=== PATIENT | female | born 1955 | race Caucasian/White ===

== ENCOUNTER → 2016-10-03 | Outpatient (CLI) | payer OTHER ==
[2016-10-03 12:36] LABS: CH 29.1; CHCM 30.5; HCT 28.1 % (34.0-46.0); HDW 3.07; HGB 8.8 gm/dL (11.4-16.0); Hypochromasia Marked; MCHC 31.3 g/dL (31.0-37.0); MCV 95.8 fL (80.0-100.0); Mean Platelet Volume 8.4; RBC 2.94 m/uL (3.80-5.40); RDW 14.3 % (11.5-15.5); WBC 7.9 k/uL (3.8-10.6)
[2016-10-03 12:57] LABS: Appearance,Urine Clear (Clear); Bilirubin,Urine Negative (Negative); Glucose,Urine (UA) Negative (Negative); Ketones,Urine Negative (Negative); Leukocyte Esterase,Urine Moderate (Negative); Nitrite,Urine Negative (Negative); PH, Urine 6.5 (5.0-8.0); Particle Count 1605; Protein,Urine Trace (Negative); Specific Gravity,Urine 1.005 (1.001-1.035); Squamous Epithelial Cell,Urine 1 /hpf (0-4); UA Billing (MACRO vs. MICRO) MICRO; Urobilinogen,Urine <2.0 mg/dL (<2.0); WBC,Urine 8 /hpf (0-5)
[2016-10-03 13:08] LABS: Calcium 9.1 mg/dL (8.4-10.2); Magnesium 1.9 mg/dL (1.6-2.3); Phosphorous 4.3 mg/dL (2.5-4.5); Potassium 4.4 mmol/L (3.5-5.1); Uric Acid 5.7 mg/dL (3.7-7.4)
[2016-10-03 13:19] LABS: % Iron Saturation 15.4 % (20-50)
== END | disposition home or self-care (01) ==
LOC: LABWHC1 12:00
PROVIDERS: ATTEND Nurse Practitioner Family
DX: N17.9 Acute kidney failure, unspecified (principal); D64.9 Anemia, unspecified; E83.42 Hypomagnesemia; N39.0 Urinary tract infection, site not specified; E21.3 Hyperparathyroidism, unspecified; M10.9 Gout, unspecified
CPT/HCPCS: 36415; 80048; 81001; 82306; 82728; 83540; 83550; 83735; 83970; 84100; 84550; 85027

== ENCOUNTER → 2016-11-08 | Outpatient (CLI) | payer OTHER ==
[2016-11-08 11:18] LABS: Appearance,Urine Cloudy (Clear); Bilirubin,Urine Negative (Negative); Glucose,Urine (UA) Negative (Negative); Ketones,Urine Negative (Negative); Leukocyte Esterase,Urine Large (Negative); Mucus,Urine Rare /hpf; Nitrite,Urine Negative (Negative); Particle Count 2970; Protein,Urine Trace (Negative); RBC,Urine 5 /hpf (0-5); Specific Gravity,Urine 1.009 (1.001-1.035); Squamous Epithelial Cell,Urine 1 /hpf (0-4); UA Billing (MACRO vs. MICRO) MICRO; Urobilinogen,Urine <2.0 mg/dL (<2.0); WBC,Urine 60 /hpf (0-5)
[2016-11-08 11:21] LABS: CH 29.8; CHCM 30.9; HCT 28.1 % (34.0-46.0); HDW 2.81; HGB 8.8 gm/dL (11.4-16.0); Hypochromasia Moderate; MCH 30.3 pg (25.0-35.0); MCHC 31.3 g/dL (31.0-37.0); MCV 96.7 fL (80.0-100.0); RBC 2.91 m/uL (3.80-5.40); RDW 15.6 % (11.5-15.5); WBC 7.6 k/uL (3.8-10.6)
[2016-11-08 12:46] LABS: Calcium 9.2 mg/dL (8.4-10.2); Phosphorous 5.7 mg/dL (2.5-4.5); Potassium 5.5 mmol/L (3.5-5.1); Uric Acid 6.8 mg/dL (3.7-7.4)
[2016-11-08 12:55] LABS: % Iron Saturation 18.2 % (20-50)
== END | disposition home or self-care (01) ==
LOC: LABWHC1 10:25
PROVIDERS: ATTEND Nurse Practitioner Family
DX: N17.9 Acute kidney failure, unspecified (principal); D50.9 Iron deficiency anemia, unspecified; N39.0 Urinary tract infection, site not specified; E21.3 Hyperparathyroidism, unspecified; E55.9 Vitamin D deficiency, unspecified; M10.9 Gout, unspecified
CPT/HCPCS: 36415; 80048; 81001; 82306; 82728; 83540; 83550; 83735; 83970; 84100; 84550; 85027

== ENCOUNTER 2016-11-22 07:57 | Day surgery (SDC) | payer OTHER ==
[~2016-11-22 07:57] MED LIST: ALPRAZolam 0.25 MG TAB PO PRN; ASPIRIN 325 MG TAB PO STA; SODIUM CHLORIDE 0.9% 1,000 ML in EMPTY BAG 1 BAG IV ONE
[2016-11-22] MEDS ORDERED: SODIUM CHLORIDE 0.9% 1,000 ML IV ONE (08:15)
[2016-11-22 08:34] VITALS: RESP 16; TEMP 97
[2016-11-22 08:44] LABS: Basophils % (A) 1 %; CH 30.7; Eosinophils # (A) 0.2 k/uL (0-0.7); Eosinophils % (A) 3 %; HCT 27.6 % (34.0-46.0); HDW 2.85; HGB 8.7 gm/dL (11.4-16.0); Hypochromasia Slight; Luc # (Auto) 0.08; Luc % (Auto) 1; Lymphocytes # (A) 1.3 k/uL (1.0-4.8); Lymphocytes % (A) 21 %; MCH 30.4 pg (25.0-35.0); MCHC 31.6 g/dL (31.0-37.0); MCV 96.1 fL (80.0-100.0); Mean Platelet Volume 9.6; Monocytes # (A) 0.4 k/uL (0-1.0); Monocytes % (A) 7 %; Neutrophils % (A) 66 %; RBC 2.87 m/uL (3.80-5.40); RDW 15.5 % (11.5-15.5); WBC 6.1 k/uL (3.8-10.6); WBC (Perox) 5.59
[2016-11-22 08:57] LABS: Calcium 8.8 mg/dL (8.4-10.2); Potassium 4.6 mmol/L (3.5-5.1)
[2016-11-22] MEDS ORDERED: CLOPIDOGREL 75 MG TAB ONE (09:09)
[2016-11-22] MEDS ORDERED: CLOPIDOGREL 75 MG TAB PO ONE (09:13)
[2016-11-22] MEDS ORDERED: ASPIRIN 325 MG TAB PO ONE (09:14)
[2016-11-22 09:23] LABS: Glucose,Whole Blood 104 mg/dL (75-99)
[2016-11-22] MEDS ORDERED: MIDAZOLAM 2 MG/2 ML VIAL IV ONE (10:00)
[2016-11-22] MEDS ORDERED: LIDOCAINE 2% INJ 20 MG/ML SQ ONE (10:15)
[2016-11-22] MEDS ORDERED: IODIXANOL 320 MG/ML 100 ML INTRAARTER ONE (10:29)
[2016-11-22] MEDS ORDERED: SODIUM CHLORIDE 0.9% 1,000 ML IV SCH (10:45)
--- NOTE | 2016-11-22 11:26 | PCN ---
DATE OF PROCEDURE: 11/22/2016 PERFORMING PHYSICIAN: Erlin Muñiz MD, soap slabber. PROCEDURE PERFORMED: 1. An aortic arch angiogram. 2. Selective right and left carotid angiogram. 3. Selective right common femoral artery angiogram. INDICATION: This is a pleasant, 61-year-old female patient with a known coronary artery disease and prior coronary artery bypass grafting who underwent a carotid duplex study in our office and that showed severe right internal carotid artery disease. She was brought today to undergo an aortic arch and carotid angiogram. APPROACH: Right common femoral artery. COMPLICATIONS: None. LEVEL OF SEDATION: Moderate with a length of sedation of about a half an hour. PROCEDURE DESCRIPTION: After obtaining an informed consent, the patient was brought to the cardiac landscaping and groundskeeping laborer. The right common femoral artery was cannulated using micropuncture technique. The micropuncture wire passed easily. Then I placed a 5-Brazilian sheath in the right common femoral artery. Subsequently, I did an aortic arch angiogram using 5-Brazilian pigtail catheter and bilateral carotid angiogram using JB2 catheter. The procedure was completed without any complication. SELECTIVE PERIPHERAL ANGIOGRAM: 1. The aortic arch is a bovine arch and seems to be angiographically normal. 2. The right carotid system: The right common carotid artery appeared to have mild disease only by the bifurcation into internal and external carotid. The right external carotid artery appeared to have severe lesion in the range of 80% to 90%. The right internal carotid artery appeared to have a plaque as well in the range of 70%. 3. The left carotid system: The left common carotid artery appeared to be angiographically normal. The left internal carotid artery appeared to have mild disease only. The left external carotid artery appeared to be have mild disease only as well. CONCLUSION: 1. Bovine arch. 2. Severe disease involving the ostial and proximal right internal carotid artery. POSTPROCEDURE MANAGEMENT: 1. Maximize medical treatment. 2. Follow up with the patient.
--- NOTE | 2016-11-22 11:27 | IR ---
EXAMINATION TYPE: IR angio aortic arch DATE OF EXAM: 11/22/2016 11:11 AM COMPARISON: NONE HISTORY: Carotid stenosis Fluoroscopy support supplied to the referring clinician. See dictated report from cardiology, 3 lloyd nay fluoroscopy time, 132 intraoperative C-arm images document the procedure
[2016-11-22 16:21] VITALS: PULSE 54
[2016-11-22 18:26] VITALS: BP 145/72
== END 2016-11-22 17:02 | disposition home or self-care (01) ==
LOC: CATHCVL 07:57
PROVIDERS: ATTEND Internal Medicine Interventional Cardiology
DX: I65.21 Occlusion and stenosis of right carotid artery (principal); I10 Essential (primary) hypertension; E78.5 Hyperlipidemia, unspecified; I25.5 Ischemic cardiomyopathy; I25.10 Atherosclerotic heart disease of native coronary artery without angina pectoris; Z95.1 Presence of aortocoronary bypass graft; Z87.891 Personal history of nicotine dependence; Z82.49 Family history of ischemic heart disease and other diseases of the circulatory system; E11.9 Type 2 diabetes mellitus without complications; Z79.84 Long term (current) use of oral hypoglycemic drugs; Z79.02 Long term (current) use of antithrombotics/antiplatelets; Z79.82 Long term (current) use of aspirin; Z79.899 Other long term (current) drug therapy
CPT/HCPCS: 36222; 80048; 85025; 99152; 99153; C1769 ×3; C1894; J2001; J2250; Q9967

== ENCOUNTER 2017-01-08 23:27 | Inpatient (IN) | payer OTHER ==
--- NOTE | 2017-01-09 00:03 | ED ---
Weakness HPI - General Chief complaint: Weakness Stated complaint: Weakness Time Seen by Provider: 01/08/17 23:30 Source: patient, family, EMS Mode of arrival: EMS Limitations: altered mental status - History of Present Illness Initial comments: This patient is 61-year-old woman brought in by EMS to be evaluated for mental status changes. Most of the history is from the patient's granddaughter, who is at the bedside, and states that the patient has been confused and disoriented. Family members were speaking to her she was unable to understand what they were saying. At one point she appeared to be trying to converse with someone who was not there. The patient is denying complaints but stating that she cannot feel her body. She is not having pain. No dyspnea. She did have a loose bowel movement but they state there was no blood. MD Complaint: generalized weakness, lack of energy -: hour(s) - Related Data Home Medications Medication Instructions Recorded Confirmed Atorvastatin [Lipitor] 40 mg PO HS 08/16/16 01/08/17 Previous Rx's Medication Instructions Recorded Amiodarone [Cordarone] 200 mg PO DAILY #30 tab 07/04/16 Clopidogrel [Plavix] 75 mg PO DAILY #30 tab 07/04/16 Metoprolol Tartrate [Lopressor] 25 mg PO BID #60 tab 07/04/16 Pioglitazone HCl [Actos] 30 mg PO DAILY #60 tab 07/04/16 Aspirin 81 mg PO DAILY #30 chew 08/20/16 Cefuroxime [Ceftin] 250 mg PO BID #6 tablet 08/20/16 Allergies Allergy/AdvReac Type Severity Reaction Status Date / Time No Known Allergies Allergy Verified 01/08/17 23:31 Review of Systems ROS Statement: Those systems with pertinent positive or pertinent negative responses have been documented in the HPI. ROS Other: All systems not noted in ROS Statement are negative. Limitations: ROS unobtainable due to patients medical condition Constitutional: Denies: fever Respiratory: Denies: cough, dyspnea Cardiovascular: Denies: chest pain Gastrointestinal: Reports: diarrhea. Denies: abdominal pain Musculoskeletal: Denies: back pain Neurological: Reports: weakness. Denies: headache Past Medical History Past Medical History: COPD, Diabetes Mellitus, Hypertension, Myocardial Infarction ([place]) Additional Past Medical History / Comment(s): Obesity, coronary artery disease, hypertension, hyperlipidemia, diabetes mellitus, right internal carotid artery disease with less than 70% blockage, poor dental hygiene with multiple decayed teeth both in the upper and lower jaws, COPD with a baseline FEV1 of 62% of predicted, CHF with a preoperative ejection fraction of 35-40%, recently dx w/ rt breast cancer-no tx as of yet.PT HAD A PNE VACCINE NOT SURE OF DATE BUT PER OLD HX PT DUE IN 2017. Last Myocardial Infarction Date:: "I was young" unsure of year| History of Any Multi-Drug Resistant Organisms: None Reported Past Surgical History: Coronary Bypass/CABG, Heart Catheterization, Tubal Ligation Additional Past Surgical History / Comment(s): double cabg 06-28-16 Past Anesthesia/Blood Transfusion Reactions: No Reported Reaction Past Psychological History: No Psychological Hx Reported Smoking Status: Former smoker Past Alcohol Use History: None Reported Additional Past Alcohol Use History / Comment(s): smoked x 40 years, quit jun 20 2016. Past Drug Use History: None Reported - Past Family History Mother History Unknown: Yes Family Medical History: Diabetes Mellitus Additional Family Medical History / Comment(s): complications of DM at 57 Father History Unknown: Yes Family Medical History: Myocardial Infarction ([place]) Additional Family Medical History / Comment(s): passed in 60's alcoholism General Exam Limitations: no limitations General appearance: alert, in no apparent distress Head exam: Present: atraumatic, normocephalic Eye exam: Present: normal appearance. Absent: scleral icterus, conjunctival injection ENT exam: Present: mucous membranes dry Neck exam: Present: normal inspection, full ROM. Absent: meningismus Respiratory exam: Present: normal lung sounds bilaterally. Absent: respiratory distress, wheezes, rales, rhonchi, stridor, accessory muscle use Cardiovascular Exam: Present: regular rate, normal rhythm, normal heart sounds. Absent: systolic murmur, diastolic murmur, rubs, gallop GI/Abdominal exam: Present: soft. Absent: distended, tenderness, guarding, rebound, rigid, mass Extremities exam: Present: normal inspection, normal capillary refill. Absent: pedal edema, calf tenderness Back exam: Present: normal inspection. Absent: CVA tenderness (R), CVA tenderness (L) Neurological exam: Present: alert, CN II-XII intact. Absent: oriented X3 ( Patient is oriented to person and place but not date), motor sensory deficit Skin exam: Present: warm, dry, intact, pallor. Absent: rash Course Vital Signs 01/08/17 01/09/17 01/09/17 23:28 00:31 01:00 Temperature 100.8 F H 99 F Pulse Rate 80 77 75 Respiratory 20 18 16 Rate Blood Pressure 119/56 123/74 108/53 O2 Sat by Pulse 100 97 97 Oximetry 01/09/17 02:00 Temperature 98.9 F Pulse Rate 76 Respiratory 20 Rate Blood Pressure 121/78 O2 Sat by Pulse 98 Oximetry EKG Findings - EKG Comments: EKG Findings:: There are lateral and inferior ST abnormalities - EKG Results: EKG: interpreted by ERMD, sinus rhythm (Rate 75 bpm), normal axis, normal QRS Medical Decision Making - Lab Data Result diagrams: 01/09/17 00:49 01/09/17 00:49 Lab Results 01/08/17 01/09/17 01/09/17 Range/Units 23:46 00:49 00:49 WBC (3.8-10.6) k/uL RBC (3.80-5.40) m/uL Hgb (11.4-16.0) gm/dL Hct (34.0-46.0) % MCV (80.0-100.0) fL MCH (25.0-35.0) pg MCHC (31.0-37.0) g/dL RDW (11.5-15.5) % Plt Count (150-450) k/uL Manual Slide Review Large Platelets PT (9.0-12.0) sec INR (<1.1) APTT (22.0-30.0) sec Sodium 137 (137-145) mmol/L Potassium 5.0 (3.5-5.1) mmol/L Chloride 102 (98-107) mmol/L Carbon Dioxide 25 (22-30) mmol/L Anion Gap 10 mmol/L BUN 36 H (7-17) mg/dL Creatinine 2.40 H (0.52-1.04) mg/dL Est GFR (MDRD) Af Amer 25 (>60 ml/min/1.73 sqM) Est GFR (MDRD) Non-Af 20 (>60 ml/min/1.73 sqM) Glucose 123 H (74-99) mg/dL Plasma Lactic Acid Narayan 1.4 (0.7-2.0) mmol/L Calcium 8.2 L (8.4-10.2) mg/dL Phosphorus 4.0 (2.5-4.5) mg/dL Magnesium 1.6 (1.6-2.3) mg/dL Total Bilirubin 0.9 (0.2-1.3) mg/dL AST 46 H (14-36) U/L ALT 56 H (9-52) U/L Alkaline Phosphatase 175 H (38-126) U/L Troponin I <0.012 (0.000-0.034) ng/mL Total Protein 6.2 L (6.3-8.2) g/dL Albumin 3.1 L (3.5-5.0) g/dL Blood Type Blood Type Recheck Antibody Screen Crossmatch Spec Expiration Date 01/09/17 01/09/17 01/09/17 Range/Units 00:49 00:49 00:49 WBC 0.3 L* (3.8-10.6) k/uL RBC 2.17 L (3.80-5.40) m/uL Hgb 6.6 L* D (11.4-16.0) gm/dL Hct 20.1 L (34.0-46.0) % MCV 92.9 (80.0-100.0) fL MCH 30.4 (25.0-35.0) pg MCHC 32.7 (31.0-37.0) g/dL RDW 15.1 (11.5-15.5) % Plt Count 96 L D (150-450) k/uL Manual Slide Review Performed Large Platelets Present PT 12.0 (9.0-12.0) sec INR 1.2 (<1.1) APTT 25.3 (22.0-30.0) sec Sodium (137-145) mmol/L Potassium (3.5-5.1) mmol/L Chloride (98-107) mmol/L Carbon Dioxide (22-30) mmol/L Anion Gap mmol/L BUN (7-17) mg/dL Creatinine (0.52-1.04) mg/dL Est GFR (MDRD) Af Amer (>60 ml/min/1.73 sqM) Est GFR (MDRD) Non-Af (>60 ml/min/1.73 sqM) Glucose (74-99) mg/dL Plasma Lactic Acid Narayan (0.7-2.0) mmol/L Calcium (8.4-10.2) mg/dL Phosphorus (2.5-4.5) mg/dL Magnesium (1.6-2.3) mg/dL Total Bilirubin (0.2-1.3) mg/dL AST (14-36) U/L ALT (9-52) U/L Alkaline Phosphatase (38-126) U/L Troponin I (0.000-0.034) ng/mL Total Protein (6.3-8.2) g/dL Albumin (3.5-5.0) g/dL Blood Type A Positive Blood Type Recheck No Antibody Screen NEGATIVE Crossmatch See Detail Spec Expiration Date 01/12/2017 - 2344 Disposition Clinical Impression: Neutropenia, Pancytopenia, Acute renal failure Disposition: ADMITTED IP TO THIS [facility] Condition: Serious
--- NOTE | 2017-01-09 00:44 | XR ---
EXAM: XR Chest, 1 View. CLINICAL HISTORY: Reason: MS change TECHNIQUE: Frontal view of the chest. COMPARISON: 07/04/2016 FINDINGS: Lungs: Bilateral pulmonary hyperinflation. No focal consolidation. Pleural space: Unremarkable. No pneumothorax. Heart: Postoperative mediastinum and cardiomediastinal silhouette. Mediastinum: See above. Bones/joints: No acute osseous abnormality. IMPRESSION: No acute cardiopulmonary process.
[2017-01-09 01:03] LABS: Aty Lym Flag Moderate; CH 30.4; CHCM 32.8; HCT 20.1 % (34.0-46.0); HDW 3.23; MCH 30.4 pg (25.0-35.0); MCHC 32.7 g/dL (31.0-37.0); MCV 92.9 fL (80.0-100.0); Mean Platelet Volume 9.9; RBC 2.17 m/uL (3.80-5.40); RDW 15.1 % (11.5-15.5); WBC (Perox) 0.31
--- NOTE | 2017-01-09 01:05 | CT ---
EXAM: CT Head Without Intravenous Contrast. CLINICAL HISTORY: Reason: weakness TECHNIQUE: Axial computed tomography images of the head/brain without intravenous contrast. CTDI is 57.40 mGy and DLP is 96.50 mGy-cm This CT exam was performed using one or more of the following dose reduction techniques: automated exposure control, adjustment of the mA and/or kV according to patient size, and/or use of iterative reconstruction technique. COMPARISON: 06/19/2016 FINDINGS: Brain: No acute intracranial hemorrhage, loss of sal-white differentiation, or significant mass effect. Areas of hypoattenuation in the periventricular white matter are compatible with the sequela of chronic small vessel ischemic disease. Ventricles: Unremarkable. No ventriculomegaly. Bones/joints: Unremarkable. No acute fracture. Soft tissues: Unremarkable. Sinuses: Unremarkable as visualized. No acute sinusitis. Mastoid air cells: Unremarkable. IMPRESSION: No acute cardiopulmonary process.
[2017-01-09 01:11] LABS: Calcium 8.2 mg/dL (8.4-10.2); Magnesium 1.6 mg/dL (1.6-2.3); Total Bilirubin 0.9 mg/dL (0.2-1.3); Total Protein 6.2 g/dL (6.3-8.2)
[2017-01-09 01:12] LABS: HGB 6.6 gm/dL (11.4-16.0); INR 1.2 (<1.1); Partial Thromboplastin Time 25.3 sec (22.0-30.0)
[2017-01-09] MEDS ORDERED: CEFEPIME 2 GM in SODIUM CHLORIDE 0.9% 50 ML IVPB STA (01:15)
[2017-01-09 01:25] LABS: Large Platelets Present; Manual Review Performed
[2017-01-09 01:26] LABS: Add Differential Manual Differential
[2017-01-09] MEDS ORDERED: SODIUM CHLORIDE 0.9% 1,000 ML IV ONE (01:44)
[2017-01-09 01:48] LABS: WBC 0.3 k/uL (3.8-10.6)
[2017-01-09] MEDS ORDERED: ONDANSETRON 4 MG/2 ML VIAL IVP PRN (02:12)
[2017-01-09] MEDS ORDERED: MORPHINE SULFATE 4 MG/ML SYRINGE IV PRN (02:12)
[2017-01-09] MEDS ORDERED: NALOXONE 0.4 MG/ML 1 ML VIAL IV PRN (02:12)
[2017-01-09] MEDS ORDERED: DOCUSATE 100 MG CAP PO PRN (02:12)
[2017-01-09 03:20] VITALS: BMI 29.3
[2017-01-09] MEDS ORDERED: IV VANCOMYCIN PER PHARMACY 1 EACH MISC MISCELLANE PRN (06:51)
[2017-01-09] MEDS: SODIUM CHLORIDE 0.9% 1,000 ML IV SCH ×3 (07:23→17:03)
[2017-01-09] MEDS ORDERED: VANCOMYCIN 1,500 MG in SODIUM CHLORIDE 0.9% 250 ML IVPB ONE (08:00)
[2017-01-09] MEDS ORDERED: RX INFO: IV CONTRAST WAS GIVEN 1 EACH MISC MISCELLANE PRN (08:19)
[2017-01-09] MEDS ORDERED: IOHEXOL 350 MG/ML 25 ML BOTTLE (ORAL USE) PO PRN (08:19)
[2017-01-09] MEDS: IOHEXOL 350 MG/ML 25 ML BOTTLE (ORAL USE) PO PRN ×2 (08:51→09:45)
[2017-01-09] MEDS ORDERED: PANTOPRAZOLE 40 MG/10 ML VIAL IV SCH (09:00)
[2017-01-09] MEDS: FILGRASTIM-SNDZ 480 MCG/0.8 ML SYRINGE SQ SCH (09:45)
[2017-01-09] MEDS ORDERED: ONDANSETRON 4 MG TAB PO PRN (10:22)
--- NOTE | 2017-01-09 10:51 | CT ---
EXAMINATION TYPE: CT abdomen pelvis wo con DATE OF EXAM: 01/09/2017 10:25 AM COMPARISON: NONE INDICATION: abdominal pain DLP: 815 mGycm, Automated exposure control for dose reduction was used. CONTRAST: 0 mL of Omnipaque 300. Study performed with Oral Contrast TECHNIQUE: Axial images were obtained from above the diaphragm to the pubic rami in the axial plane a t 5 mm thick sections. Reconstructed images are reviewed on the computer in the coronal plane. FINDINGS: Limited CT sections are obtained the lung bases. There is a 0.6 cm pneumonitis within the periphery of the right middle lobe at the major fissure. Small hiatal hernia is present CT ABDOMEN: Liver: Normal Spleen: Normal Pancreas: Atrophic Adrenal glands: Minimal fusiform prominence of the left adrenal gland at 1.3 cm may be present. Gallbladder: Some minimal sludge or debris may be within the gallbladder. Kidneys: No masses are evident. No hydronephrosis is present. No cysts are present. Several hyperd ensities are present within the bilateral kidneys which could be some cortical medullary junction ruperto cifications. No hydronephrosis is evident. On the posterior lateral left kidney this measures 0.4 cm. More inferiorly this measures 0.3 cm which may be a vascular calcification. At the inferior pole 0.3 cm and 0.4 cm suspected calcification. Within the inferior pole right kidney is a 0.4 cm calcificati on. A 0.3 cm calcifications in the mid to inferior pole posterior lateral mid renal stone measures 0. 4 cm on the right. Aorta: Vascular calcification is within the aorta. Inferior vena cava: Normal. CT PELVIS: Loops of bowel within the abdomen and pelvis are normal. There are loops of bowel which are incom pletely distended or lack oral contrast limiting their evaluation. Appendix: Normal as visualized. Urinary bladder: Normal. Genitourinary structures: Uterus appears normal. Adnexal regions are clear. Osseous structures: No suspicious lytic or sclerotic lesions. IMPRESSIONS: 1. Scattered nonobstructing bilateral renal stones. 2. Some minimal sludge may be within the gallbladder. 3. Mild fusiform prominence left adrenal gland 1.3 cm. 4. 0.6 cm area of pneumonitis along the major fissure in the right middle lobe at the lung base
[2017-01-09] MEDS: CLOPIDOGREL 75 MG TAB PO SCH (11:14)
[2017-01-09] MEDS: ASPIRIN 81 MG CHEW PO SCH (11:14)
[2017-01-09] MEDS: METOPROLOL TARTRATE 25 MG TAB PO SCH ×2 (11:14→21:13)
[2017-01-09] MEDS: AMIODARONE 200 MG TAB PO SCH (11:15)
[2017-01-09 16:45] LABS: Appearance,Urine Turbid (Clear); Bilirubin,Urine Negative (Negative); Glucose,Urine (UA) Negative (Negative); Ketones,Urine Negative (Negative); Leukocyte Esterase,Urine Small (Negative); Nitrite,Urine Negative (Negative); PH, Urine 5.5 (5.0-8.0); Particle Count 39412; Protein,Urine 1+ (Negative); RBC,Urine >182 /hpf (0-5); Squamous Epithelial Cell,Urine 4 /hpf (0-4); UA Billing (MACRO vs. MICRO) MICRO; Uric Acid Crystals,Urine Moderate /hpf; Urobilinogen,Urine <2.0 mg/dL (<2.0)
[2017-01-09] MEDS: ACETAMINOPHEN TAB 325 MG TAB PO PRN (18:16)
--- NOTE | 2017-01-09 18:43 | HP ---
DATE OF ADMISSION: 01/09/2017 PRESENTING COMPLAINT: Altered mental status, low-grade fever. HISTORY OF PRESENTING COMPLAINT: This is a 61-year-old patient of Dr. Osvaldo Paredes diagnosed with breast cancer in June of last year, uterine cancer 2 months ago. Patient is getting chemotherapy per Dr. Cervantes. Last chemotherapy was about 7 days ago. Patient was doing relatively fine, but gradually over a course of a few days appetite went down. Patient started becoming more confused, started running a low-grade fever, becoming much more lethargic. Patient was admitted for the same. Patient's chronic stable medical conditions include COPD, diabetes, hypertension, coronary artery disease, CHF. Patient's daughter is at the bedside, who is giving the history. Patient is rather lethargic but arousable, then dozes off. Extent of cancer is not known to the patient's daughter. REVIEW OF SYSTEMS: As above. Patient herself cannot give much of a history. PAST MEDICAL HISTORY: 1. COPD. 2. Diabetes. 3. Hypertension. 4. Coronary artery disease. 5. CHF with EF 35% to 40%. 6. Right internal carotid artery blockage less than 70%. 7. Poor dental hygiene. 8. Breast and lung cancer. PAST SURGICAL HISTORY: 1. Coronary artery bypass in June of 2016. 2. Cardiac catheterization. 3. Tubal ligation. 4. Patient had been a smoker ( ) last year. 5. History of paroxysmal atrial fibrillation. SOCIAL HISTORY: Patient smoked for about 40 years; stopped in May of 2016. No alcohol. Lives with her daughter. FAMILY HISTORY: Diabetes. HOME MEDICATIONS: 1. Zofran 8 mg q.8 p.r.n. 2. Lopressor 25 mg b.i.d. 3. Magnesium oxide 400 mg p.o. daily. 4. Zestril 2.5 mg p.o. daily. 5. Vitamin D2, 50,000 units p.o. . 6. Plavix 75 mg p.o. daily. 7. Lipitor 40 mg p.o. at bedtime. 8. Aspirin 81 mg p.o. daily. 9. Amiodarone 200 mg p.o. daily. ALLERGIES: NONE. PHYSICAL EXAMINATION: VITAL SIGNS ON PRESENTATION: Temperature 100.8, pulse 80, respiration 20, blood pressure 119/56, pulse ox 100% on room air. GENERAL APPEARANCE: Average build. Lying in bed. Rather lethargic, but arousable. EYES: Pupils equal. Conjunctivae normal. HEENT: Decreased hair. External appearance of nose and ears normal. Oral cavity with dry mucous membrane. NECK: JVD unable to assess. Mass not palpable. RESPIRATORY: Effort normal. LUNGS: Decreased breath sounds. CARDIOVASCULAR: First and second sounds normal. No edema. ABDOMEN: Soft, nontender. Liver and spleen not palpable. LYMPHATIC: No lymph node palpable in neck or axillae. PSYCHIATRY: Unable to assess. Patient ( ). NEUROLOGICAL: Pupils equal. No facial asymmetry. Moving all 4 limbs. INVESTIGATIONS: White count 0.3, hemoglobin 6.6, platelets 96. Potassium 5. BUN 36, creatinine 2.40. Patient's labs on 11/22/16 were 41/1.99. Urine showing some uric acid crystals. CT scan of the brain shows some chronic small-vessel changes. Chest x-ray: nil acute. Some bilateral hyperinflation. CT scan of the abdomen and pelvis showed non-obstructive bilateral kidney stones; questionable sludge in the gallbladder. ASSESSMENT: 1. Altered mental status in a patient who is getting chemotherapy with a diagnosis of uterine cancer and breast cancer by Dr. Cervantes. This has progressed over the course of the week. Patient has underlying pancytopenia, fever, and this well could be metabolic encephalopathy; of course, metastasis to the brain needs to be ruled out, but cannot give any dye in view of the renal function. 2. Chronic obstructive pulmonary disease in an ex-smoker. 3. Essential hypertension. 4. Coronary artery disease with prior history of coronary artery bypass. 5. Chronic congestive heart failure from systolic dysfunction, ejection fraction 35% to 40%, from ischemic cardiomyopathy. 6. Breast cancer. 7. Uterine cancer. 8. Pancytopenia from chemotherapy. 9. Paroxysmal atrial fibrillation with a history of atrial fibrillation. PLAN: Home medications will be resumed. Patient has been put on Filgrastim by Oncology. Will get an infectious disease consultation. Care was discussed with the daughter who is at bedside. Will hydrate the patient. Hold off patient's Zestril in view of the renal failure. Overall prognosis is guarded.
[2017-01-09] MEDS ORDERED: BENZOCAINE/MENTHOL LOZENG 1 EACH LOZENGE MUCOUS MEM PRN (20:12)
[2017-01-09] MEDS: MAG HYDROX/AL HYDROX/SIMETH 30 ML, diphenhydrAMINE ELIXIR 75 MG, LIDOCAINE VISCOUS 30 ML PO SCH ×6 (21:08→21:14)
[2017-01-09 21:09] LABS: Glucose,Whole Blood 87 mg/dL (75-99)
[2017-01-09] MEDS: CEFEPIME 2 GM in SODIUM CHLORIDE 0.9% 50 ML IVPB SCH (21:10)
[2017-01-09] MEDS: INSULIN LISPRO (humaLOG) 300 UNIT/3 ML VIAL SQ SCH (21:13)
[2017-01-09] MEDS: ATORVASTATIN 40 MG TAB PO SCH (21:14)
--- NOTE | 2017-01-09 22:36 | P.CONS ---
History of Present Illness - Reason for Consult Consult date: 01/09/17 Febrile neutropenia. Chemotherapy-induced pancytopenia - History of Present Illness The patient is a 61-year-old lady, with a very complicated oncologic history. She had not had any medical follow-up for several years, when she presented in 06/10 with chest pain. She was found to have a AZ, and had CABG. During the surgery, she was found to have a mass in the middle, inner portion of the left breast that appeared to be hard and fixed. She was seen by Dr. Martinez, with biopsy confirming hormone receptor positive, HER-2/jack negative breast cancer. The patient had the locally advanced disease, with invasion of the skin and possible fixation to the chest wall. She was seen in the office, and had a PET scan. The PET scan showed uptake in the pelvic lymph nodes, as well as in the uterus. It was felt that the patient likely had a second primary in the uterus, with spread to the lymph nodes. She was placed on anastrozole, and then referred to [facility]. She ultimately had a uterine biopsy in , that was positive for uterine adenocarcinoma. The patient was then referred to [facility] oncology at [facility]. On review of the case, they felt that the patient should have preop chemotherapy, followed by attempt at resection of both cancers. Restaging did not show any evidence of progressive disease. Anastrozole was stopped, and the patient was started on carboplatin and Taxol. She is status post 2 cycles. Last chemotherapy was about a week ago. Per the family's since the chemotherapy the patient has been quite tired and weak. Over the last day or so , she has been complaining of pain in her throat and difficulty in swallowing. She also appeared to be somewhat confused and incoherent at times. She was therefore brought into the emergency room. She was noted to have pancytopenia with WBC less than 1000, and hemoglobin in the 6 range. Case was discussed with the ER physician. A temperature of 100.4 was noted in the ER. It was therefore decided to admit her for febrile neutropenia and possible sepsis. Subsequent vitals showed another temp of 100.8. She was started on vancomycin and cefepime in the ER. Consult was placed for further evaluation and recommendations Review of Systems Constitutional: Reports anorexia, Reports fever, Reports weakness Eyes: denies blurred vision, denies pain Ears, nose, mouth and throat: Reports odynophagia, Reports sore throat Breasts: right: masses, skin changes Breasts: Reports as per HPI Cardiovascular: Reports as per HPI, Reports dyspnea on exertion Respiratory: Reports dyspnea Gastrointestinal: Reports abdominal pain, Reports nausea Genitourinary: Denies dysuria, Denies hematuria Menstruation: Reports postmenopausal Musculoskeletal: Reports muscle weakness Integumentary: Denies pruritus, Denies rash Neurological: Reports change in mentation, Reports weakness Psychiatric: Reports confusion Endocrine: Reports fatigue Hematologic/Lymphatic: Reports as per HPI Past Medical History Past Medical History: COPD, Diabetes Mellitus, Hypertension, Myocardial Infarction (AZ) Additional Past Medical History / Comment(s): Obesity, coronary artery disease, hypertension, hyperlipidemia, diabetes mellitus, right internal carotid artery disease with less than 70% blockage, poor dental hygiene with multiple decayed teeth both in the upper and lower jaws, COPD with a baseline FEV1 of 62% of predicted, CHF with a preoperative ejection fraction of 35-40%, recently dx w/ rt breast cancer-no tx as of yet.PT HAD A PNE VACCINE NOT SURE OF DATE BUT PER OLD HX PT DUE IN 2016. Last Myocardial Infarction Date:: "I was young" unsure of year| History of Any Multi-Drug Resistant Organisms: None Reported Past Surgical History: Coronary Bypass/CABG, Heart Catheterization, Tubal Ligation Additional Past Surgical History / Comment(s): double cabg 06-28-16 Past Anesthesia/Blood Transfusion Reactions: No Reported Reaction Past Psychological History: No Psychological Hx Reported Smoking Status: Former smoker Past Alcohol Use History: None Reported Additional Past Alcohol Use History / Comment(s): smoked x 40 years, quit jun 20 2016. Past Drug Use History: None Reported - Past Family History Mother History Unknown: Yes Family Medical History: Diabetes Mellitus Additional Family Medical History / Comment(s): complications of DM at 57 Father History Unknown: Yes Family Medical History: Myocardial Infarction (AZ) Additional Family Medical History / Comment(s): passed in 60's alcoholism Medications and Allergies Home Medications Medication Instructions Recorded Confirmed Type Atorvastatin [Lipitor] 40 mg PO HS 08/16/16 01/09/17 History Ergocalciferol (Vitamin D2) 50,000 unit PO TH 01/09/17 01/09/17 History [Vitamin D2] Lisinopril [Zestril] 2.5 mg PO DAILY 01/09/17 01/09/17 History Magnesium Oxide [Mag-Ox] 400 mg PO DAILY 01/09/17 01/09/17 History Ondansetron HCl [Zofran] 8 mg PO Q8H PRN 01/09/17 01/09/17 History Allergies Allergy/AdvReac Type Severity Reaction Status Date / Time No Known Allergies Allergy Verified 01/09/17 07:34 Physical Exam Vitals: Vital Signs Temp Pulse Pulse Resp BP BP Pulse Ox 01/09/17 17:47 101.1 F H 01/09/17 15:00 100.4 F H 78 16 135/62 98 01/09/17 06:57 99.1 F 01/09/17 06:56 99.1 F 75 18 141/65 95 01/09/17 04:55 99.9 F H 77 16 137/64 100 01/09/17 04:25 99.8 F H 77 18 138/62 100 01/09/17 04:15 100.0 F H 78 18 154/67 100 01/09/17 03:13 100.8 F H 80 16 137/62 98 Intake and Output 01/09/17 01/09/17 01/09/17 06:59 14:59 22:59 Intake Total 435 1000 Balance 435 1000 Intake: IV 125 750 Sodium Chloride 0.9% 1, 125 750 000 ml @ 125 mls/hr IV . Q8H [facility] Rx#:[id number] Intake, IV Titration 250 Amount Vancomycin 1,500 mg In 250 Sodium Chloride 0.9% 250 ml @ 125 mls/hr IVPB ONCE ONE Rx#:[id number] Blood Product 310 Rc As-1 Unit 310 [id number] Other: Voiding Method Diaper Incontinent # Voids 1 Weight 77.5 kg 77.5 kg Patient Weight 01/10/17 06:59 Weight 77.5 kg - Constitutional General appearance: mild distress - EENT Eyes: EOMI, PERRLA ENT: hearing grossly normal, normal oropharynx - Neck Neck: no lymphadenopathy - Respiratory Respiratory: bilateral: CTA - Cardiovascular Rhythm: regular Heart sounds: normal: S1, S2 - Gastrointestinal General gastrointestinal: normal bowel sounds, soft Localized gastrointestinal: tender: RUQ - Integumentary Integumentary: normal - Neurologic Neurologic: CNII-XII intact - Musculoskeletal Musculoskeletal: generalized weakness - Psychiatric mild confusion Results CBC & Chem 7: 01/09/17 00:49 01/09/17 00:49 Labs: Abnormal Lab Results - Last 24 Hours (Table) 01/09/17 Range/Units 16:25 Urine Appearance Turbid H (Clear) Urine Protein 1+ H (Negative) Urine Blood Moderate H (Negative) Ur Leukocyte Esterase Small H (Negative) Urine RBC >182 H (0-5) /hpf Uric Acid Crystals Moderate H (None) /hpf Chest x-ray: report reviewed Assessment and Plan (1) Neutropenic sepsis Narrative/Plan: The patient has severe neutropenia, with fever of greater than 100.4. She also has some mental status changes. The clinical situation is indicative of febrile neutropenia with sepsis. The patient has been started on vancomycin and cefepime. Cultures have been done in the ER are pending at this time. Filgrastim will be ordered. On exam, the patient complained of some pain in the right upper quadrant. In addition to change compared to baseline. Her CT of the brain will also be ordered. Status: Acute (2) Pancytopenia Narrative/Plan: This is due to chemotherapy. Blood transfusion has been ordered. Filgrastim will be started for the low white blood count as noted. Platelets are adequate at this time. Continue to monitor with additional support as needed. Status: Acute (3) Mucositis Narrative/Plan: Due to chemotherapy and neutropenia. Call solution will be started. Morphine has been ordered for pain from mucositis, as well as the abdominal pain. Status: Acute
[2017-01-10] MEDS: SODIUM CHLORIDE 0.9% 1,000 ML IV SCH ×3 (03:58→20:23)
[2017-01-10 07:44] LABS: Glucose,Whole Blood 77 mg/dL (75-99)
--- NOTE | 2017-01-10 07:47 | CONS ---
DATE OF CONSULTATION: 01/09/2017 REASON FOR CONSULTATION: Afebrile neutropenia with sepsis. HISTORY OF PRESENT ILLNESS: The patient is a 61-year-old female with a past medical history significant for uterine and breast cancer, status post resection and has been on chemotherapy in the form of carboplatin and Taxol. The patient recently finished her second cycle about a week ago. After a few days the patient started feeling weak, lethargic and no energy. Some nausea, no vomiting and no significant diarrhea. She also had some mild cough, but not bringing up any sputum. No chest pain. Over the last 24 hours, the patient started having fever as the patient has been brought into the [facility] ER where the patient has been evaluated by the ER physician. The patient did have a chest x-ray which shows bilateral pulmonary hyperinflation. No focal consolidation. The patient was noticed to be neutropenic with a white count of 0.3 and also an elevated BUN and creatinine. The patient did have a CT of the abdomen and pelvis, which did show an area of pneumonitis and bilateral renal stones, but no evidence of any colitis. She has been started on cefepime and vancomycin. ID was consulted for further recommendation regarding antibiotic therapy. Patient remains slightly weak, lethargic and not a very good historian. Most of the information has been obtained from the family member present at the bedside. REVIEW OF SYSTEMS: Positive for weakness along with a fever. EYES: No complaint. ENT: No complaint. RESPIRATORY: As per HPI. CARDIOVASCULAR: No complaint. GENITOURINARY: No complaint. GASTROINTESTINAL: As per HPI. MUSCULOSKELETAL: No complaint. PSYCHOLOGICAL: No complaint. ENDOCRINAL: No complaint. NEUROLOGICAL: No complaint. PAST MEDICAL HISTORY: COPD, diabetes mellitus, hypertension, coronary artery disease/ ID, breast and uterine cancer. PAST SURGICAL HISTORY: Coronary artery bypass grafting, heart catheterization, tubal ligation, endometrial cells as well as breast biopsy. SOCIAL HISTORY: Former smoker; quit back in May 2016 after about 40 pack years of smoking. Denies drinking or drug use. FAMILY HISTORY: Mother with history of diabetes. Father with history of ID. ALLERGIES: No known drug allergies. MEDICATIONS: Currently include the patient is on Tylenol, amiodarone, aspirin, Lipitor, Cepacol lozenges, cefepime, Plavix, Colace, Humalog, Lopressor, vancomycin pharmacy to dose, Narcan, Zofran, Protonix. On examination, blood pressure is 115/57 with a pulse of 65, temperature 97.9. T-max of 1.1. She is 96% on room air. General description is a middle-age female lying in bed in no distress. No tachypnea or accessory muscle of respiration use. HEENT examination shows pallor. There is no scleral icterus. Mucosa membrane dry. NECK: Trachea central. There is no thyromegaly. LUNGS: Unlabored breathing. Some coarse breath sounds at base. No wheeze. HEART: S1, S2. Regular rate and rhythm. ABDOMEN: Soft, no tenderness. EXTREMITIES: No edema of feet. LABS: Hemoglobin is 6.6, white count 0.3 with a BUN of 36, creatinine 2.4. UA has not been significantly positive. Liver enzymes slightly elevated. Blood cultures were not obtained. DIAGNOSTIC IMPRESSION AND PLAN: Patient with febrile neutropenia with sepsis in a patient with history of uterine as well as breast cancer with two cycles of chemo with last cycle about a week ago with evidence of significant neutropenia. The likely source of her sepsis could have been the pneumonia seen on the CT versus a possible transmigration of bacteria because of severe neutropenia. Likely organism to cover will be the gram-positives as well as gram-negative pathogen. PLAN: 1. Blood cultures x2 STAT. 2. Patient will be continued on vancomycin, pharmacy to dose with careful observation of her kidney function in addition to the cefepime, dose adjusted for kidney function. 3. Will follow up on the clinical condition and cultures to further adjust the medication if needed. Thank you for this consultation. Will follow this patient along with you. JUANITAD
[2017-01-10] MEDS: INSULIN LISPRO (humaLOG) 300 UNIT/3 ML VIAL SQ SCH ×4 (07:57→20:13)
[2017-01-10] MEDS: PANTOPRAZOLE 40 MG TABLET PO SCH (08:02)
[2017-01-10] MEDS: AMIODARONE 200 MG TAB PO SCH (08:02)
[2017-01-10] MEDS: CEFEPIME 2 GM in SODIUM CHLORIDE 0.9% 50 ML IVPB SCH (08:02)
[2017-01-10] MEDS: CLOPIDOGREL 75 MG TAB PO SCH (08:03)
[2017-01-10] MEDS: ASPIRIN 81 MG CHEW PO SCH (08:03)
[2017-01-10] MEDS: METOPROLOL TARTRATE 25 MG TAB PO SCH ×2 (08:04→20:23)
[2017-01-10] MEDS: MAG HYDROX/AL HYDROX/SIMETH 30 ML, diphenhydrAMINE ELIXIR 75 MG, LIDOCAINE VISCOUS 30 ML PO SCH ×9 (08:04→17:30)
[2017-01-10] MEDS: ACETAMINOPHEN TAB 325 MG TAB PO PRN (08:11)
[2017-01-10 08:49] LABS: Aty Lym Flag Moderate; CH 31.2; CHCM 33.4; HCT 21.4 % (34.0-46.0); HDW 3.68; HGB 7.1 gm/dL (11.4-16.0); MCH 31.3 pg (25.0-35.0); MCHC 33.4 g/dL (31.0-37.0); MCV 93.8 fL (80.0-100.0); Mean Platelet Volume 9.5; Poikilocytosis Slight; RBC 2.28 m/uL (3.80-5.40); RDW 14.8 % (11.5-15.5); WBC (Perox) 0.64
[2017-01-10 08:54] LABS: WBC 0.6 k/uL (3.8-10.6)
[2017-01-10] MEDS ORDERED: VANCOMYCIN 1,500 MG in SODIUM CHLORIDE 0.9% 250 ML IVPB ONE (09:00)
[2017-01-10 09:05] LABS: Potassium 4.2 mmol/L (3.5-5.1); Total Protein 5.5 g/dL (6.3-8.2)
[2017-01-10 09:06] LABS: Add Differential Manual Differential
[2017-01-10 09:07] LABS: Calcium 7.9 mg/dL (8.4-10.2); Total Bilirubin 0.9 mg/dL (0.2-1.3)
[2017-01-10 09:13] LABS: Hemoglobin A1C 6.1 % (4.2-6.1)
[2017-01-10] MEDS: FILGRASTIM-SNDZ 480 MCG/0.8 ML SYRINGE SQ SCH (09:27)
[2017-01-10 11:35] LABS: Glucose,Whole Blood 92 mg/dL (75-99)
--- NOTE | 2017-01-10 11:50 | CDI ---
In responding to this query, please exercise your independent professional judgment. The [facility] Coding Staff and Clinical Documentation Specialists appreciate your assistance in clarifying documentation, maintaining compliance with coding guidelines, accurately documenting patients condition and capturing severity of illness. The fact that a question is asked does not imply that any particular answer is desired or expected. Communication forms are a method of clarifying documentation and are not made part of the Legal Health Record. Thank you in advance for your clarification. Last Revision, July 2015 David Rizo [address] [facility] [place] [address] Documentation Clarification Form Date: 01/10/2017 11:37:00 AM From: Osvaldo Huber, RN, BSN, CDI Admit Date: 01/09/2017 2:12:00 AM Patient Name: Anna Denton Visit Number: [id number] Dr. Matthew Arreaga: The following has been documented in the nursing progress notes and dietary notes: stage II pressure wound to coccyx. History/Risk Factors: 61 yo female with a history of obesity, DM II, COPD and breast/uterine CA, currently receiving chemo with last dose approx. 1 week ago. Family reports decreased oral intake, mental status changes/lethargy. Clinical Indicators: nurse notes 2x3 pressure injury w/erythema to coccyx on initial note dated 01/09/17. WBC: 0.3, Hgb: 6.6 BMI: 29.3 Treatment: Barrier cream, dietary consult, Glucerna w/meals Definition of Present on Admission (POA): A diagnosis present at the time the order for admission to inpatient status was written. For each diagnosis, documentation must be clear to determine if the condition was present at the time of the patients inpatient admission or developed during the hospital stay. Please clarify in progress notes and discharge summary as to whether the stage II pressure ulcer to the coccyx was: -POA -Not POA -Unable to determine whether POA or not POA Please continue to document in your progress notes and discharge summary in order to capture severity of illness and risk of mortality. Include clinical findings that support your diagnosis. FYI: Press F11 to launch patient chart. BHARGAV
[2017-01-10] MEDS: BENZOCAINE/MENTHOL LOZENG 1 EACH LOZENGE MUCOUS MEM SCH ×3 (13:11→20:18)
[2017-01-10 16:39] LABS: Glucose,Whole Blood 132 mg/dL (75-99)
--- NOTE | 2017-01-10 17:27 | P.PN ---
Subjective Principal diagnosis: febrile neutropenia, chemo induced pancytopenia Pt much more alert today, she is answering questions appropriately, she states she does feel better, her throat is not as sore as previously, no nausea or abd pain, she is drinking fluids without any trouble, she has went to the bathroom, she cannot recall if she had any diarrhea, she is not in any pain at this time. Objective - Vital Signs Vital signs: Vital Signs Temp 98.7 F 01/10/17 15:50 Pulse 65 01/10/17 15:50 Resp 18 01/10/17 15:50 BP 124/59 01/10/17 15:50 Pulse Ox 96 01/10/17 15:50 Intake & Output 01/09/17 01/10/17 01/10/17 18:59 06:59 18:59 Intake Total 1000 1690 Balance 1000 1690 Weight 77.5 kg 80 kg Intake: IV 750 1450 Cefepime 2 gm In Sodium 50 Chloride 0.9% 50 ml @ 100 mls/hr IVPB ONCE STA Rx# :[id number] Sodium Chloride 0.9% 1, 750 1400 000 ml @ 125 mls/hr IV . Q8H [facility] Rx#:[id number] Intake, IV Titration 250 Amount Vancomycin 1,500 mg In 250 Sodium Chloride 0.9% 250 ml @ 125 mls/hr IVPB ONCE ONE Rx#:[id number] Oral 240 Other: Voiding Method Diaper Incontinent # Voids 1 2 # Bowel Movements 1 2 - Constitutional General appearance: Present: cooperative, no acute distress, obese - EENT EENT Comment(s): dry mouth, mild redness, no ulcer or thrush Eyes: Present: anicteric sclerae - Respiratory Respiratory: bilateral: CTA - Cardiovascular Heart sounds: normal: S1, S2 - Gastrointestinal General gastrointestinal: Present: normal bowel sounds, soft. Absent: absent bowel sounds, decreased bowel sounds, distended, hepatomegaly, hyperactive bowel sounds, organomegaly, rigid, scaphoid, splenomegaly, tenderness, umbilical hernia, ventral hernia - Musculoskeletal Musculoskeletal: Present: generalized weakness - Psychiatric Psychiatric Comment(s): Improved mentation, alert, oriented to self, place, time and most of her situation - Labs CBC & Chem 7: 01/10/17 08:16 01/10/17 08:16 Labs: Abnormal Lab Results - Last 24 Hours (Table) 01/10/17 01/10/17 01/10/17 Range/Units 08:16 08:16 16:37 WBC 0.6 L* (3.8-10.6) k/uL RBC 2.28 L (3.80-5.40) m/uL Hgb 7.1 L (11.4-16.0) gm/dL Hct 21.4 L (34.0-46.0) % Plt Count 71 L (150-450) k/uL Chloride 108 H (98-107) mmol/L Carbon Dioxide 21 L (22-30) mmol/L BUN 29 H (7-17) mg/dL Creatinine 2.02 H (0.52-1.04) mg/dL Glucose 71 L (74-99) mg/dL POC Glucose (mg/dL) 132 H (75-99) mg/dL Calcium 7.9 L (8.4-10.2) mg/dL Alkaline Phosphatase 180 H (38-126) U/L Total Protein 5.5 L (6.3-8.2) g/dL Albumin 2.6 L (3.5-5.0) g/dL Microbiology - Last 24 Hours (Table) 01/09/17 16:25 Urine Culture - Preliminary Urine,Clean Catch - Imaging and Cardiology CT scan - abdomen: report reviewed CT Scan - head: report reviewed CT scan - pelvis: report reviewed Assessment and Plan (1) Metabolic encephalopathy Narrative/Plan: Secondary to dehydration and sepsis, mental status improved today. CT head was negative for pathologic process Status: Acute (2) Neutropenic sepsis Narrative/Plan: WBC count still critical low, T-max 101.1F overnight Cont GCS-F Labs monitored daily Cont Empiric abx Cultures pending Status: Acute (3) Mucositis Narrative/Plan: Improved, pt tolerating oral intake Status: Acute (4) Pancytopenia Narrative/Plan: Pancytopenia is secondary to chemotherapy. Cont zarixo for low WBC, no platelet or PRBC transfusion necessary today, CBC in AM Status: Acute
[2017-01-10 20:05] LABS: Glucose,Whole Blood 93 mg/dL (75-99)
[2017-01-10] MEDS: ATORVASTATIN 40 MG TAB PO SCH (20:23)
--- NOTE | 2017-01-10 21:29 | PN ---
DATE OF SERVICE: 01/10/2017 REASON FOR FOLLOWUP: Febrile neutropenia with sepsis. INTERVAL HISTORY: The patient overall feels better and has improved. She is breathing comfortably. She did have a complaint of slight amount of sputum. Unfortunately the sputum was not collected. Denies any chest pain. No abdominal pain. No nausea, vomiting or any diarrhea. On examination, blood pressure is 124/59 with a pulse of 65, temperature 98.7. She is 96% on room air. General description is a middle-aged female lying in bed in no distress. RESPIRATORY SYSTEM: Unlabored breathing. Some coarse breath sounds at the base. No wheeze. HEART: S1, S2. Regular rate and rhythm. ABDOMEN: Soft. No tenderness. LABS: Hemoglobin is 7.1, white count 0.6 with BUN of 29, creatinine 2.02. So far cultures are currently pending. DIAGNOSTIC IMPRESSION AND PLAN: Patient admitted to hospital with febrile neutropenia with sepsis. Source is likely pneumonia. We will try to obtain sputum. Continue the patient on current broad-spectrum antibiotics in the form of cefepime and vancomycin, adjusting further on the basis of the culture report. Continue supportive care.
[2017-01-11] MEDS: SODIUM CHLORIDE 0.9% 1,000 ML IV SCH ×2 (00:18→15:54)
[2017-01-11] MEDS: MAG HYDROX/AL HYDROX/SIMETH 30 ML, diphenhydrAMINE ELIXIR 75 MG, LIDOCAINE VISCOUS 30 ML PO SCH ×15 (00:19→21:41)
[2017-01-11] MEDS: BENZOCAINE/MENTHOL LOZENG 1 EACH LOZENGE MUCOUS MEM SCH ×7 (00:19→23:09)
[2017-01-11 00:41] LABS: Glucose,Whole Blood 80 mg/dL (75-99)
[2017-01-11 06:45] LABS: Glucose,Whole Blood 83 mg/dL (75-99)
--- NOTE | 2017-01-11 08:09 | PN ---
DATE OF SERVICE: 01/10/2017 PRESENTING COMPLAINT: Neutropenic fever. INTERVAL HISTORY: This patient being treated with chemotherapy for both breast cancer and uterine cancer admitted with metabolic encephalopathy and neutropenic fever. Seen by Dr. Stephen from ID who felt this is from pneumonia. Patient a bit more awake today, actually answering questions. Daughter is at bedside. Patient actually did tolerate some diet. Review of systems done for constitutional, cardiovascular, GI, pulmonary; relevant findings as above. Current medications are reviewed that include IV cefepime and vancomycin and saline. On examination, temperature 98.7, pulse 65, respiration 18, blood pressure 124/59, pulse ox 96% on room air. GENERAL APPEARANCE: More awake, lying in bed, less lethargic, still present. EYES: Pupils equal. Conjunctivae normal. NECK: JVD not raised. Mass not palpable. RESPIRATORY: Effort normal. LUNGS: Decreased breath sounds. CARDIOVASCULAR: First and second sounds normal. No edema. ABDOMEN: Soft, nontender. Liver and spleen not palpable. PSYCHIATRY: Patient answering simple questions, more awake. Moving all 4 limbs. INVESTIGATIONS: White count 0.6, hemoglobin 7.1, platelets 71. Potassium 4.2. BUN 29, creatinine 2.02. Blood cultures are negative until now. ASSESSMENT: 1. Neutropenic fever, felt to be pneumonia as per ID. 2. Acute metabolic encephalopathy from underlying infection, slow to respond. 3. Breast cancer and uterine cancer/adenocarcinoma getting treated with chemotherapy. 4. Chronic obstructive pulmonary disease in an ex-smoker. 5. Essential hypertension. 6. Coronary artery disease with a history of coronary artery bypass. 7. Chronic congestive heart failure from systolic dysfunction; ejection fraction 35% to 40% from ischemic cardiomyopathy. 8. Pancytopenia from chemotherapy, getting filgrastim. 9. Paroxysmal atrial fibrillation. 10. Acute renal failure, probably acute tubular necrosis including that from sepsis, slow to respond. PLAN: Continue with antibiotics, IV fluids. Kidney function, slow to respond.
[2017-01-11 08:32] LABS: CH 30.4; CHCM 32.5; HCT 20.3 % (34.0-46.0); HDW 3.46; Hypochromasia Slight; Immature Gran Flag Marked; MCH 31.2 pg (25.0-35.0); MCHC 33.2 g/dL (31.0-37.0); MCV 93.9 fL (80.0-100.0); Mean Platelet Volume 9.1; Poikilocytosis Slight; RBC 2.16 m/uL (3.80-5.40); RDW 14.9 % (11.5-15.5); WBC 2.9 k/uL (3.8-10.6)
[2017-01-11 08:48] LABS: HGB 6.7 gm/dL (11.4-16.0)
[2017-01-11 09:03] LABS: Calcium 7.6 mg/dL (8.4-10.2); Potassium 3.8 mmol/L (3.5-5.1)
[2017-01-11 10:06] LABS: Add Differential Manual Differential
[2017-01-11] MEDS: CEFEPIME 2 GM in SODIUM CHLORIDE 0.9% 50 ML IVPB SCH (10:07)
[2017-01-11] MEDS: AMIODARONE 200 MG TAB PO SCH (10:07)
[2017-01-11] MEDS: ASPIRIN 81 MG CHEW PO SCH (10:07)
[2017-01-11] MEDS: PANTOPRAZOLE 40 MG TABLET PO SCH (10:07)
[2017-01-11] MEDS: CLOPIDOGREL 75 MG TAB PO SCH (10:07)
[2017-01-11] MEDS: METOPROLOL TARTRATE 25 MG TAB PO SCH ×2 (10:08→21:41)
[2017-01-11 10:11] LABS: Band Neutrophils % 5.5 %; Manual Review Performed; Myelocytes % 1.5 %; Nucleated Red Blood Cells 0 /100 WBC (0-0); Total Cells Counted 200
[2017-01-11 10:19] LABS: Dohle Bodies Present; Toxic Granulation Present; Toxic Vacuolation Present
[2017-01-11] MEDS: INSULIN LISPRO (humaLOG) 300 UNIT/3 ML VIAL SQ SCH ×4 (11:36→21:41)
[2017-01-11 11:41] LABS: Glucose,Whole Blood 95 mg/dL (75-99)
[2017-01-11] MEDS: FILGRASTIM-SNDZ 480 MCG/0.8 ML SYRINGE SQ SCH (12:23)
--- NOTE | 2017-01-11 13:08 | CDI ---
In responding to this query, please exercise your independent professional judgment. The [facility] Coding Staff and Clinical Documentation Specialists appreciate your assistance in clarifying documentation, maintaining compliance with coding guidelines, accurately documenting patients condition and capturing severity of illness. The fact that a question is asked does not imply that any particular answer is desired or expected. Communication forms are a method of clarifying documentation and are not made part of the Legal Health Record. Thank you in advance for your clarification. Last Revision, July 2015 David Rizo [address] [facility] [place] [place] [address] Documentation Clarification Form Date: 01/10/2017 11:37:00 AM From: Osvaldo Huber, RN, BSN, CDI Admit Date: 01/09/2017 2:12:00 AM Patient Name: Anna Denton Visit Number: [id number] Dr. Matthew Arreaga: The following has been documented in the nursing progress notes and dietary notes: stage II pressure wound to coccyx. History/Risk Factors: 61 yo female with a history of obesity, DM II, COPD and breast/uterine CA, currently receiving chemo with last dose approx. 1 week ago. Family reports decreased oral intake, mental status changes/lethargy. Clinical Indicators: nurse notes 2x3 pressure injury w/erythema to coccyx on initial note dated 01/09/17. WBC: 0.3, Hgb: 6.6 BMI: 29.3 Treatment: Barrier cream, dietary consult, Glucerna w/meals Definition of Present on Admission (POA): A diagnosis present at the time the order for admission to inpatient status was written. For each diagnosis, documentation must be clear to determine if the condition was present at the time of the patients inpatient admission or developed during the hospital stay. Please clarify in progress notes and discharge summary as to whether the stage II pressure ulcer to the coccyx was: POA Not POA Unable to determine whether POA or not POA Please continue to document in your progress notes and discharge summary in order to capture severity of illness and risk of mortality. Include clinical findings that support your diagnosis. FYI: Press F11 to launch patient chart. BHARGAV
--- NOTE | 2017-01-11 13:29 | CDI ---
In responding to this query, please exercise your independent professional judgment. The [facility] Coding Staff and Clinical Documentation Specialists appreciate your assistance in clarifying documentation, maintaining compliance with coding guidelines, accurately documenting patients condition and capturing severity of illness. The fact that a question is asked does not imply that any particular answer is desired or expected. Communication forms are a method of clarifying documentation and are not made part of the Legal Health Record. Thank you in advance for your clarification. Last Revision, July 2015 David Rizo [address] [place] [address] Documentation Clarification Form Date: 01/11/2017 1:14:00 PM From: Osvaldo Huber, RN, BSN, CDI Admit Date: 01/09/2017 2:12:00 AM Patient Name: Anna Denton Visit Number: [id number] Dr. Matthew Arreaga: The following has been documented in your progress notes "acute renal failure, probably ATN including that from sepsis, slow to respond". Sepsis was not documented in the ED report or H&P. Per ID consult, "pt with febrile neutropenia likely source of sepsis could be PNA see on CT". History/Risk Factors: 61 yo female with a history of uterine and breast CA w/2 cycles of chemo- last cycle about 1 week ago. Clinical Indicators: WBC: 0.3, temp: 100.8 CT A/P: 0.6 cm area of pneumonitis along the major fissure in the RML at the lung base Treatment: Vancomycin, Cefepime, 1L fluid bolus, blood/urine cultures, IVF @ 125cc/hr, repeat blood cultures x2 Definition of Present on Admission (POA): A diagnosis present at the time the order for admission to inpatient status was written. For each diagnosis, documentation must be clear to determine if the condition was present at the time of the patients inpatient admission or developed during the hospital stay. Please clarify in progress notes and discharge summary as to whether sepsis was: -POA -NOT POA -CLINICALLY UNDETERMINED IF THE CONDITION WAS PRESENT AT THE TIME OF THE INPATIENT ORDER Please continue to document in your progress notes and discharge summary in order to capture severity of illness and risk of mortality. Include clinical findings that support your diagnosis. FYI: Press F11 to launch patient chart. MTDD
[2017-01-11] MEDS ORDERED: VANCOMYCIN 1,250 MG in SODIUM CHLORIDE 0.9% 250 ML IVPB SCH (14:00)
[2017-01-11 16:49] LABS: Glucose,Whole Blood 85 mg/dL (75-99)
--- NOTE | 2017-01-11 19:18 | P.PN ---
Subjective Principal diagnosis: febrile neutropenia, chemo induced pancytopenia Patient seen today in follow-up. She is sitting up at the bedside, states feeling better than yesterday. Patient has been up to the commode today, she did have some diarrhea. She ate fairly well today, her mouth feels better, no current complaints of nausea, shortness of breath or pain. Objective - Vital Signs Vital signs: Vital Signs Temp 97.9 F 01/11/17 15:33 Pulse 60 01/11/17 15:33 Resp 18 01/11/17 15:33 BP 149/68 01/11/17 15:33 Pulse Ox 96 01/11/17 15:33 Intake & Output 01/11/17 01/11/17 01/12/17 06:59 18:59 06:59 Intake Total 1165 910 Balance 1165 910 Weight 81.5 kg Intake: IV 925 600 Sodium Chloride 0.9% 1, 625 000 ml @ 125 mls/hr IV . Q8H [facility] Rx#:[id number] Sodium Chloride 0.9% 1, 300 600 000 ml @ 75 mls/hr IV . [id number] [facility] Rx#:[id number] Oral 240 Blood Product 310 Rc As-1 Unit 310 [id number] Other: Voiding Method Diaper Diaper Incontinent Incontinent # Voids 1 3 # Bowel Movements 4 - Constitutional General appearance: Present: cooperative, no acute distress, obese - EENT EENT Comment(s): mild oropharyngeal redness - Respiratory Respiratory: bilateral: CTA - Cardiovascular Heart sounds: normal: S1, S2 - Gastrointestinal General gastrointestinal: Present: normal bowel sounds, soft. Absent: absent bowel sounds, decreased bowel sounds, distended, hepatomegaly, hyperactive bowel sounds, organomegaly, rigid, scaphoid, splenomegaly, tenderness, umbilical hernia, ventral hernia - Integumentary Integumentary: Present: pale - Neurologic Neurologic: Present: CNII-XII intact - Musculoskeletal Musculoskeletal: Present: generalized weakness, strength equal bilaterally - Psychiatric Psychiatric: Present: A&O x's 3, appropriate affect, intact judgment & insight - Labs CBC & Chem 7: 01/11/17 07:40 01/11/17 07:40 Labs: Abnormal Lab Results - Last 24 Hours (Table) 01/11/17 01/11/17 Range/Units 07:40 07:40 WBC 2.9 L (3.8-10.6) k/uL RBC 2.16 L (3.80-5.40) m/uL Hgb 6.7 L* (11.4-16.0) gm/dL Hct 20.3 L (34.0-46.0) % Plt Count 77 L (150-450) k/uL Lymphocytes # (Manual) 0.7 L (1.0-4.8) k/uL Chloride 111 H (98-107) mmol/L Carbon Dioxide 20 L (22-30) mmol/L BUN 24 H (7-17) mg/dL Creatinine 1.75 H (0.52-1.04) mg/dL Glucose 71 L (74-99) mg/dL Calcium 7.6 L (8.4-10.2) mg/dL Microbiology - Last 24 Hours (Table) 01/09/17 16:25 Urine Culture - Final Urine,Clean Catch 01/09/17 20:42 Blood Culture - Preliminary Blood No Growth after 24 hours 01/09/17 20:30 Blood Culture - Preliminary Blood No Growth after 24 hours Assessment and Plan (1) Metabolic encephalopathy Narrative/Plan: significantly improved with administration of antibiotics, fluids and growth factors. Status: Acute (2) Neutropenic sepsis Narrative/Plan: Patient continues on G-CSF at this time, white count is significantly improved, patient has remained afebrile for greater than 24 hours. Status: Acute (3) Mucositis Narrative/Plan: nearly resolved, continue current supportive medications Status: Acute (4) Pancytopenia Narrative/Plan: pancytopenia secondary to chemotherapy. Patient will be given 1 unit of packed red blood cells for a hemoglobin of 6.7 today, platelet count is stable, white blood cell count is improving, absolute neutrophil count is 1500. Status: Acute
[2017-01-11 20:13] LABS: Glucose,Whole Blood 82 mg/dL (75-99)
--- NOTE | 2017-01-11 20:27 | PN ---
DATE OF SERVICE: 01/11/2017 REASON FOR FOLLOWUP: Febrile neutropenia and possible pneumonia. INTERVAL HISTORY: The patient is afebrile. She is currently breathing comfortably with occasional cough. No chest pain. No abdominal pain. No nausea, vomiting or any diarrhea. On examination, blood pressure is 152/63 with a pulse of 50, temperature 98. She is 96% on room air. General description is an elderly female lying in bed in no distress. RESPIRATORY SYSTEM: Unlabored breathing. Clear to auscultation anteriorly. HEART: S1, S2. Regular rate and rhythm. ABDOMEN: Soft. No tenderness. LAB: Hemoglobin is 6.7, white count 2.9. BUN of 24, creatinine of 0.75. Blood cultures negative. So far, sputum not collected. DIAGNOSTIC IMPRESSION AND PLAN: Patient with febrile neutropenia, sepsis with concern for possible pneumonia. Currently on Zosyn and vancomycin. As no gram-positive has been grown, will go ahead and discontinue the vancomycin, give the patient the Zosyn. Will try to obtain sputum. Continue supportive care.
[2017-01-11] MEDS: ATORVASTATIN 40 MG TAB PO SCH (21:41)
[2017-01-12] MEDS: BENZOCAINE/MENTHOL LOZENG 1 EACH LOZENGE MUCOUS MEM SCH ×5 (05:20→20:39)
[2017-01-12] MEDS: SODIUM CHLORIDE 0.9% 1,000 ML IV SCH ×2 (05:27→21:15)
[2017-01-12 07:32] LABS: Glucose,Whole Blood 71 mg/dL (75-99)
--- NOTE | 2017-01-12 07:52 | PN ---
DATE OF SERVICE: 01/11/2017 PRESENTING COMPLAINT: Neutropenic fever. INTERVAL HISTORY: This patient being treated with chemotherapy for breast cancer and uterine cancer, admitted with metabolic encephalopathy and neutropenic fever, being treated for pneumonia. Patient is eating better, but tired. Getting a unit of blood for dropped hemoglobin. Patient also got pancytopenia from the chemo. Review of systems done for constitutional, cardiovascular, GI, pulmonary; relevant findings as above. Current medications are reviewed that include IV cefepime, vancomycin was discontinued. On examination, temperature 97.9, pulse 60, respirations 18, blood pressure 149/68, pulse ox 96% on room air. GENERAL APPEARANCE: ( ) lying in bed, appears better. EYES: Pupils equal. Conjunctivae pale. NECK: JVD not raised. Mass not palpable. RESPIRATORY: Effort normal. LUNGS: Decreased breath sounds. CARDIOVASCULAR: First and second sounds normal. No edema. ABDOMEN: Soft, nontender. Liver and spleen not palpable. PSYCHIATRY: Alert and oriented x3. Mood and affect normal. INVESTIGATIONS: White count 2.9, hemoglobin 6.7, platelets 77. Potassium 3.8. BUN 24, creatinine 1.75. ASSESSMENT: 1. Neutropenic fever felt to be from pneumonia causing sepsis, present on admission. 2. Acute metabolic encephalopathy from underlying sepsis, improving. 3. Breast cancer, uterine cancer/adenocarcinoma, status post chemotherapy. 4. Chronic obstructive pulmonary disease in an ex-smoker. 5. Essential hypertension. 6. Coronary artery disease with history of coronary artery bypass. 7. Chronic congestive heart failure from systolic dysfunction; ejection fraction 35% to 40%, from ischemic cardiomyopathy. 8. Pancytopenia from chemotherapy, getting filgrastim. 9. Paroxysmal atrial fibrillation. 10. Acute renal failure, probably acute tubular necrosis including that from sepsis, slow to respond, present on admission. 11. Stage II sacral decubitus ulcer, present on admission. 12. Antibiotic associated diarrhea, negative for Clostridium difficile. PLAN: Patient has been ( ) a unit of blood. Continue with antibiotics. Patient encouraged to be out of bed. Patient had some diarrhea, negative for C. difficile.
[2017-01-12 08:05] LABS: CHCM 35.1; HCT 24.7 % (34.0-46.0); HDW 3.76; Immature Gran Flag Marked; MCH 31.7 pg (25.0-35.0); MCHC 35.7 g/dL (31.0-37.0); Mean Platelet Volume 9.7; Poikilocytosis Slight; RBC 2.78 m/uL (3.80-5.40); RDW 15.1 % (11.5-15.5); WBC 16.8 k/uL (3.8-10.6); WBC (Perox) 17.42
[2017-01-12 08:09] LABS: HGB 8.8 gm/dL (11.4-16.0)
[2017-01-12 08:10] LABS: MCV 88.7 fL (80.0-100.0)
[2017-01-12] MEDS: INSULIN LISPRO (humaLOG) 300 UNIT/3 ML VIAL SQ SCH ×4 (08:18→22:06)
[2017-01-12] MEDS: MAG HYDROX/AL HYDROX/SIMETH 30 ML, diphenhydrAMINE ELIXIR 75 MG, LIDOCAINE VISCOUS 30 ML PO SCH ×12 (08:28→22:17)
[2017-01-12] MEDS: ASPIRIN 81 MG CHEW PO SCH (08:28)
[2017-01-12] MEDS: METOPROLOL TARTRATE 25 MG TAB PO SCH ×2 (08:28→20:39)
[2017-01-12] MEDS: CLOPIDOGREL 75 MG TAB PO SCH (08:28)
[2017-01-12] MEDS: CEFEPIME 2 GM in SODIUM CHLORIDE 0.9% 50 ML IVPB SCH (08:28)
[2017-01-12] MEDS: PANTOPRAZOLE 40 MG TABLET PO SCH (08:28)
[2017-01-12] MEDS: AMIODARONE 200 MG TAB PO SCH (08:28)
[2017-01-12 09:04] LABS: Calcium 7.9 mg/dL (8.4-10.2); Potassium 4.2 mmol/L (3.5-5.1)
[2017-01-12] MEDS: FILGRASTIM-SNDZ 480 MCG/0.8 ML SYRINGE SQ SCH (09:25)
[2017-01-12 10:16] LABS: Add Differential Manual Differential
[2017-01-12 10:17] LABS: Manual Review Performed
[2017-01-12 10:26] LABS: Nucleated Red Blood Cells 0 /100 WBC (0-0); Total Cells Counted 200
[2017-01-12 10:30] LABS: Toxic Vacuolation Present
[2017-01-12 11:45] LABS: Glucose,Whole Blood 84 mg/dL (75-99)
[2017-01-12 17:11] LABS: Glucose,Whole Blood 88 mg/dL (75-99)
[2017-01-12] MEDS ORDERED: LORazepam 2 MG/ML SYRINGE IV PRN (17:48)
--- NOTE | 2017-01-12 18:02 | PN ---
DATE OF SERVICE: 01/12/2017 REASON FOR FOLLOWUP: Febrile neutropenia and possible pneumonia. INTERVAL HISTORY: The patient is afebrile. She is currently feeling better, breathing comfortably. The patient denies significant chest pain. Occasional cough. No abdominal pain. No nausea, vomiting or any diarrhea. On examination, blood pressure is 156/70 with a pulse of 58, temperature 97.9. She is 95% on room air. General description is a middle-aged female up in the bed in no distress. RESPIRATORY SYSTEM: Unlabored breathing. Some decreased breath sounds at the base. No wheeze. HEART: S1, S2. Regular rate and rhythm. ABDOMEN: Soft. No tenderness. LABS: BUN of 23 with a creatinine 2.12. Hemoglobin is 8.2, white count 16.8. Blood culture is negative. Sputum not collected. DIAGNOSTIC IMPRESSION AND PLAN: Patient admitted to hospital with sepsis and febrile neutropenia with concern for possible pneumonia seen on the CT. Patient responded to the Zosyn. If the patient continues to improve and the culture is negative for any resistant pathogen, she will be able to finish therapy with oral Avelox for another 7 to 10 days. Continue supportive care.
[2017-01-12] MEDS ORDERED: ONDANSETRON 4 MG/2 ML VIAL IVP PRN (19:09)
--- NOTE | 2017-01-12 19:35 | P.PN ---
Subjective Principal diagnosis: Sepsis with febrile neutropenia The patient looks, and feels much better. She states that the throat pain is resolved and she is able to swallow well. Appetite is improved. She feels much stronger. However she has not been out of bed on her own Objective - Vital Signs Vital signs: Vital Signs Temp 97.9 F 01/12/17 07:00 Pulse 60 01/12/17 16:00 Resp 16 01/12/17 16:00 BP 156/70 01/12/17 07:00 Pulse Ox 95 01/12/17 07:00 Intake & Output 01/12/17 01/12/17 01/13/17 06:59 18:59 06:59 Intake Total 775 Balance 775 Weight 82.5 kg Intake: IV 675 Sodium Chloride 0.9% 1, 675 000 ml @ 75 mls/hr IV . [id number] [facility] Rx#:[id number] Oral 100 Other: Voiding Method Diaper Diaper Incontinent Incontinent # Voids 1 2 # Bowel Movements 0 - Constitutional General appearance: Present: no acute distress - EENT Eyes: Present: EOMI, PERRLA ENT: Present: hearing grossly normal, normal oropharynx - Respiratory Respiratory: bilateral: CTA - Cardiovascular Rhythm: regular Heart sounds: normal: S1, S2 - Gastrointestinal General gastrointestinal: Present: normal bowel sounds, soft - Integumentary Integumentary: Present: normal - Neurologic Neurologic: Present: CNII-XII intact - Musculoskeletal Musculoskeletal: Present: strength equal bilaterally - Psychiatric Psychiatric: Present: A&O x's 3, appropriate affect - Labs CBC & Chem 7: 01/12/17 07:38 01/12/17 07:38 Labs: Abnormal Lab Results - Last 24 Hours (Table) 01/12/17 01/12/17 01/12/17 Range/Units 07:29 07:38 07:38 WBC 16.8 H (3.8-10.6) k/uL RBC 2.78 L (3.80-5.40) m/uL Hgb 8.8 L D (11.4-16.0) gm/dL Hct 24.7 L (34.0-46.0) % Plt Count 96 L (150-450) k/uL Neutrophils # (Manual) 13.4 H (1.3-7.7) k/uL Monocytes # (Manual) 1.3 H (0-1.0) k/uL Chloride 115 H (98-107) mmol/L Carbon Dioxide 19 L (22-30) mmol/L BUN 23 H (7-17) mg/dL Creatinine 2.12 H (0.52-1.04) mg/dL Glucose 66 L (74-99) mg/dL POC Glucose (mg/dL) 71 L (75-99) mg/dL Calcium 7.9 L (8.4-10.2) mg/dL Microbiology - Last 24 Hours (Table) 01/09/17 20:42 Blood Culture - Preliminary Blood No Growth after 48 hours 01/09/17 20:30 Blood Culture - Preliminary Blood No Growth after 48 hours Assessment and Plan (1) Neutropenic sepsis Narrative/Plan: Neutropenia has resolved, with a white count of greater than 10,000. Filgrastim will be stopped. The cultures have remained negative. Continue IV antibiotics while in the hospital. On discharge, the patient then was switched over to broad spectrum oral antibiotics such as levofloxacin. Symptomatically she is much improved. Standpoint, she can be discharged in the next 24 hours or so. Status: Acute (2) Pancytopenia Narrative/Plan: The hemoglobin is in a safe range. Patrick also improved. No supplementation required. Further improvement is expected as the patient gets further from her last chemotherapy Status: Acute (3) Mucositis Narrative/Plan: Resolved, with recovery of white count Status: Acute Plan: Physical therapy, to improve ambulation
[2017-01-12] MEDS: ATORVASTATIN 40 MG TAB PO SCH (20:39)
[2017-01-12 21:06] LABS: Glucose,Whole Blood 80 mg/dL (75-99)
[2017-01-13] MEDS: BENZOCAINE/MENTHOL LOZENG 1 EACH LOZENGE MUCOUS MEM SCH ×5 (03:52→15:45)
[2017-01-13 07:47] LABS: Glucose,Whole Blood 83 mg/dL (75-99)
[2017-01-13 08:40] LABS: CH 30.3; CHCM 33.5; HCT 24.7 % (34.0-46.0); HDW 3.74; HGB 8.4 gm/dL (11.4-16.0); Immature Gran Flag Moderate; MCV 91.3 fL (80.0-100.0); Mean Platelet Volume 8.9; Poikilocytosis Slight; RDW 15.5 % (11.5-15.5); WBC (Perox) 31.68
[2017-01-13 08:42] LABS: Calcium 7.7 mg/dL (8.4-10.2); Potassium 3.7 mmol/L (3.5-5.1)
[2017-01-13 08:43] LABS: WBC 29.8 k/uL (3.8-10.6)
[2017-01-13 08:49] VITALS: BP 152/72; PULSE 59; RESP 20; TEMP 97.9
[2017-01-13] MEDS: PANTOPRAZOLE 40 MG TABLET PO SCH (08:52)
[2017-01-13] MEDS: MAG HYDROX/AL HYDROX/SIMETH 30 ML, diphenhydrAMINE ELIXIR 75 MG, LIDOCAINE VISCOUS 30 ML PO SCH ×6 (08:52→13:09)
[2017-01-13] MEDS: ASPIRIN 81 MG CHEW PO SCH (08:52)
[2017-01-13] MEDS: METOPROLOL TARTRATE 25 MG TAB PO SCH (08:52)
[2017-01-13] MEDS: CLOPIDOGREL 75 MG TAB PO SCH (08:52)
[2017-01-13] MEDS: AMIODARONE 200 MG TAB PO SCH (08:52)
[2017-01-13] MEDS: CEFEPIME 2 GM in SODIUM CHLORIDE 0.9% 50 ML IVPB SCH (08:53)
[2017-01-13] MEDS: INSULIN LISPRO (humaLOG) 300 UNIT/3 ML VIAL SQ SCH ×2 (08:53→11:51)
--- NOTE | 2017-01-13 08:59 | PN ---
DATE OF SERVICE: 01/12/2017 PRESENTING COMPLAINT: Neutropenic fever. INTERVAL HISTORY: This patient being treated with ( ) breast and uterine cancer, developed metabolic encephalopathy and neutropenic fever; treated for pneumonia. Continued to do much better. Diet is improving. Actually walked to the bathroom. The patient did get some blood transfusion and has pancytopenia, on chemotherapy. Review of systems done for constitutional, cardiovascular, GI, pulmonary; relevant findings as above. Diarrhea is much improved. Current medications are reviewed and include IV cefepime. On examination, temperature 96.9, pulse 72, respirations 20, blood pressure 150/70, pulse ox 97% on room air. GENERAL APPEARANCE: Sitting up, more awake. EYES: Pupils equal. Conjunctivae pale. NECK: JVD not raised. Mass not palpable. RESPIRATORY: Effort normal. LUNGS: Decreased breath sounds. CARDIOVASCULAR: First and second sounds normal. No edema. ABDOMEN: Soft, nontender. Liver and spleen not palpable. PSYCHIATRY: Alert and oriented x3. Mood and affect normal. INVESTIGATIONS: White count 16.8, hemoglobin 8.8, platelets 96. Potassium 4.2. BUN 23, creatinine 2.12. Clostridium difficile negative. Blood cultures are negative to now. ASSESSMENT: 1. Neutropenic fever felt to be pneumonia causing sepsis present on admission with clinical improvement. 2. Acute metabolic encephalopathy from underlying sepsis, improved. 3. Breast cancer, uterine cancer/adenocarcinoma, status post chemotherapy. 4. Chronic obstructive pulmonary disease in ex-smoker. 5. Essential hypertension. 6. Coronary artery disease with history of coronary artery bypass. 7. Chronic congestive heart failure from systolic dysfunction; ejection fraction 35 to 40%, ischemic cardiomyopathy. 8. Pancytopenia from chemotherapy getting filgrastim, now improved. 9. Proximal atrial fibrillation. 10. Acute renal failure, probably acute tubular necrosis including that from sepsis, slow to respond, present on admission. 11. Stage II sacral decubitus ulcer, present on admission. 12. Antibiotic associated diarrhea negative for Clostridium difficile. PLAN: Patient significantly improved, has been up to the bathroom, looking at possible discharge. Will discontinue patient's IV fluids.
[2017-01-13 09:20] LABS: Add Differential Manual Differential
[2017-01-13 09:23] LABS: Band Neutrophils % 3.5 %; Nucleated Red Blood Cells 0 /100 WBC (0-0); Total Cells Counted 200
[2017-01-13 09:24] LABS: Large Platelets Present; Manual Review Performed
[2017-01-13 11:41] LABS: Glucose,Whole Blood 87 mg/dL (75-99)
--- NOTE | 2017-01-13 19:10 | PN ---
DATE OF SERVICE: 01/13/2017 REASON FOR FOLLOWUP: Febrile neutropenia and pneumonia. INTERVAL HISTORY: The patient is afebrile. This patient is feeling better. Her breathing has improved. No cough. No nausea, no vomiting or any diarrhea. On examination, her blood pressure is 132/72 with a pulse of 59, temperature 97.9. She is 96% on room air. General description is a middle-age female up in the bed in no distress. RESPIRATORY SYSTEM: Unlabored breathing. Clear to auscultation anteriorly. HEART: S1, S2. Regular rate and rhythm. ABDOMEN: Soft. No tenderness. LABS: Hemoglobin 8.4, white count 9.2. BUN of 22, creatinine 2.8. DIAGNOSTIC IMPRESSION AND PLAN: Patient admitted to hospital with sepsis and febrile neutropenia. This is likely pneumonia. She did show overall improvement on cefepime. No resistant organism has been grown. She will be able to be discharged with oral Augmentin or Avelox. This was discussed with the attending physician working on discharge. Continue supportive care.
--- NOTE | 2017-01-16 17:43 | DS ---
DATE OF ADMISSION: 01/09/2017 DATE OF DISCHARGE: 01/13/2017 FINAL DIAGNOSIS(ES): 1. Neutropenic fever felt to be from pneumonia causing sepsis present on admission. 2. Acute metabolic encephalopathy from underlying sepsis, present on admission. 3. Breast cancer, uterine cancer/adenocarcinoma status post chemotherapy. 4. Chronic obstructive pulmonary disease in an ex-smoker. 5. Essential hypertension. 6. Coronary artery disease, history of coronary artery bypass. 7. Chronic congestive heart failure from systolic dysfunction; ejection fraction 35% to 40%, ischemic cardiomyopathy. 8. Pancytopenia from chemotherapy getting ( ) now improved. 9. Paroxysmal atrial fibrillation. 10. Acute renal failure, probably acute tubular necrosis including that from sepsis, slow to respond present on admission. 11. Stage II sacral decubitus present at admission. 12. Antibiotic associated diarrhea negative for C. difficile. HOSPITAL COURSE: This patient is getting chemotherapy, presented with fever, altered mental status felt to be pneumonia per ID. Doing much better at this time. Eating. Actually walking better. Also had diarrhea felt to be antibiotic associated, ( ) was negative. Did also receive ( ) White count actually came up nicely down from 0.3 up to 29,000 actually which really is an overshoot. Patient is eating better, communicating at the time of discharge. On exam, lungs decreased breath sounds. CARDIOVASCULAR: First and second sounds normal. The patient able to communicate. The patient is walking better. Patient blood culture and urine culture all negative. CONSULTATIONS: Dr. Stephen from infection disease, Dr. Cervantes from oncology. DISCHARGE MEDICATIONS: 1. Amiodarone 200 mg p.o. daily. 2. Plavix 75 mg a day. 3. Lopressor 25 mg p.o. b.i.d. 4. Lipitor 40 mg p.o. q.h.s. 5. Aspirin 81 mg daily. 6. Vitamin D2, 50,000 units p.o. . 7. Magnesium oxide 400 mg p.o. daily. 8. Zofran 8 mg p.o. q.8 p.r.n. 9. Augmentin 500 mg 1 tablet p.o. q.12, 14 tablets. 10. Pepcid 20 mg p.o. b.i.d. Follow up with Dr. Cervantes on 01/24/2017. Follow up with Dr. Paredes on 01/20/2017. BMP and CBC in 3 days. DC planning more than 35 minutes.
[2017-01-18 17:00] LABS: Cryptosporidium parvum Not detected (Not detected); Isospora belli Not detected (Not detected); Microsporidium Not detected (Not detected); Routine Ova and Parasites Not detected
== END 2017-01-13 17:07 | disposition home health service (06) | DRG 871 ==
LOC: EC 23:27 → 5ONC 01-09 02:12
PROVIDERS: ADMIT Hospitalist; ATTEND Hospitalist
DX: A41.9 Sepsis, unspecified organism (principal); D61.810 Antineoplastic chemotherapy induced pancytopenia; N17.0 Acute kidney failure with tubular necrosis; G93.41 Metabolic encephalopathy; I11.0 Hypertensive heart disease with heart failure; K52.1 Toxic gastroenteritis and colitis; L89.152 Pressure ulcer of sacral region, stage 2; J18.9 Pneumonia, unspecified organism; I50.22 Chronic systolic (congestive) heart failure; J44.0 Chronic obstructive pulmonary disease with (acute) lower respiratory infection; D70.1 Agranulocytosis secondary to cancer chemotherapy; D70.3 Neutropenia due to infection; E86.0 Dehydration; C50.919 Malignant neoplasm of unspecified site of unspecified female breast; I48.0 Paroxysmal atrial fibrillation; C55 Malignant neoplasm of uterus, part unspecified; E11.9 Type 2 diabetes mellitus without complications; E78.5 Hyperlipidemia, unspecified; I25.10 Atherosclerotic heart disease of native coronary artery without angina pectoris; I25.2 Old myocardial infarction; I25.5 Ischemic cardiomyopathy; K12.30 Oral mucositis (ulcerative), unspecified; N20.0 Calculus of kidney; R50.81 Fever presenting with conditions classified elsewhere; T36.95XA Adverse effect of unspecified systemic antibiotic, initial encounter; T45.1X5A Adverse effect of antineoplastic and immunosuppressive drugs, initial encounter; Z79.02 Long term (current) use of antithrombotics/antiplatelets; Z79.82 Long term (current) use of aspirin; Z79.899 Other long term (current) drug therapy; Z82.49 Family history of ischemic heart disease and other diseases of the circulatory system; Z87.891 Personal history of nicotine dependence; Z95.1 Presence of aortocoronary bypass graft
CPT/HCPCS: 36415; 70450; 71010; 74176; 80048; 80053; 80202; 81001; 83036; 83605; 83735; 84100; 84484; 85025; 85610; 85730; 86850; 86900; 86901; 86920; 87040; 87086; 87177; 87207; 87209; 87324; 93005

== ENCOUNTER 2017-02-05 09:29 | Inpatient (IN) | payer OTHER ==
[2017-02-05] MEDS ORDERED: SODIUM CHLORIDE 0.9% 500 ML IV STA (09:35)
--- NOTE | 2017-02-05 09:39 | ED ---
General Adult HPI - General Stated complaint: Seizure Time Seen by Provider: 02/05/17 09:29 Source: RN notes reviewed - History of Present Illness Initial comments: This is a 61-year-old female presents emergency department with past medical history significant for breast cancer and uterine cancer per the patient. Patient states she gets chemotherapy. Patient states she had chemotherapy this past Monday. Patient states normally she feels good for the first day but then 3 or 4 days out she starts to get very weak. Patient states she was very weak this morning was unable to walk around so she called the ambulance. EMS states occasionally she has some shaking spells but is not typical of a seizure she has no post ictal state and she has muscle control and able to talk while having them. Patient denies headache patient denies any recent injury or trauma. Patient denies any chest pain difficulty breathing or shortness of breath per patient denies any recent fever chills or cough. Patient denies abdominal pain patient denies nausea vomiting or diarrhea. - Related Data Home Medications Medication Instructions Recorded Confirmed Atorvastatin [Lipitor] 40 mg PO HS 08/16/16 02/05/17 Ergocalciferol (Vitamin D2) 50,000 unit PO TH 01/09/17 02/05/17 [Vitamin D2] Magnesium Oxide [Mag-Ox] 400 mg PO DAILY 01/09/17 02/05/17 Ondansetron HCl [Zofran] 8 mg PO Q8H PRN 01/09/17 02/05/17 Gabapentin [Neurontin] 100 mg PO DAILY 02/05/17 02/05/17 HYDROcodone/APAP 5-325MG [[place] 1 tab PO Q6H PRN 02/05/17 02/05/17 5-325] Previous Rx's Medication Instructions Recorded Amiodarone [Cordarone] 200 mg PO DAILY #30 tab 07/04/16 Clopidogrel [Plavix] 75 mg PO DAILY #30 tab 07/04/16 Metoprolol Tartrate [Lopressor] 25 mg PO BID #60 tab 07/04/16 Aspirin 81 mg PO DAILY #30 chew 08/20/16 Famotidine [Pepcid] 20 mg PO BID #60 tablet 01/13/17 Allergies Allergy/AdvReac Type Severity Reaction Status Date / Time No Known Allergies Allergy Verified 02/05/17 10:16 Review of Systems ROS Statement: Those systems with pertinent positive or pertinent negative responses have been documented in the HPI. ROS Other: All systems not noted in ROS Statement are negative. Past Medical History Past Medical History: COPD, Diabetes Mellitus, Hypertension, Myocardial Infarction (SD) Additional Past Medical History / Comment(s): Obesity, coronary artery disease, hypertension, hyperlipidemia, diabetes mellitus, right internal carotid artery disease with less than 70% blockage, poor dental hygiene with multiple decayed teeth both in the upper and lower jaws, COPD with a baseline FEV1 of 62% of predicted, CHF with a preoperative ejection fraction of 35-40%, recently dx w/ rt breast cancer-no tx as of yet.PT HAD A PNE VACCINE NOT SURE OF DATE BUT PER OLD HX PT DUE IN 2017. Last Myocardial Infarction Date:: "I was young" unsure of year| History of Any Multi-Drug Resistant Organisms: None Reported Past Surgical History: Coronary Bypass/CABG, Heart Catheterization, Tubal Ligation Additional Past Surgical History / Comment(s): double cabg 06-28-16 Past Anesthesia/Blood Transfusion Reactions: No Reported Reaction Past Psychological History: No Psychological Hx Reported Smoking Status: Former smoker Past Alcohol Use History: None Reported Additional Past Alcohol Use History / Comment(s): smoked x 40 years, quit jun 20 2016. Past Drug Use History: None Reported - Past Family History Mother History Unknown: Yes Family Medical History: Diabetes Mellitus Additional Family Medical History / Comment(s): complications of DM at 57 Father History Unknown: Yes Family Medical History: Myocardial Infarction (SD) Additional Family Medical History / Comment(s): passed in 60's alcoholism General Exam - General Exam Comments Initial Comments: GENERAL: Patient is well-developed and well-nourished. Patient is nontoxic and well- hydrated and is in no acute distress. ENT: Neck is soft and supple. No significant lymphadenopathy is noted. Oropharynx is clear. Moist mucous membranes. Neck has full range of motion without eliciting any pain. EYES: The sclera were anicteric and conjunctiva were pink and moist. Extraocular movements were intact and pupils were equal round and reactive to light. Eyelids were unremarkable. PULMONARY: Unlabored respirations. Good breath sounds bilaterally. No audible rales rhonchi or wheezing was noted. CARDIOVASCULAR: There is a regular rate and rhythm without any murmurs gallops or rubs. ABDOMEN: Soft and nontender with normal bowel sounds. No palpable organomegaly was noted. There is no palpable pulsatile mass. SKIN: Skin is clear with no lesions or rashes and otherwise unremarkable. NEUROLOGIC: Patient is alert and oriented x3. Cranial nerves II through XII are grossly intact. Motor and sensory are also intact. Patient has generalized weakness but no specific localized weakness Normal speech, volume and content. Symmetrical smile. MUSCULOSKELETAL: Normal extremities with adequate strength and full range of motion. No lower extremity swelling or edema. No calf tenderness. LYMPHATICS: No significant lymphadenopathy is noted PSYCHIATRIC: Normal psychiatric evaluation. Normal interpersonal interactions appears functionally intact in deals appropriately with others. No signs of depression. No signs of anxiety. Course Vital Signs 02/05/17 02/05/17 09:30 10:45 Temperature 97.1 F L Pulse Rate 62 60 Respiratory 16 16 Rate Blood Pressure 144/63 113/55 O2 Sat by Pulse 100 100 Oximetry Medical Decision Making - Medical Decision Making EKG shows normal sinus rhythm at 67 bpm WI interval is 146 QRS is 96 QT interval 420 QTC is 443. Patient's EKG shows no acute changes from the previous EKG. Chest x-ray shows no acute abnormality Family stated she was acting at her neurologic baseline but she was much more tired over the last couple of days and she has fallen twice without injury. - Lab Data Result diagrams: 02/05/17 10:15 02/05/17 10:15 Lab Results 02/05/17 02/05/17 02/05/17 Range/Units 10:15 10:15 10:15 WBC 2.7 L (3.8-10.6) k/uL RBC 2.92 L (3.80-5.40) m/uL Hgb 9.6 L (11.4-16.0) gm/dL Hct 27.1 L (34.0-46.0) % MCV 92.9 (80.0-100.0) fL MCH 33.0 (25.0-35.0) pg MCHC 35.5 (31.0-37.0) g/dL RDW 17.1 H (11.5-15.5) % Plt Count 99 L (150-450) k/uL Neutrophils % 55 % Lymphocytes % 30 % Monocytes % 5 % Eosinophils % 10 % Basophils % 0 % Neutrophils # 1.5 (1.3-7.7) k/uL Lymphocytes # 0.8 L (1.0-4.8) k/uL Monocytes # 0.1 (0-1.0) k/uL Eosinophils # 0.3 (0-0.7) k/uL Basophils # 0.0 (0-0.2) k/uL Anisocytosis Slight PT 10.7 (9.0-12.0) sec INR 1.1 (<1.1) APTT 19.2 L (22.0-30.0) sec Sodium 138 (137-145) mmol/L Potassium 4.4 (3.5-5.1) mmol/L Chloride 106 (98-107) mmol/L Carbon Dioxide 24 (22-30) mmol/L Anion Gap 8 mmol/L BUN 26 H (7-17) mg/dL Creatinine 1.39 H (0.52-1.04) mg/dL Est GFR (MDRD) Af Amer 47 (>60 ml/min/1.73 sqM) Est GFR (MDRD) Non-Af 38 (>60 ml/min/1.73 sqM) Glucose 93 (74-99) mg/dL Calcium 8.7 (8.4-10.2) mg/dL Magnesium 2.0 (1.6-2.3) mg/dL Total Bilirubin 1.0 (0.2-1.3) mg/dL AST 68 H (14-36) U/L ALT 58 H (9-52) U/L Alkaline Phosphatase 115 (38-126) U/L Total Creatine Kinase (30-135) U/L CK-MB (CK-2) (0.0-2.4) ng/mL CK-MB (CK-2) Rel Index Troponin I (0.000-0.034) ng/mL Total Protein 6.7 (6.3-8.2) g/dL Albumin 3.4 L (3.5-5.0) g/dL Urine Color Urine Appearance (Clear) Urine pH (5.0-8.0) Ur Specific [place] (1.001-1.035) Urine Protein (Negative) Urine Glucose (UA) (Negative) Urine Ketones (Negative) Urine Blood (Negative) Urine Nitrite (Negative) Urine Bilirubin (Negative) Urine Urobilinogen (<2.0) mg/dL Ur Leukocyte Esterase (Negative) Urine RBC (0-5) /hpf 02/05/17 02/05/17 Range/Units 10:15 11:00 WBC (3.8-10.6) k/uL RBC (3.80-5.40) m/uL Hgb (11.4-16.0) gm/dL Hct (34.0-46.0) % MCV (80.0-100.0) fL MCH (25.0-35.0) pg MCHC (31.0-37.0) g/dL RDW (11.5-15.5) % Plt Count (150-450) k/uL Neutrophils % % Lymphocytes % % Monocytes % % Eosinophils % % Basophils % % Neutrophils # (1.3-7.7) k/uL Lymphocytes # (1.0-4.8) k/uL Monocytes # (0-1.0) k/uL Eosinophils # (0-0.7) k/uL Basophils # (0-0.2) k/uL Anisocytosis PT (9.0-12.0) sec INR (<1.1) APTT (22.0-30.0) sec Sodium (137-145) mmol/L Potassium (3.5-5.1) mmol/L Chloride (98-107) mmol/L Carbon Dioxide (22-30) mmol/L Anion Gap mmol/L BUN (7-17) mg/dL Creatinine (0.52-1.04) mg/dL Est GFR (MDRD) Af Amer (>60 ml/min/1.73 sqM) Est GFR (MDRD) Non-Af (>60 ml/min/1.73 sqM) Glucose (74-99) mg/dL Calcium (8.4-10.2) mg/dL Magnesium (1.6-2.3) mg/dL Total Bilirubin (0.2-1.3) mg/dL AST (14-36) U/L ALT (9-52) U/L Alkaline Phosphatase (38-126) U/L Total Creatine Kinase 40 (30-135) U/L CK-MB (CK-2) 0.8 (0.0-2.4) ng/mL CK-MB (CK-2) Rel Index 2.0 Troponin I <0.012 (0.000-0.034) ng/mL Total Protein (6.3-8.2) g/dL Albumin (3.5-5.0) g/dL Urine Color Yellow Urine Appearance Cloudy H (Clear) Urine pH 5.0 (5.0-8.0) Ur Specific [place] 1.011 (1.001-1.035) Urine Protein Trace H (Negative) Urine Glucose (UA) Negative (Negative) Urine Ketones Negative (Negative) Urine Blood Trace H (Negative) Urine Nitrite Negative (Negative) Urine Bilirubin Negative (Negative) Urine Urobilinogen <2.0 (<2.0) mg/dL Ur Leukocyte Esterase Trace H (Negative) Urine RBC <1 (0-5) /hpf Disposition Clinical Impression: Generalized weakness Disposition: ADMITTED IP TO THIS HOSP Referrals: Osvaldo Paredes DO [Primary Care Provider] - 1-2 days Time of Disposition: 11:32
[2017-02-05 10:31] LABS: Anisocytosis Slight; Basophils % (A) 0 %; CH 31.2; CHCM 33.8; Eosinophils # (A) 0.3 k/uL (0-0.7); Eosinophils % (A) 10 %; HCT 27.1 % (34.0-46.0); HDW 3.15; HGB 9.6 gm/dL (11.4-16.0); Luc # (Auto) 0.03; Luc % (Auto) 1; Lymphocytes # (A) 0.8 k/uL (1.0-4.8); Lymphocytes % (A) 30 %; MCHC 35.5 g/dL (31.0-37.0); MCV 92.9 fL (80.0-100.0); Mean Platelet Volume 9.1; Monocytes # (A) 0.1 k/uL (0-1.0); Monocytes % (A) 5 %; Neutrophils # (A) 1.5 k/uL (1.3-7.7); Neutrophils % (A) 55 %; RBC 2.92 m/uL (3.80-5.40); RDW 17.1 % (11.5-15.5); WBC 2.7 k/uL (3.8-10.6)
[2017-02-05 10:33] LABS: Calcium 8.7 mg/dL (8.4-10.2); Potassium 4.4 mmol/L (3.5-5.1); Total Protein 6.7 g/dL (6.3-8.2)
[2017-02-05 10:47] LABS: INR 1.1 (<1.1); Prothrombin Time 10.7 sec (9.0-12.0)
[2017-02-05 10:50] LABS: Creatine Kinase 40 U/L (30-135)
[2017-02-05 11:03] LABS: Creatine Kinase MB 0.8 ng/mL (0.0-2.4); Troponin I <0.012 ng/mL (0.000-0.034)
[2017-02-05 11:15] LABS: Partial Thromboplastin Time 19.2 sec (22.0-30.0)
[2017-02-05 11:24] LABS: Appearance,Urine Cloudy (Clear); Bilirubin,Urine Negative (Negative); Glucose,Urine (UA) Negative (Negative); Ketones,Urine Negative (Negative); Leukocyte Esterase,Urine Trace (Negative); Nitrite,Urine Negative (Negative); Particle Count 12; Protein,Urine Trace (Negative); RBC,Urine <1 /hpf (0-5); Specific Gravity,Urine 1.011 (1.001-1.035); UA Billing (MACRO vs. MICRO) MICRO; Urobilinogen,Urine <2.0 mg/dL (<2.0)
[2017-02-05] MEDS ORDERED: SODIUM CHLORIDE 0.9% 1,000 ML IV ONE (11:32)
--- NOTE | 2017-02-05 11:37 | XR ---
EXAMINATION TYPE: XR chest 2V DATE OF EXAM: 02/05/2017 11:15 AM COMPARISON: 01/09/2017 HISTORY: Seizure and weakness TECHNIQUE: Frontal and lateral views of the chest are obtained. FINDINGS: Heart is enlarged. There is no heart failure. Lungs are clear. There are sternal wires. Th ere are chest leads. There are no hilar masses. Costophrenic angles are clear. Bony thorax appears in tact. IMPRESSION: Cardiomegaly. No active cardiopulmonary disease. No change.
[2017-02-05 20:54] LABS: Glucose,Whole Blood 89 mg/dL (75-99)
[2017-02-05] MEDS ORDERED: ONDANSETRON ODT 8 MG TAB.RAPDIS PO PRN (22:51)
[2017-02-05] MEDS ORDERED: HYDROcodone/APAP 5-325MG 1 EACH TAB PO PRN (22:51)
[2017-02-06] MEDS: ASPIRIN 81 MG CHEW PO SCH (07:17)
[2017-02-06] MEDS: MAGNESIUM OXIDE 400 MG TAB PO SCH (07:17)
[2017-02-06] MEDS: GABAPENTIN 100 MG CAP PO SCH (07:17)
[2017-02-06] MEDS: METOPROLOL TARTRATE 25 MG TAB PO SCH ×2 (07:17→22:09)
[2017-02-06] MEDS: CLOPIDOGREL 75 MG TAB PO SCH (07:17)
[2017-02-06] MEDS: AMIODARONE 200 MG TAB PO SCH (07:18)
[2017-02-06 07:20] LABS: Glucose,Whole Blood 95 mg/dL (75-99)
[2017-02-06] MEDS ORDERED: FAMOTIDINE 20 MG TAB PO SCH (09:00)
[2017-02-06 11:47] LABS: Glucose,Whole Blood 99 mg/dL (75-99)
[2017-02-06 16:53] LABS: Glucose,Whole Blood 99 mg/dL (75-99)
--- NOTE | 2017-02-06 17:23 | HP ---
DATE OF ADMISSION: 02/05/2017 PRESENTING COMPLAINT: Weak and tired. HISTORY OF PRESENTING COMPLAINT: This is a 61-year-old patient with a rather extensive medical history of Dr. Paredes. Patient diagnosed with breast cancer in June 2016 and uterine cancer 2 months ago. Patient is getting chemotherapy with Dr. Cervantes. The patient last chemotherapy was 5 days ago. Following the chemotherapy, patient became more weak and tired to the point she was feeling weak in the legs. Appetite has been down. Feeling a bit cold. Denies any diarrhea. No urinary symptoms. The patient's granddaughter is at the bedside. On the patient's last admission, patient did have a neutropenic fever from pneumonia causing sepsis to which she responded well. Bowels have been stable. REVIEW OF SYSTEMS: CONSTITUTIONAL: Tired. HEENT: Loss of hair. RESPIRATORY: Occasional wheezing. CARDIOVASCULAR: None. GASTROINTESTINAL: None. GENITOURINARY: None. MUSCULOSKELETAL: Some pain in the joints. Dermatological: None. HEMATOLOGICAL: None. LYMPHATICS: None. PSYCHIATRY: A bit anxious. NEUROLOGICAL: As above, but no focal. PAST MEDICAL HISTORY: History of COPD, diabetes mellitus type 2, hypertension, coronary artery disease, congestive heart failure with ejection fraction of 35 to 40%. Right internal carotid artery blockage less than 30%, poor dental hygiene, breast and lung cancer. PAST SURGICAL HISTORY: Coronary artery bypass in 2016. Cardiac catheterization. Tubal ligation. History of paroxysmal atrial fibrillation. SOCIAL HISTORY: Patient smoked for 40 years; stopped May 2016. No alcohol. Lives with her daughter. FAMILY HISTORY: Diabetes. ALLERGIES: None. HOME MEDICATIONS: 1. Zofran 8 mg p.o. q.8 p.r.n. 2. Lopressor 25 p.o. b.i.d. 3. Magnesium oxide 400 mg p.o. daily. 4. [place] 5, 1 tablet p.o. q.6 p.r.n. 5. Neurontin 100 mg p.o. daily. 6. Pepcid 20 mg p.o. b.i.d. 7. Vitamin D2, 50,000 units p.o. . 8. Plavix 75 mg p.o. daily. 9. Lipitor 40 mg p.o. q.h.s. 10. Aspirin 81 mg p.o. daily. 11. Cordarone 200 mg p.o. daily. ALLERGIES: None. PHYSICAL EXAMINATION: Vital signs on presentation: Afebrile, pulse 62, respirations 16, blood pressure 144/53, pulse ox 100% on 2 liters. GENERAL APPEARANCE: Average built, BMI of 29, lying in bed. Tired -appearing. EYES: Pupils equal. Conjunctivae normal. HEENT: External appearance of nose and ears normal. Oral cavity normal. NECK: JVD not raised. Mass not palpable. RESPIRATORY: Effort normal. LUNGS: Diminished breath sounds. CARDIOVASCULAR: First and second sounds normal. No edema. ABDOMEN: Soft, nontender. Liver and spleen not palpable. LYMPHATIC: No lymph nodes palpable in neck or axillae. PSYCHIATRY: Alert and oriented x3. Mood and affect slightly tired appearing. NEUROLOGICAL: Pupils equal. Cranial nerves grossly intact. Power and sensation decreased peripherally. NEUROLOGICAL: Patient able to lift both legs off the bed to 60 degrees. INVESTIGATIONS: White count 2.7, hemoglobin 9.6, platelets 99. Potassium 4.4. BUN 26, creatinine 1.39. The patient labs on 01/13 showed a white count of 8.4, platelets 110, BUN and creatinine are 22 and 1.80. Hepatitis screen was negative. ASSESSMENT: 1. Genital medical debility, likely from chemotherapy. The patient does not have specific lower extremity weakness, part of generalized weakness as the patient seems to have good power, unable to lift both legs off the bed. 2. Breast cancer/uterine cancer/adenocarcinoma, status post chemotherapy. 3. Chronic obstructive pulmonary disease in an ex-smoker. 4. Essential hypertension. Coronary artery disease with prior history of coronary artery bypass. 5. Ischemic cardiomyopathy; ejection fraction 35% to 40%, underlying coronary artery disease. 6. Pancytopenia on chemotherapy. 7. Paroxysmal atrial fibrillation. 8. Stage II sacral decubitus ulcer present on admission. PLAN: Consultation with Dr. Cervantes was done. Home medications are reviewed. Will hold off any on Lovenox because of low platelets, we will give SCD boots in place. ( ) the patient to be out of bed. Give IV fluids. Encourage oral intake of food. No obvious evidence of infection. Copy to Dr. Paredes.
--- NOTE | 2017-02-06 19:45 | P.CONS ---
History of Present Illness - Reason for Consult Consult date: 02/06/17 Severe weakness. Breast and endometrial cancer on chemotherapy - History of Present Illness The patient is a 61-year-old lady, with a very complicated oncologic history. She had not had any medical follow-up for several years, when she presented in 06/10 with chest pain. She was found to have a UT, and had CABG. During the surgery, she was found to have a mass in the middle, inner portion of the left breast that appeared to be hard and fixed. She was seen by Dr. Martinez, with biopsy confirming hormone receptor positive, HER-2/jack negative breast cancer. The patient had the locally advanced disease, with invasion of the skin and possible fixation to the chest wall. She was seen in the office, and had a PET scan. The PET scan showed uptake in the pelvic lymph nodes, as well as in the uterus. It was felt that the patient likely had a second primary in the uterus, with spread to the lymph nodes. She was placed on anastrozole, and then referred to [facility]. She ultimately had a uterine biopsy in 10/11, that was positive for uterine adenocarcinoma. The patient was then referred to [facility] oncology at [facility]. On review of the case, they felt that the patient should have preop chemotherapy, followed by attempt at resection of both cancers. Restaging did not show any evidence of progressive disease. Anastrozole was stopped, and the patient was started on carboplatin and Taxol. She is status post 3 cycles. She was admitted to the hospital after cycle 2, because of severe cytopenias and weakness. She did recover with supportive treatment. Cycle 3 was delayed and dose reduced. The patient received chemotherapy about a week ago. She states that she felt reasonably well for the first 3-4 days. Subsequently she developed significant weakness which was progressive. On the day of admission, the patient was apparently so weak that she fell out of her wheelchair per her family. They also reported a couple of episodes of generalized shaking. According to the EMS, during these episodes the patient was awake and alert and her presentation was not typical of a seizure. The patient's daughter however stated that at least during one of the episodes she appeared to be "out of it", though she did not lose consciousness. She was therefore brought into the emergency room, and admitted for further management. Review of Systems Constitutional: Reports fatigue, Reports poor appetite, Reports weakness Eyes: denies blurred vision, denies pain Ears: deny: decreased hearing, ear discharge, earache, tinnitus Ears, nose, mouth and throat: Denies headache, Denies sore throat Breasts: Reports as per HPI Cardiovascular: Reports dyspnea on exertion Respiratory: Reports dyspnea Gastrointestinal: Denies abdominal pain, Denies diarrhea, Denies nausea, Denies vomiting Genitourinary: Denies dysuria, Denies hematuria Musculoskeletal: Reports frequent falls, Reports muscle weakness Integumentary: Denies pruritus, Denies rash Neurological: Reports change in mentation (According to family), Reports tremors , Reports weakness Psychiatric: Denies anxiety, Denies depression Endocrine: Reports fatigue, Reports weight change Hematologic/Lymphatic: Reports as per HPI Past Medical History Past Medical History: COPD, Diabetes Mellitus, Hypertension, Myocardial Infarction ([place]) Additional Past Medical History / Comment(s): Obesity, coronary artery disease, hypertension, hyperlipidemia, diabetes mellitus, right internal carotid artery disease with less than 70% blockage, poor dental hygiene with multiple decayed teeth both in the upper and lower jaws, COPD with a baseline FEV1 of 62% of predicted, CHF with a preoperative ejection fraction of 35-40%, recently dx w/ rt breast cancer-no tx as of yet.PT HAD A PNE VACCINE NOT SURE OF DATE BUT PER OLD HX PT DUE IN 2017. Last Myocardial Infarction Date:: "I was young" unsure of year| History of Any Multi-Drug Resistant Organisms: None Reported Past Surgical History: Coronary Bypass/CABG, Heart Catheterization, Tubal Ligation Additional Past Surgical History / Comment(s): double cabg 06-28-16 Past Anesthesia/Blood Transfusion Reactions: No Reported Reaction Past Psychological History: No Psychological Hx Reported Smoking Status: Former smoker Past Alcohol Use History: None Reported Additional Past Alcohol Use History / Comment(s): smoked x 40 years, quit jun 20 2016. Past Drug Use History: None Reported - Past Family History Mother History Unknown: Yes Family Medical History: Diabetes Mellitus Additional Family Medical History / Comment(s): complications of DM at 57 Father History Unknown: Yes Family Medical History: Myocardial Infarction ([place]) Additional Family Medical History / Comment(s): passed in 60's alcoholism Medications and Allergies Home Medications Medication Instructions Recorded Confirmed Type Atorvastatin [Lipitor] 40 mg PO HS 08/16/16 02/05/17 History Ergocalciferol (Vitamin D2) 50,000 unit PO TH 01/09/17 02/05/17 History [Vitamin D2] Magnesium Oxide [Mag-Ox] 400 mg PO DAILY 01/09/17 02/05/17 History Ondansetron HCl [Zofran] 8 mg PO Q8H PRN 01/09/17 02/05/17 History Gabapentin [Neurontin] 100 mg PO DAILY 02/05/17 02/05/17 History HYDROcodone/APAP 5-325MG [[place] 1 tab PO Q6H PRN 02/05/17 02/05/17 History 5-325] Allergies Allergy/AdvReac Type Severity Reaction Status Date / Time No Known Allergies Allergy Verified 02/05/17 10:16 Physical Exam Vitals: Vital Signs Temp Pulse Resp BP BP Pulse Ox 02/06/17 15:49 65 16 02/06/17 15:00 97.7 F 57 L 18 84/43 121/61 100 02/06/17 08:00 65 16 02/06/17 07:00 97.8 F 65 16 118/57 99 02/06/17 00:00 62 16 02/05/17 20:35 97.5 F L 62 16 124/65 99 Intake and Output 02/06/17 02/06/17 02/06/17 06:59 14:59 22:59 Intake Total 800 Balance 800 Intake: Intake, IV Titration 800 Amount Sodium Chloride 0.9% 1, 800 000 ml @ 100 mls/hr IV . Q10H ONE Rx#:[id number] Other: # Voids 2 4 4 Weight 77.111 kg 77.111 kg Patient Weight 02/07/17 06:59 Weight 77.111 kg - Constitutional General appearance: no acute distress - EENT Eyes: EOMI, PERRLA ENT: hearing grossly normal, normal oropharynx - Neck Neck: no lymphadenopathy Thyroid: bilateral: normal size - Respiratory Respiratory: bilateral: CTA - Cardiovascular Rhythm: regular Heart sounds: normal: S1, S2 - Gastrointestinal General gastrointestinal: normal bowel sounds, soft - Integumentary Integumentary: normal - Neurologic Neurologic: CNII-XII intact - Musculoskeletal Musculoskeletal: generalized weakness, strength equal bilaterally - Psychiatric Psychiatric: A&O x's 3, appropriate affect Results CBC & Chem 7: 02/05/17 10:15 02/05/17 10:15 Chest x-ray: report reviewed Assessment and Plan (1) Generalized weakness Narrative/Plan: This most likely appears to be chemotherapy effect. The patient had more severe symptoms, including cytopenias with her previous cycle. With dose reduction , her cytopenias have not been anywhere as severe. She was actually undergoing physical therapy at home, before weakness became too severe. It was discussed with the internal medicine service. At this time recommend continued supportive care with hydration. Physical therapy will be consulted again. There is no evidence of infection, by labs, oral clinical evaluation otherwise Status: Acute (2) Pancytopenia Narrative/Plan: This is chemotherapy-induced. This is actually much less severe, compared to the previous cycle, due to dose reduction and the use of growth factors. All counts are in a safe range. Continue to follow with supplementation as needed. Status: Acute Plan: #Possible seizure - the patient had a couple of episodes of generalized shaking per the family. It seems that at least one of these was witnessed by the EMS, who did not feel that it was characteristic of a seizure. The Patient was awake and alert throughout with no evidence of postictal state subsequently. The daughter however states that during one of the episodes, the patient was "out of it". At this time, a possible seizure does appear to be quite questionable. I will consult neurology to evaluate. At this time I will not order additional imaging, as her creatinine is elevated, and contrast cannot be used. I would prefer to order imaging with contrast, if that is felt to be necessary by neurology, given her history of malignancy, as a contrast study would be much more appropriate to check for any metastasis # Breast and ovarian cancer- the patient is currently on neoadjuvant chemotherapy with carboplatin and Taxol. She is to have restaging PET scan on
[2017-02-06 20:42] LABS: Glucose,Whole Blood 124 mg/dL (75-99)
--- NOTE | 2017-02-06 21:54 | P.CNNES ---
History of Present Illness Consult date: 02/06/17 Requesting physician: Matthew Arreaga Reason for Consult: possible seizure Chief complaint: generalized weakness History of Present Illness: Neurology is being requested to consult on a 61-year-old female who presented to the emergency department with a past history significant for breast cancer, uterine cancer. Patient does receive chemotherapy. Patient states she had chemotherapy this past Monday. Patient states she normally does okay after chemotherapy but at approximately day 3 your day for posttreatment, she begins to feel weak. Patient states that during this chemotherapy administration her weakness is significantly greater than previous. She called EMS as a result. Patient is known to have intermittent episodes of shaking that is not typical of seizure. She denied any loss of consciousness, seizure-like activity or postictal state and stated that she had full muscle control but was weak when attempting to ambulate and her legs gave out from under her. Patient denied any headache, recent injury or trauma. She denied chest pain, difficulty breathing, shortness of breath, fever, chills or cough. Patient denied any abdominal pain, nausea, vomiting or diarrhea. Nursing reported no seizure-like activity in the previous 24 hours. Patient was supine in bed, alert and oriented 3, resting and in no acute distress. Review of Systems all systems not noted previously in HPI or negative. Past Medical History Past Medical History: COPD, Diabetes Mellitus, Hypertension, Myocardial Infarction (NH) Additional Past Medical History / Comment(s): Obesity, coronary artery disease, hypertension, hyperlipidemia, diabetes mellitus, right internal carotid artery disease with less than 70% blockage, poor dental hygiene with multiple decayed teeth both in the upper and lower jaws, COPD with a baseline FEV1 of 62% of predicted, CHF with a preoperative ejection fraction of 35-40%, recently dx w/ rt breast cancer-no tx as of yet.PT HAD A PNE VACCINE NOT SURE OF DATE BUT PER OLD HX PT DUE IN 2017. Last Myocardial Infarction Date:: "I was young" unsure of year| History of Any Multi-Drug Resistant Organisms: None Reported Past Surgical History: Coronary Bypass/CABG, Heart Catheterization, Tubal Ligation Additional Past Surgical History / Comment(s): double cabg 06-28-16 Past Anesthesia/Blood Transfusion Reactions: No Reported Reaction Past Psychological History: No Psychological Hx Reported Smoking Status: Former smoker Past Alcohol Use History: None Reported Additional Past Alcohol Use History / Comment(s): smoked x 40 years, quit jun 20 2016. Past Drug Use History: None Reported - Past Family History Mother History Unknown: Yes Family Medical History: Diabetes Mellitus Additional Family Medical History / Comment(s): complications of DM at 57 Father Family Medical History: Myocardial Infarction (NH) Additional Family Medical History / Comment(s): passed in 60's alcoholism Medications and Allergies Home Medications Medication Instructions Recorded Confirmed Type Atorvastatin [Lipitor] 40 mg PO HS 08/16/16 02/05/17 History Ergocalciferol (Vitamin D2) 50,000 unit PO TH 01/09/17 02/05/17 History [Vitamin D2] Magnesium Oxide [Mag-Ox] 400 mg PO DAILY 01/09/17 02/05/17 History Ondansetron HCl [Zofran] 8 mg PO Q8H PRN 01/09/17 02/05/17 History Gabapentin [Neurontin] 100 mg PO DAILY 02/05/17 02/05/17 History HYDROcodone/APAP 5-325MG [Rodney 1 tab PO Q6H PRN 02/05/17 02/05/17 History 5-325] Allergies Allergy/AdvReac Type Severity Reaction Status Date / Time No Known Allergies Allergy Verified 02/05/17 10:16 Physical Examination - Vital Signs Vital Signs: Vital Signs Temp Pulse Resp BP BP Pulse Ox 02/06/17 15:49 65 16 02/06/17 15:00 97.7 F 57 L 18 84/43 121/61 100 02/06/17 08:00 65 16 02/06/17 07:00 97.8 F 65 16 118/57 99 02/06/17 00:00 62 16 Intake and Output 02/06/17 02/06/17 02/06/17 06:59 14:59 22:59 Intake Total 800 Balance 800 Intake: Intake, IV Titration 800 Amount Sodium Chloride 0.9% 1, 800 000 ml @ 100 mls/hr IV . Q10H ONE Rx#:[id number] Other: # Voids 2 4 4 Weight 77.111 kg 77.111 kg Patient Weight 02/07/17 06:59 Weight 77.111 kg Constitutional: AOx3, cooperative HEENT: NC/AT, no facial asymmetry is seen. Throat: Supple, no masses Respiratory: No increased work of breathing Cardiac: Regular rate and Rhythm GI: non tender, non distended Musculoskeletal: Grades 1 Through 5 Teacher strengths are equal bilaterally but weak, Lower extremity strengths are equal bilaterally but week. Neurological: CN II-XII in tact, patient was AOx3, speech and language are normal, no unilateralizing weakness, no seizure activity note on physical exam. Sensation was normal. Integementary: no rash, no erythema Psychiatric: mood and affect appropriate Results - Laboratory Findings CBC and BMP: 02/05/17 10:15 02/05/17 10:15 Abnormal Lab Findings: Abnormal Labs 02/06/17 20:25 POC Glucose (mg/dL) 124 H Assessment and Plan (1) Acute kidney injury Status: Acute (2) Generalized weakness Status: Acute (3) Pancytopenia Status: Acute (4) Peripheral neuropathy, secondary to drugs or chemicals Status: Acute Plan: 1. Generalized weakness 2. Acute kidney injury 3. Pancytopenia 4. 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 Although the patient's complaints are increased when compared to previous administration, she denies any seizure-like activity and her lower extremity weakness does not appear to be related to seizure. Patient does have a history of lower extremity weakness while receiving treatment. Patient's laboratory analysis results indicate acute kidney injury as well as pancytopenia. Continue to monitor and correct underlying etiology. Patient's upper and lower extremity numbness and tingling/neuropathy appears secondary to cancer treatment. Patient can follow-up on an outpatient basis for EMG of the upper and lower extremities. Patient can also follow up outpatient for MRI of the brain to investigate any possible new etiology or metastasis. Consults physical therapy for the lower extremity weakness recommended. Status: Patient can be cleared from a neurological standpoint for discharge or placement at a rehabilitation facility. Patient to follow-up our office within 10-14 days. I discussed the patient's pertinent medical information with Dr. Rodarte. He agrees with the plan of care as implemented.
[2017-02-06] MEDS: ATORVASTATIN 40 MG TAB PO SCH (22:09)
[2017-02-07 07:30] LABS: Glucose,Whole Blood 91 mg/dL (75-99)
[2017-02-07] MEDS: ASPIRIN 81 MG CHEW PO SCH (09:08)
[2017-02-07] MEDS: AMIODARONE 200 MG TAB PO SCH (09:08)
[2017-02-07] MEDS: METOPROLOL TARTRATE 25 MG TAB PO SCH ×2 (09:09→20:53)
[2017-02-07] MEDS: GABAPENTIN 100 MG CAP PO SCH (09:09)
[2017-02-07] MEDS: CLOPIDOGREL 75 MG TAB PO SCH (09:09)
[2017-02-07] MEDS: FAMOTIDINE 20 MG TAB PO SCH (09:09)
[2017-02-07 09:12] LABS: Anisocytosis Slight; CH 31.4; CHCM 33.6; HCT 20.8 % (34.0-46.0); MCH 31.1 pg (25.0-35.0); MCHC 33.2 g/dL (31.0-37.0); MCV 93.8 fL (80.0-100.0); Mean Platelet Volume 8.3; RBC 2.22 m/uL (3.80-5.40); RDW 16.5 % (11.5-15.5); WBC (Perox) 0.54
[2017-02-07 09:18] LABS: WBC 0.6 k/uL (3.8-10.6)
[2017-02-07 09:19] LABS: Anion Gap 6 mmol/L; Blood Urea Nitrogen 15 mg/dL (7-17); Calcium 8.2 mg/dL (8.4-10.2); Carbon Dioxide 23 mmol/L (22-30); Chloride 110 mmol/L (98-107); Glucose 87 mg/dL (74-99); HGB 6.9 gm/dL (11.4-16.0); Non-African American GFR(MDRD) 50 (>60 ml/min/1.73 sqM); Sodium 139 mmol/L (137-145)
--- NOTE | 2017-02-07 09:19 | CDI ---
In responding to this query, please exercise your independent professional judgment. The [facility] Coding Staff and Clinical Documentation Specialists appreciate your assistance in clarifying documentation, maintaining compliance with coding guidelines, accurately documenting patients condition and capturing severity of illness. The fact that a question is asked does not imply that any particular answer is desired or expected. Communication forms are a method of clarifying documentation and are not made part of the Legal Health Record. Thank you in advance for your clarification. Last Revision, November 2016 David Rizo [address] [place] [address] Documentation Clarification Form Date: 02/07/2017 9:02:00 AM From: Moraima Bermeo RN, CDS Admit Date: 02/05/2017 11:33:00 AM Patient Name: Anna Denton Visit Number: [id number] Dr. Matthew Arreaga, CHF is documented in the past medical history in H&P. History/Risk Factors: 61 y/o CHF with EF 35-40%, CAD, DM2, HTN, A-Fib, Breast and Uterine Cancer s/p Chemo Clinical Indicators: Ischemic Cardiomyopathy with EF 35-40% per H&P EKG: ST & T wave abnormality, consider inferiolateral ischemia, NSR 67 Chest X Ray: Cardiomegaly, no active cardiopulmonary disease Treatment: Home dose Lopressor 25mg BID In your professional opinion, can you please clarify the acuity and type of CHF if known? Systolic Heart Failure: Compensated Chronic Chronic Unable to determine Other, please specify Please document in your progress notes and discharge summary in order to capture severity of illness and risk of mortality. Include clinical findings that support your diagnosis. FYI: Press F11 to launch patient chart. Place X here if this finding has no clinical significance, is not applicable or if you are not able to provide any additional documentation. JUANITAD
[2017-02-07 09:50] LABS: Add Differential Manual Differential; Manual Review Performed
[2017-02-07 11:32] LABS: Glucose,Whole Blood 104 mg/dL (75-99)
[2017-02-07 16:59] LABS: Glucose,Whole Blood 96 mg/dL (75-99)
--- NOTE | 2017-02-07 18:16 | P.PN ---
Subjective Principal diagnosis: Breast and endometrial cancer, on chemotherapy Pt seen today in follow up, she is feeling a little better, nausea less, starting to eat and drink some, mild oral irritation, no vomiting, SOB, abd pain , diarrhea or constipation. Objective - Vital Signs Vital signs: Vital Signs Temp 98.3 F 02/07/17 17:02 Pulse 55 L 02/07/17 17:32 Resp 15 02/07/17 17:32 BP 123/67 02/07/17 17:32 Pulse Ox 98 02/07/17 17:32 Intake & Output 02/06/17 02/07/17 02/07/17 18:59 06:59 18:59 Intake Total 800 150 0 Balance 800 150 0 Weight 77.111 kg Intake: Intake, IV Titration 800 Amount Sodium Chloride 0.9% 1, 800 000 ml @ 100 mls/hr IV . Q10H ONE Rx#:[id number] Oral 150 Blood Product 0 Rc As-3 Unit 0 [id number] Other: Voiding Method Bedpan Bedpan Diaper # Voids 4 2 3 - Constitutional General appearance: Present: cooperative, no acute distress, obese - EENT EENT Comment(s): mild oral redness and dryness Eyes: Present: PERRLA - Respiratory Respiratory: bilateral: CTA - Cardiovascular Heart sounds: normal: S1, S2 - Gastrointestinal General gastrointestinal: Present: normal bowel sounds, soft. Absent: absent bowel sounds, decreased bowel sounds, distended, hepatomegaly, hyperactive bowel sounds, organomegaly, rigid, scaphoid, splenomegaly, tenderness, umbilical hernia, ventral hernia - Neurologic Neurologic: Present: CNII-XII intact - Musculoskeletal Musculoskeletal: Present: generalized weakness - Psychiatric Psychiatric: Present: A&O x's 3, appropriate affect, intact judgment & insight - Labs CBC & Chem 7: 02/07/17 08:05 02/07/17 08:05 Labs: Abnormal Lab Results - Last 24 Hours (Table) 02/06/17 02/07/17 02/07/17 Range/Units 20:25 08:05 08:05 WBC 0.6 L* (3.8-10.6) k/uL RBC 2.22 L (3.80-5.40) m/uL Hgb 6.9 L* D (11.4-16.0) gm/dL Hct 20.8 L (34.0-46.0) % RDW 16.5 H (11.5-15.5) % Plt Count 79 L (150-450) k/uL Chloride 110 H (98-107) mmol/L Creatinine 1.10 H (0.52-1.04) mg/dL POC Glucose (mg/dL) 124 H (75-99) mg/dL Calcium 8.2 L (8.4-10.2) mg/dL Crossmatch 02/07/17 02/07/17 Range/Units 10:07 11:23 WBC (3.8-10.6) k/uL RBC (3.80-5.40) m/uL Hgb (11.4-16.0) gm/dL Hct (34.0-46.0) % RDW (11.5-15.5) % Plt Count (150-450) k/uL Chloride (98-107) mmol/L Creatinine (0.52-1.04) mg/dL POC Glucose (mg/dL) 104 H (75-99) mg/dL Calcium (8.4-10.2) mg/dL Crossmatch See Detail Assessment and Plan (1) Generalized weakness Narrative/Plan: PT already consulted Status: Acute (2) Neutropenia Narrative/Plan: Pt did receive GCSF on 02/01, hopefully her WBC/ANC will increase over the next few days, no further support is appropriate to be given until 02/12. Pt has had no fevers since admission, close monitoring of VS, CBC daily. Status: Acute (3) Pancytopenia Narrative/Plan: 1 unit PRBCs ordered, no platelets today, platelets adequate to continue asa and plavix, SCDs for DVT prophylaxis. No GCSF today. Labs daily, conservative transfusion. Status: Acute
[2017-02-07] MEDS: ATORVASTATIN 40 MG TAB PO SCH (20:53)
[2017-02-07 20:54] LABS: Glucose,Whole Blood 86 mg/dL (75-99)
[2017-02-08 07:07] LABS: Glucose,Whole Blood 93 mg/dL (75-99)
[2017-02-08] MEDS: AMIODARONE 200 MG TAB PO SCH (09:00)
[2017-02-08] MEDS: FAMOTIDINE 20 MG TAB PO SCH (09:00)
[2017-02-08] MEDS: CLOPIDOGREL 75 MG TAB PO SCH (09:00)
[2017-02-08] MEDS: MAGNESIUM OXIDE 400 MG TAB PO SCH (09:00)
[2017-02-08] MEDS: ASPIRIN 81 MG CHEW PO SCH (09:00)
[2017-02-08] MEDS: METOPROLOL TARTRATE 25 MG TAB PO SCH ×2 (09:00→20:15)
[2017-02-08] MEDS: GABAPENTIN 100 MG CAP PO SCH (09:00)
--- NOTE | 2017-02-08 09:29 | PN ---
DATE OF SERVICE: 02/07/2017 ATTENDING NOTE: This patient was seen and examined by me earlier today. Patient is status post chemotherapy, feeling weak and tired. The patient has dropped hemoglobin and white count. Granddaughter at the bedside. On examination, pulse 58, blood pressure 132/61. Patient is awake, sitting in chair, but tired appearing. LUNGS: Decreased breath sounds. PSYCHIATRY: Alert and oriented x3. INVESTIGATIONS: White count 0.6, hemoglobin 6.9, platelets 79. ASSESSMENT: 1. Medical debility from underlying chemotherapy. 2. Pancytopenia from chemotherapy. 3. Breast and uterine cancer adenocarcinoma. 4. Chronic congestive heart failure from systolic dysfunction, ejection fraction 35% to 40% from underlying coronary artery disease. PLAN: Patient will be given a unit of blood and also started on ( ) as per oncology. Patient will have to stay in the hospital until more stabilized. Will follow.
[2017-02-08 09:56] LABS: Anisocytosis Slight; CH 32.3; CHCM 34.7; HCT 26.4 % (34.0-46.0); HDW 3.28; Immature Gran Flag Moderate; MCH 32.2 pg (25.0-35.0); MCHC 34.5 g/dL (31.0-37.0); MCV 93.3 fL (80.0-100.0); Mean Platelet Volume 10.1; RBC 2.83 m/uL (3.80-5.40); RDW 16.1 % (11.5-15.5); WBC 1.2 k/uL (3.8-10.6)
[2017-02-08 09:57] LABS: HGB 9.1 gm/dL (11.4-16.0)
[2017-02-08 10:58] LABS: Add Differential Manual Differential
[2017-02-08 11:09] LABS: Nucleated Red Blood Cells 0 /100 WBC (0-0); Total Cells Counted 100
[2017-02-08 11:10] LABS: Large Platelets Present
[2017-02-08 11:35] LABS: Glucose,Whole Blood 80 mg/dL (75-99)
[2017-02-08] MEDS: ACETAMINOPHEN TAB 325 MG TAB PO PRN ×2 (15:28→20:11)
[2017-02-08] MEDS ORDERED: IV VANCOMYCIN PER PHARMACY 1 EACH MISC MISCELLANE PRN (16:29)
--- NOTE | 2017-02-08 16:37 | PN ---
DATE OF SERVICE: 02/08/2017 PRESENTING COMPLAINT: Weak and tired. INTERVAL HISTORY: This is a 61-year-old female who is status post chemotherapy 5 days ago. Patient presented to the emergency department because she was excessively weak and tired with low appetite. Today patient has eaten most of her breakfast. No complaints of nausea, ambulatory in the hallways. States she feels some better. Review of systems done for constitutional, cardiovascular, GI, pulmonary with relevant findings as above. CURRENT MEDICATIONS: Tylenol, [place], Lipitor, Plavix, Neurontin, Lopressor, ondansetron. PHYSICAL EXAMINATION: VITAL SIGNS: Temperature 98.1, pulse 61, respiratory rate 16, blood pressure 106/56, oxygen saturation 96% on room air. EYES: Pupils equal. Conjunctivae normal. NECK: JVD not raised. Mass not palpable. LUNGS: Clear to auscultation bilaterally. RESPIRATORY: Effort normal, unlabored. CARDIOVASCULAR: First and second sounds noted. No edema. ABDOMEN: Soft, nontender. Liver and spleen not palpable. PSYCHIATRY: Alert and oriented x3. Mood and affect normal. INVESTIGATIONS: White blood cell count 1.2, hemoglobin 9.1, platelet 90. ASSESSMENT: 1. Medical debility from underlying chemotherapy. 2. Pancytopenia from chemotherapy. 3. Breast and uterine cancer adenocarcinoma. 4. Chronic congestive heart failure from systolic dysfunction. Ejection fraction 35 to 40% from underlying coronary artery disease. 5. Chronic obstructive pulmonary disease in an ex-smoker. 6. Paroxysmal atrial fibrillation. 7. Stage II sacral decubitus ulcer present on admission. PLAN: Awaiting patient's white blood cell count to rise. Next treatment due on 02/12 per Hematology/Oncology. Will discuss discharge planning with Hematology/Oncology in order to determine time table. Will follow. Patient was seen and examined by nurse practitioner, Dorothea Minaya, and all elements of the case discussed with attending, Dr. Arreaga.
[2017-02-08 17:27] LABS: Glucose,Whole Blood 89 mg/dL (75-99)
[2017-02-08] MEDS: CEFEPIME 2 GM in SODIUM CHLORIDE 0.9% 50 ML IVPB SCH (17:44)
[2017-02-08] MEDS ORDERED: VANCOMYCIN 1,750 MG in SODIUM CHLORIDE 0.9% 250 ML IVPB ONE (18:00)
[2017-02-08 18:10] LABS: Appearance,Urine Cloudy (Clear); Bacteria,Urine Many /hpf; Bilirubin,Urine Negative (Negative); Glucose,Urine (UA) Negative (Negative); Ketones,Urine Negative (Negative); Leukocyte Esterase,Urine Negative (Negative); Mucus,Urine Rare /hpf; Nitrite,Urine Positive (Negative); PH, Urine 5.5 (5.0-8.0); Particle Count 56182; Protein,Urine Trace (Negative); RBC,Urine 1 /hpf (0-5); Specific Gravity,Urine 1.008 (1.001-1.035); Squamous Epithelial Cell,Urine 10 /hpf (0-4); UA Billing (MACRO vs. MICRO) MICRO; Urobilinogen,Urine <2.0 mg/dL (<2.0); WBC,Urine 3 /hpf (0-5)
[2017-02-08] MEDS: ATORVASTATIN 40 MG TAB PO SCH (20:15)
[2017-02-08 20:21] LABS: Glucose,Whole Blood 87 mg/dL (75-99)
--- NOTE | 2017-02-08 23:00 | PN ---
DATE OF SERVICE: 02/08/2017 ATTENDING NOTE: This patient was seen examined by me earlier today. I discussed the case with nurse practitioner Ms. Minaya. Patient continues to feel weak and tired but did tolerate her breakfast. Patient did also spike a fever, was started on IV cefepime and vancomycin. On examination, temperature 102.3, pulse 90, respiration 20, blood pressure 106/56 earlier. GENERAL APPEARANCE: Sitting up, tired-appearing. EYES: Pupils equal. Conjunctivae normal. NECK: JVD not raised. Mass not palpable. RESPIRATORY: Effort normal. LUNGS: Fair air entry. CARDIOVASCULAR: First and second sounds normal. INVESTIGATIONS: White count 1.2, hemoglobin 9.1, platelets 90. ASSESSMENT: 1. Febrile neutropenia. The fever could itself be from Neupogen, too. Await infectious workup, including cultures. 2. Pancytopenia, on chemotherapy. 3. Breast and uterine carcinoma. 4. Chronic systolic congestive heart failure. PLAN: Empirically patient was put on antibiotics. Cultures are done. ID was consulted. Will follow.
--- NOTE | 2017-02-09 00:32 | P.CONS ---
History of Present Illness - Reason for Consult Consult date: 02/08/17 - Chief Complaint Weakness - History of Present Illness 61-year-old female who is a very extensive recent past medical history. She has underlying known coronary artery disease with a myocardial infarction and CABG. At the time of surgery there is evidence of a left breast mass. Biopsy revealed evidence of breast carcinoma that was locally advanced. There is abnormalities when further imaging was performed to the pelvic lymph nodes. A secondary primary of the uterus was found. The patient was seen by gynecology. Goal was to have preoperative chemotherapy and resection of the cancers. The patient was originally treated with anastrozole but this was stopped and now has been treated with carboplatinum and Taxol. Last cycle she did have significant pancytopenia. Also ill. With the third cycle she again has become quite ill with pancytopenia. Fevers and chills and constantly was brought into hospital. With concerns to her febrile neutropenia the infectious diseases consultation was requested. Review of Systems ROS unobtainable: due to mental status Past Medical History Past Medical History: COPD, Diabetes Mellitus, Hypertension, Myocardial Infarction ([place]) Additional Past Medical History / Comment(s): Obesity, coronary artery disease, hypertension, hyperlipidemia, diabetes mellitus, right internal carotid artery disease with less than 70% blockage, poor dental hygiene with multiple decayed teeth both in the upper and lower jaws, COPD with a baseline FEV1 of 62% of predicted, CHF with a preoperative ejection fraction of 35-40%, recently dx w/ rt breast cancer-no tx as of yet.PT HAD A PNE VACCINE NOT SURE OF DATE BUT PER OLD HX PT DUE IN 2017. Last Myocardial Infarction Date:: "I was young" unsure of year| History of Any Multi-Drug Resistant Organisms: None Reported Past Surgical History: Coronary Bypass/CABG, Heart Catheterization, Tubal Ligation Additional Past Surgical History / Comment(s): double cabg 06-28-16 Past Anesthesia/Blood Transfusion Reactions: No Reported Reaction Past Psychological History: No Psychological Hx Reported Smoking Status: Former smoker Past Alcohol Use History: None Reported Additional Past Alcohol Use History / Comment(s): smoked x 40 years, quit jun 20 2016. Past Drug Use History: None Reported - Past Family History Mother History Unknown: Yes Family Medical History: Diabetes Mellitus Additional Family Medical History / Comment(s): complications of DM at 57 Father History Unknown: Yes Family Medical History: Myocardial Infarction ([place]) Additional Family Medical History / Comment(s): passed in 60's alcoholism Medications and Allergies Home Medications and Allergies Comment(s): Current Medications Acetaminophen (Tylenol Tab) 650 mg PO Q6HR PRN PRN Reason: Fever and/ or Pain Last Admin: 02/08/17 20:11 Dose: 650 mg Hydrocodone Bitart/Acetaminophen ([place]helsea 5-325) 1 each PO Q6H PRN PRN Reason: Pain Amiodarone HCl (Cordarone) 200 mg PO DAILY [facility] Last Admin: 02/08/17 09:00 Dose: 200 mg Aspirin (Aspirin) 81 mg PO DAILY [facility] Last Admin: 02/08/17 09:00 Dose: 81 mg Atorvastatin Calcium (Lipitor) 40 mg PO [facility] Last Admin: 02/08/17 20:15 Dose: 40 mg Clopidogrel Bisulfate (Plavix) 75 mg PO DAILY [facility] Last Admin: 02/08/17 09:00 Dose: 75 mg Ergocalciferol (Vitamin D2) 50,000 unit PO [facility] Famotidine (Pepcid) 20 mg PO DAILY [facility] Last Admin: 02/08/17 09:00 Dose: 20 mg Gabapentin (Neurontin) 100 mg PO DAILY [facility] Last Admin: 02/08/17 09:00 Dose: 100 mg Cefepime HCl 2 gm/ Sodium (Chloride) 50 mls @ 100 mls/hr IVPB Q8HR [facility] Last Admin: 02/08/17 17:44 Dose: 100 mls/hr Vancomycin HCl 1,250 mg/ (Sodium Chloride) 250 mls @ 125 mls/hr IVPB Q16H [facility] Magnesium Oxide (Mag-Ox) 400 mg PO DAILY [facility] Last Admin: 02/08/17 09:00 Dose: 400 mg Metoprolol Tartrate (Lopressor) 25 mg PO BID [facility] Last Admin: 02/08/17 20:15 Dose: 25 mg Ondansetron HCl (Zofran Odt) 8 mg PO Q8H PRN PRN Reason: Nausea Home Medications Medication Instructions Recorded Confirmed Type Atorvastatin [Lipitor] 40 mg PO HS 08/16/16 02/05/17 History Ergocalciferol (Vitamin D2) 50,000 unit PO TH 01/09/17 02/05/17 History [Vitamin D2] Magnesium Oxide [Mag-Ox] 400 mg PO DAILY 01/09/17 02/05/17 History Ondansetron HCl [Zofran] 8 mg PO Q8H PRN 01/09/17 02/05/17 History Gabapentin [Neurontin] 100 mg PO DAILY 02/05/17 02/05/17 History HYDROcodone/APAP 5-325MG [Chelsea 1 tab PO Q6H PRN 02/05/17 02/05/17 History 5-325] Allergies Allergy/AdvReac Type Severity Reaction Status Date / Time No Known Allergies Allergy Verified 02/05/17 10:16 Physical Exam Vitals: Vital Signs Temp Pulse Resp BP BP Pulse Ox 02/08/17 16:47 102.9 F H 02/08/17 16:13 102.6 F H 02/08/17 16:00 91 20 02/08/17 15:00 102.3 F H 91 20 188/77 98 02/08/17 08:00 61 16 02/08/17 07:00 98.1 F 61 16 106/56 96 Intake and Output 02/08/17 02/08/17 02/09/17 14:59 22:59 06:59 Intake Total 730 Balance 730 Intake: Intake, IV Titration 250 Amount Vancomycin 1,750 mg In 250 Sodium Chloride 0.9% 250 ml @ 125 mls/hr IVPB ONCE ONE Rx#:[id number] Oral 480 Other: Voiding Method Bedside Commode Bedside Commode Urinal Urinal # Voids 5 5 Weight 73 kg Patient Weight 02/09/17 06:59 Weight 73 kg 61 year old woman who appears older than her stated age. Does have some obesity with evidence of weight loss. HEENT: Anicteric conjunctiva are pink and moist nasal mucosa grossly intact without significant lesions, there is no thrush. Poor dentition Neck: The neck is supple without significant lymphadenopathy or thyromegaly. Lungs: Good bilateral air entry without significant crackles wheezes are scattered. There is no significant bronchial sounds. There is no egophony or dullness. Heart: Regular rate and rhythm with an audible S1-S2, no S3 no S4. There is no significant murmur click or rub, PMI was nondisplaced. Abdomen: Obese Positive bowel sounds soft and some tenderness in the lower quadrants. No masses palpable There was no guarding or rebound. Extremities: The upper extremities have excellent pulses they are symmetric, no significant petechiae or telangiectasia. No splinter hemorrhages were noted. The lower extremities are free from significant edema. The peripheral pulses were 2+ and symmetric. Neuro: Arousable but irritable Results CBC & Chem 7: 02/08/17 08:35 02/07/17 08:05 Labs: Abnormal Lab Results - Last 24 Hours (Table) 02/08/17 02/08/17 Range/Units 08:35 17:40 WBC 1.2 L* (3.8-10.6) k/uL RBC 2.83 L (3.80-5.40) m/uL Hgb 9.1 L D (11.4-16.0) gm/dL Hct 26.4 L (34.0-46.0) % RDW 16.1 H (11.5-15.5) % Plt Count 90 L (150-450) k/uL Neutrophils # (Manual) 0.1 L (1.3-7.7) k/uL Urine Appearance Cloudy H (Clear) Urine Protein Trace H (Negative) Urine Nitrite Positive H (Negative) Ur Squamous Epith Cells 10 H (0-4) /hpf Urine Bacteria Many H (None) /hpf Urine Mucus Rare H (None) /hpf Microbiology - Last 24 Hours (Table) 02/08/17 17:40 Urine Culture - Preliminary Urine,Voided Laboratory Results WBC 1.2 k/uL (3.8-10.6) L* 02/08/17 08:35 RBC 2.83 m/uL (3.80-5.40) L 02/08/17 08:35 Hgb 9.1 gm/dL (11.4-16.0) L D 02/08/17 08:35 Hct 26.4 % (34.0-46.0) L 02/08/17 08:35 MCV 93.3 fL (80.0-100.0) 02/08/17 08:35 MCH 32.2 pg (25.0-35.0) 02/08/17 08:35 MCHC 34.5 g/dL (31.0-37.0) 02/08/17 08:35 RDW 16.1 % (11.5-15.5) H 02/08/17 08:35 Plt Count 90 k/uL (150-450) L 02/08/17 08:35 Neutrophils % 55 % 02/05/17 10:15 Neutrophils % (Manual) 6.0 % 02/08/17 08:35 Band Neutrophils % 1.0 % 02/08/17 08:35 Lymphocytes % 30 % 02/05/17 10:15 Lymphocytes % (Manual) 81.0 % 02/08/17 08:35 Monocytes % 5 % 02/05/17 10:15 Monocytes % (Manual) 7.0 % 02/08/17 08:35 Eosinophils % 10 % 02/05/17 10:15 Eosinophils % (Manual) 5.0 % 02/08/17 08:35 Basophils % 0 % 02/05/17 10:15 Neutrophils # 1.5 k/uL (1.3-7.7) 02/05/17 10:15 Neutrophils # (Manual) 0.1 k/uL (1.3-7.7) L 02/08/17 08:35 Lymphocytes # 0.8 k/uL (1.0-4.8) L 02/05/17 10:15 Lymphocytes # (Manual) 1.0 k/uL (1.0-4.8) 02/08/17 08:35 Monocytes # 0.1 k/uL (0-1.0) 02/05/17 10:15 Monocytes # (Manual) 0.1 k/uL (0-1.0) 02/08/17 08:35 Eosinophils # 0.3 k/uL (0-0.7) 02/05/17 10:15 Eosinophils # (Manual) 0.1 k/uL (0-0.7) 02/08/17 08:35 Basophils # 0.0 k/uL (0-0.2) 02/05/17 10:15 Nucleated RBCs 0 /100 WBC (0-0) 02/08/17 08:35 Differential Comment 02/07/17 08:05 Manual Slide Review Performed 02/07/17 08:05 Large Platelets Present 02/08/17 08:35 Poikilocytosis (manual Present 02/08/17 08:35 Anisocytosis Slight 02/08/17 08:35 PT 10.7 sec (9.0-12.0) 02/05/17 10:15 INR 1.1 (<1.1) 02/05/17 10:15 APTT 19.2 sec (22.0-30.0) L 02/05/17 10:15 Sodium 139 mmol/L (137-145) 02/07/17 08:05 Potassium 4.0 mmol/L (3.5-5.1) 02/07/17 08:05 Chloride 110 mmol/L (98-107) H 02/07/17 08:05 Carbon Dioxide 23 mmol/L (22-30) 02/07/17 08:05 Anion Gap 6 mmol/L 02/07/17 08:05 BUN 15 mg/dL (7-17) 02/07/17 08:05 Creatinine 1.10 mg/dL (0.52-1.04) H 02/07/17 08:05 Est GFR (MDRD) Af Amer >60 (>60 ml/min/1.73 sqM) 02/07/17 08:05 Est GFR (MDRD) Non-Af 50 (>60 ml/min/1.73 sqM) 02/07/17 08:05 Glucose 87 mg/dL (74-99) 02/07/17 08:05 POC Glucose (mg/dL) 87 mg/dL (75-99) 02/08/17 20:19 POC Glu Toll Mechanic ID Macy Badillo 02/08/17 20:19 Calcium 8.2 mg/dL (8.4-10.2) L 02/07/17 08:05 Magnesium 2.0 mg/dL (1.6-2.3) 02/05/17 10:15 Total Bilirubin 1.0 mg/dL (0.2-1.3) 02/05/17 10:15 AST 68 U/L (14-36) H 02/05/17 10:15 ALT 58 U/L (9-52) H 02/05/17 10:15 Alkaline Phosphatase 115 U/L (38-126) 02/05/17 10:15 Total Creatine Kinase 40 U/L (30-135) 02/05/17 10:15 CK-MB (CK-2) 0.8 ng/mL (0.0-2.4) 02/05/17 10:15 CK-MB (CK-2) Rel Index 2.0 02/05/17 10:15 Troponin I <0.012 ng/mL (0.000-0.034) 02/05/17 10:15 Total Protein 6.7 g/dL (6.3-8.2) 02/05/17 10:15 Albumin 3.4 g/dL (3.5-5.0) L 02/05/17 10:15 Urine Color Yellow 02/08/17 17:40 Urine Appearance Cloudy (Clear) H 02/08/17 17:40 Urine pH 5.5 (5.0-8.0) 02/08/17 17:40 Ur Specific Buhl 1.008 (1.001-1.035) 02/08/17 17:40 Urine Protein Trace (Negative) H 02/08/17 17:40 Urine Glucose (UA) Negative (Negative) 02/08/17 17:40 Urine Ketones Negative (Negative) 02/08/17 17:40 Urine Blood Negative (Negative) 02/08/17 17:40 Urine Nitrite Positive (Negative) H 02/08/17 17:40 Urine Bilirubin Negative (Negative) 02/08/17 17:40 Urine Urobilinogen <2.0 mg/dL (<2.0) 02/08/17 17:40 Ur Leukocyte Esterase Negative (Negative) 02/08/17 17:40 Urine RBC 1 /hpf (0-5) 02/08/17 17:40 Urine WBC 3 /hpf (0-5) 02/08/17 17:40 Ur Squamous Epith Cells 10 /hpf (0-4) H 02/08/17 17:40 Urine Bacteria Many /hpf (None) H 02/08/17 17:40 Urine Mucus Rare /hpf (None) H 02/08/17 17:40 Blood Type A Positive 02/07/17 10:07 Blood Type Recheck No 02/07/17 10:07 Antibody Screen NEGATIVE 02/07/17 10:07 Crossmatch See Detail 02/07/17 10:07 Spec Expiration Date 02/10/2017230602/07/17 10:07 Microbiology 02/08/17 17:40 Urine,Voided Urine Culture - Preliminary Chest x-ray: image reviewed (No active infiltrate) Assessment and Plan (1) Febrile neutropenia Narrative/Plan: 61-year-old woman who has a history of breast carcinoma as well as uterine cancer who is undergoing neoadjuvant chemotherapy at this point in time. Has developed febrile neutropenia and pancytopenia. She is quite ill at this point in time requiring transfusion. There was a concern she may have had a seizure neurology is seeing but so far no evidence of seizures and she's been admitted. With the neutropenia and mucositis antibiotic therapy with cefepime and vancomycin has been initiated. She is still able to eat at this point in time. If she does not improve antifungal therapy will be initiated. Albumin is low and will need protein supplementation as she recovers to help her with her overall recovery Blood and urine cultures are pending and will further help direct antibiotic therapy in the future. Receiving Tylenol for her fevers. Fans are requested to try to cool her and help with her significant fever. Status: Acute
[2017-02-09] MEDS: CEFEPIME 2 GM in SODIUM CHLORIDE 0.9% 50 ML IVPB SCH ×3 (02:27→20:54)
[2017-02-09] MEDS: VANCOMYCIN 1,250 MG in SODIUM CHLORIDE 0.9% 250 ML IVPB SCH ×2 (05:38→22:09)
[2017-02-09 08:08] LABS: Anisocytosis Slight; Aty Lym Flag Marked; CH 31.9; CHCM 32.9; HCT 24.6 % (34.0-46.0); HDW 3.08; HGB 8.1 gm/dL (11.4-16.0); MCV 97.1 fL (80.0-100.0); Macrocytosis Slight; Mean Platelet Volume 9.3; RBC 2.53 m/uL (3.80-5.40); RDW 16.2 % (11.5-15.5); WBC (Perox) 0.61
[2017-02-09 08:15] LABS: WBC 0.6 k/uL (3.8-10.6)
[2017-02-09 08:25] LABS: Glucose,Whole Blood 79 mg/dL (75-99)
[2017-02-09] MEDS: ACETAMINOPHEN TAB 325 MG TAB PO PRN ×2 (08:27→22:09)
[2017-02-09 08:28] LABS: Calcium 8.1 mg/dL (8.4-10.2); Potassium 3.9 mmol/L (3.5-5.1)
[2017-02-09] MEDS: CLOPIDOGREL 75 MG TAB PO SCH (08:28)
[2017-02-09] MEDS: FAMOTIDINE 20 MG TAB PO SCH (08:28)
[2017-02-09] MEDS: GABAPENTIN 100 MG CAP PO SCH (08:28)
[2017-02-09] MEDS: AMIODARONE 200 MG TAB PO SCH (08:28)
[2017-02-09] MEDS: METOPROLOL TARTRATE 25 MG TAB PO SCH ×2 (08:28→22:12)
[2017-02-09] MEDS: MAGNESIUM OXIDE 400 MG TAB PO SCH (08:28)
[2017-02-09] MEDS: ASPIRIN 81 MG CHEW PO SCH (08:28)
[2017-02-09 08:41] LABS: Add Differential Manual Differential; Manual Review Performed
[2017-02-09 11:54] LABS: Glucose,Whole Blood 80 mg/dL (75-99)
--- NOTE | 2017-02-09 14:56 | P.PN ---
Subjective Principal diagnosis: Breast and endometrial cancer, on chemotherapy Pt seen today in follow up, she is feeling better, mouth is a little sore still but she is tolerating some oral intake, no nausea or vomiting, SOB, abd pain, diarrhea or constipation. Objective - Vital Signs Vital signs: Vital Signs Temp 98.5 F 02/09/17 07:00 Pulse 66 02/09/17 07:00 Resp 16 02/09/17 07:00 BP 96/51 02/09/17 07:00 Pulse Ox 98 02/09/17 07:00 Intake & Output 02/08/17 02/09/17 02/09/17 18:59 06:59 18:59 Intake Total 730 240 Balance 730 240 Weight 73 kg 73.2 kg Intake: Intake, IV Titration 250 Amount Vancomycin 1,750 mg In 250 Sodium Chloride 0.9% 250 ml @ 125 mls/hr IVPB ONCE ONE Rx#:[id number] Oral 480 240 Other: Voiding Method Bedside Commode Bedside Commode Urinal Urinal # Voids 5 2 - Constitutional General appearance: Present: cooperative, no acute distress, obese - EENT EENT Comment(s): oropharyngeal thrush, mild redness Eyes: Present: PERRLA, normal appearance ENT: Present: hearing grossly normal, pharyngeal erythema - Respiratory Respiratory: bilateral: rales (scattered, clear with cough) - Cardiovascular Heart sounds: normal: S1, S2 - Gastrointestinal General gastrointestinal: Present: normal bowel sounds, soft. Absent: absent bowel sounds, decreased bowel sounds, distended, hepatomegaly, hyperactive bowel sounds, organomegaly, rigid, scaphoid, splenomegaly, tenderness, umbilical hernia, ventral hernia - Musculoskeletal Musculoskeletal: Present: generalized weakness, strength equal bilaterally - Psychiatric Psychiatric: Present: A&O x's 3, appropriate affect, intact judgment & insight - Labs CBC & Chem 7: 02/09/17 07:21 02/09/17 07:21 Labs: Abnormal Lab Results - Last 24 Hours (Table) 02/08/17 02/09/17 02/09/17 Range/Units 17:40 07:21 07:21 WBC 0.6 L* (3.8-10.6) k/uL RBC 2.53 L (3.80-5.40) m/uL Hgb 8.1 L (11.4-16.0) gm/dL Hct 24.6 L (34.0-46.0) % RDW 16.2 H (11.5-15.5) % Plt Count 74 L (150-450) k/uL Creatinine 1.15 H (0.52-1.04) mg/dL Calcium 8.1 L (8.4-10.2) mg/dL Urine Appearance Cloudy H (Clear) Urine Protein Trace H (Negative) Urine Nitrite Positive H (Negative) Ur Squamous Epith Cells 10 H (0-4) /hpf Urine Bacteria Many H (None) /hpf Urine Mucus Rare H (None) /hpf Microbiology - Last 24 Hours (Table) 02/08/17 17:40 Urine Culture - Preliminary Urine,Voided Assessment and Plan (1) Generalized weakness Narrative/Plan: PT already consulted Status: Acute (2) Pancytopenia Narrative/Plan: Slightly worse CBC today, no transfusions, cannot initiate GCSF until 02/12 as pt received neulasta 02/01. CBC daily Status: Acute (3) Febrile neutropenia Narrative/Plan: Pancultures obtained, empiric antibiotics initiated, ID on consult Status: Acute Plan: Pt has 2 curable primary malignancies but, she is having difficulty tolerating treatment. She has been hospitalized after 2 of 3 cycles, she had GCSF added after 1 cycle, cycle 2 was postponed by 1 week and cycle 3 had 10% dose reduction. Pt is due for restaging PET scan and it is sched for this Sat, likely pt cultures will not have finalized by then so it will be rescheduled. Based on restaging future plans for treatment will be made. Pt verbalized understanding.
[2017-02-09 17:17] LABS: Glucose,Whole Blood 91 mg/dL (75-99)
--- NOTE | 2017-02-09 20:27 | PN ---
DATE OF SERVICE: 02/09/2017. PRESENTING COMPLAINT: Weak and tired. INTERVAL HISTORY: This is a 61-year-old female who is status post chemotherapy. Yesterday patient did develop a fever late in the afternoon. Fever broke this morning. Empiric antibiotics were initiated. Blood cultures were sent. ID was consulted. Today patient is awake, alert, sitting up eating her breakfast. She says she feels very well. She says it is the best she has felt since she has been here. Patient has been able to walk to and from between the bed and the chair and to the bathroom. Review of systems done for constitutional, cardiovascular, GI, pulmonary, with relevant findings as above. CURRENT MEDICATIONS: Tylenol. [place] Lipitor, Plavix, Neurontin, Lopressor, ondansetron. PHYSICAL EXAMINATION: VITAL SIGNS: Temperature 98.5, pulse 66, respiratory rate 16, blood pressure 96/51, oxygen saturation 98% on room air. GENERAL APPEARANCE: Patient is awake, alert no acute distress noted or voiced. States she feels pretty good. EYES: Pupils equal. Conjunctivae normal. NECK: JVD not raised. Mass not palpable. LUNGS: Breath sounds diminished bilaterally. Scattered crackles throughout the upper lobes: RESPIRATORY: Effort normal, unlabored. CARDIOVASCULAR: First and second sounds normal. Trace edema noted to bilateral lower extremities. ABDOMEN: Soft, nontender. Liver and spleen not palpable. PSYCHIATRY: Alert and oriented x3. Mood and affect are normal. INVESTIGATIONS: White blood cell count 0.6, hemoglobin 8.1, platelet count 74, sodium 138, potassium 3.9. BUN 17, creatinine 1.15. ASSESSMENT: 1. Febrile neutropenia. Fever could be result of administration of Neupogen, improving, awaiting infectious work up and cultures. 2. Pancytopenia on chemotherapy. 3. Breast and uterine carcinoma. 4. Chronic systolic congestive heart failure. 5. Medical debility from underlying chemotherapy. 6. Chronic obstructive pulmonary disease in an ex-smoker. 7. Paroxysmal atrial fibrillation. 8. Stage II sacral decubitus ulcer present on admission. PLAN: Patient remains empirically on antibiotics. ID following. Cultures completed, awaiting results. Will continue to follow. Patient was seen and examined by nurse practitioner, Dorothea Minaya and all elements of the case discussed with attending, Dr. Arreaga. I performed a history and physical examination of this patient and discussed the same with the dictator. I agree with the dictator's note. Any additional findings/opinions, etc. will be noted.
[2017-02-09 20:36] LABS: Glucose,Whole Blood 88 mg/dL (75-99)
[2017-02-09] MEDS: ATORVASTATIN 40 MG TAB PO SCH (22:12)
[2017-02-09] MEDS ORDERED: ERGOCALCIFEROL 50,000 UNIT CAP PO SCH (22:51)
--- NOTE | 2017-02-09 22:59 | P.PN ---
Subjective Principal diagnosis: Weakness 61-year-old female who is a very extensive recent past medical history. She has underlying known coronary artery disease with a myocardial infarction and CABG. At the time of surgery there is evidence of a left breast mass. Biopsy revealed evidence of breast carcinoma that was locally advanced. There is abnormalities when further imaging was performed to the pelvic lymph nodes. A secondary primary of the uterus was found. The patient was seen by gynecology. Goal was to have preoperative chemotherapy and resection of the cancers. The patient was originally treated with anastrozole but this was stopped and now has been treated with carboplatinum and Taxol. Last cycle she did have significant pancytopenia. Also ill. With the third cycle she again has become quite ill with pancytopenia. Fevers and chills and constantly was brought into hospital. Febrile neutropenia was noted. Overall reported to marked improvement today but is still neutropenic. Objective - Vital Signs Vital signs: Vital Signs Temp 98.9 F 02/09/17 15:00 Pulse 71 02/09/17 16:00 Resp 16 02/09/17 16:00 BP 115/75 02/09/17 15:00 Pulse Ox 98 02/09/17 15:00 Intake & Output 02/09/17 02/09/17 02/10/17 06:59 18:59 06:59 Intake Total 240 Balance 240 Weight 73.2 kg Intake: Oral 240 Other: Voiding Method Bedside Commode Bedside Commode Urinal Urinal # Voids 2 2 # Bowel Movements 1 - Exam 61 year old woman who appears older than her stated age. Does have some obesity with evidence of weight loss. HEENT: Anicteric conjunctiva are pink and moist nasal mucosa grossly intact without significant lesions, there is no thrush. Poor dentition Neck: The neck is supple without significant lymphadenopathy or thyromegaly. Lungs: Good bilateral air entry without significant crackles wheezes are scattered. There is no significant bronchial sounds. There is no egophony or dullness. Heart: Regular rate and rhythm with an audible S1-S2, no S3 no S4. There is no significant murmur click or rub, PMI was nondisplaced. Abdomen: Obese Positive bowel sounds soft and some tenderness in the lower quadrants. No masses palpable There was no guarding or rebound. Extremities: The upper extremities have excellent pulses they are symmetric, no significant petechiae or telangiectasia. No splinter hemorrhages were noted. The lower extremities are free from significant edema. The peripheral pulses were 2+ and symmetric. Neuro: Arousable less irritable - Labs CBC & Chem 7: 02/09/17 07:21 02/09/17 07:21 Labs: Abnormal Lab Results - Last 24 Hours (Table) 02/09/17 02/09/17 Range/Units 07:21 07:21 WBC 0.6 L* (3.8-10.6) k/uL RBC 2.53 L (3.80-5.40) m/uL Hgb 8.1 L (11.4-16.0) gm/dL Hct 24.6 L (34.0-46.0) % RDW 16.2 H (11.5-15.5) % Plt Count 74 L (150-450) k/uL Creatinine 1.15 H (0.52-1.04) mg/dL Calcium 8.1 L (8.4-10.2) mg/dL Microbiology - Last 24 Hours (Table) 02/08/17 17:40 Urine Culture - Preliminary Urine,Voided Gram Neg Bacilli 02/08/17 15:29 Blood Culture - Preliminary Blood No Growth after 24 hours Laboratory Results WBC 0.6 k/uL (3.8-10.6) L* 02/09/17 07:21 RBC 2.53 m/uL (3.80-5.40) L 02/09/17 07:21 Hgb 8.1 gm/dL (11.4-16.0) L 02/09/17 07:21 Hct 24.6 % (34.0-46.0) L 02/09/17 07:21 MCV 97.1 fL (80.0-100.0) 02/09/17 07:21 MCH 32.0 pg (25.0-35.0) 02/09/17 07:21 MCHC 33.0 g/dL (31.0-37.0) 02/09/17 07:21 RDW 16.2 % (11.5-15.5) H 02/09/17 07:21 Plt Count 74 k/uL (150-450) L 02/09/17 07:21 Neutrophils % 55 % 02/05/17 10:15 Neutrophils % (Manual) 6.0 % 02/08/17 08:35 Band Neutrophils % 1.0 % 02/08/17 08:35 Lymphocytes % 30 % 02/05/17 10:15 Lymphocytes % (Manual) 81.0 % 02/08/17 08:35 Monocytes % 5 % 02/05/17 10:15 Monocytes % (Manual) 7.0 % 02/08/17 08:35 Eosinophils % 10 % 02/05/17 10:15 Eosinophils % (Manual) 5.0 % 02/08/17 08:35 Basophils % 0 % 02/05/17 10:15 Neutrophils # 1.5 k/uL (1.3-7.7) 02/05/17 10:15 Neutrophils # (Manual) 0.1 k/uL (1.3-7.7) L 02/08/17 08:35 Lymphocytes # 0.8 k/uL (1.0-4.8) L 02/05/17 10:15 Lymphocytes # (Manual) 1.0 k/uL (1.0-4.8) 02/08/17 08:35 Monocytes # 0.1 k/uL (0-1.0) 02/05/17 10:15 Monocytes # (Manual) 0.1 k/uL (0-1.0) 02/08/17 08:35 Eosinophils # 0.3 k/uL (0-0.7) 02/05/17 10:15 Eosinophils # (Manual) 0.1 k/uL (0-0.7) 02/08/17 08:35 Basophils # 0.0 k/uL (0-0.2) 02/05/17 10:15 Nucleated RBCs 0 /100 WBC (0-0) 02/08/17 08:35 Differential Comment 02/09/17 07:21 Manual Slide Review Performed 02/09/17 07:21 Large Platelets Present 02/08/17 08:35 Poikilocytosis (manual Present 02/09/17 07:21 Anisocytosis Slight 02/09/17 07:21 Macrocytosis Slight 02/09/17 07:21 PT 10.7 sec (9.0-12.0) 02/05/17 10:15 INR 1.1 (<1.1) 02/05/17 10:15 APTT 19.2 sec (22.0-30.0) L 02/05/17 10:15 Sodium 138 mmol/L (137-145) 02/09/17 07:21 Potassium 3.9 mmol/L (3.5-5.1) 02/09/17 07:21 Chloride 106 mmol/L (98-107) 02/09/17 07:21 Carbon Dioxide 23 mmol/L (22-30) 02/09/17 07:21 Anion Gap 9 mmol/L 02/09/17 07:21 BUN 17 mg/dL (7-17) 02/09/17 07:21 Creatinine 1.15 mg/dL (0.52-1.04) H 02/09/17 07:21 Est GFR (MDRD) Af Amer 58 (>60 ml/min/1.73 sqM) 02/09/17 07:21 Est GFR (MDRD) Non-Af 48 (>60 ml/min/1.73 sqM) 02/09/17 07:21 Glucose 79 mg/dL (74-99) 02/09/17 07:21 POC Glucose (mg/dL) 88 mg/dL (75-99) 02/09/17 20:36 POC Glu Stoker Mechanic ID Macy Badillo 02/09/17 20:36 Calcium 8.1 mg/dL (8.4-10.2) L 02/09/17 07:21 Magnesium 2.0 mg/dL (1.6-2.3) 02/05/17 10:15 Total Bilirubin 1.0 mg/dL (0.2-1.3) 02/05/17 10:15 AST 68 U/L (14-36) H 02/05/17 10:15 ALT 58 U/L (9-52) H 02/05/17 10:15 Alkaline Phosphatase 115 U/L (38-126) 02/05/17 10:15 Total Creatine Kinase 40 U/L (30-135) 02/05/17 10:15 CK-MB (CK-2) 0.8 ng/mL (0.0-2.4) 02/05/17 10:15 CK-MB (CK-2) Rel Index 2.0 02/05/17 10:15 Troponin I <0.012 ng/mL (0.000-0.034) 02/05/17 10:15 Total Protein 6.7 g/dL (6.3-8.2) 02/05/17 10:15 Albumin 3.4 g/dL (3.5-5.0) L 02/05/17 10:15 Urine Color Yellow 02/08/17 17:40 Urine Appearance Cloudy (Clear) H 02/08/17 17:40 Urine pH 5.5 (5.0-8.0) 02/08/17 17:40 Ur Specific [place] 1.008 (1.001-1.035) 02/08/17 17:40 Urine Protein Trace (Negative) H 02/08/17 17:40 Urine Glucose (UA) Negative (Negative) 02/08/17 17:40 Urine Ketones Negative (Negative) 02/08/17 17:40 Urine Blood Negative (Negative) 02/08/17 17:40 Urine Nitrite Positive (Negative) H 02/08/17 17:40 Urine Bilirubin Negative (Negative) 02/08/17 17:40 Urine Urobilinogen <2.0 mg/dL (<2.0) 02/08/17 17:40 Ur Leukocyte Esterase Negative (Negative) 02/08/17 17:40 Urine RBC 1 /hpf (0-5) 02/08/17 17:40 Urine WBC 3 /hpf (0-5) 02/08/17 17:40 Ur Squamous Epith Cells 10 /hpf (0-4) H 02/08/17 17:40 Urine Bacteria Many /hpf (None) H 02/08/17 17:40 Urine Mucus Rare /hpf (None) H 02/08/17 17:40 Blood Type A Positive 02/07/17 10:07 Blood Type Recheck No 02/07/17 10:07 Antibody Screen NEGATIVE 02/07/17 10:07 Crossmatch See Detail 02/07/17 10:07 Spec Expiration Date 02/10/2017230602/07/17 10:07 Microbiology 02/08/17 17:40 Urine,Voided Urine Culture - Preliminary Gram Neg Bacilli 02/08/17 15:29 Blood Blood Culture - Preliminary No Growth after 24 hours Assessment and Plan (1) Febrile neutropenia Narrative/Plan: 61-year-old woman who has a history of breast carcinoma as well as uterine cancer who is undergoing neoadjuvant chemotherapy at this point in time. Has developed febrile neutropenia and pancytopenia. She is quite ill at this point in time requiring transfusion. There was a concern she may have had a seizure neurology is seeing but so far no evidence of seizures and she's been admitted. With the neutropenia and mucositis antibiotic therapy with cefepime and vancomycin has been initiated. She is still able to eat at this point in time. If she does not improve antifungal therapy will be initiated. Albumin is low and will need protein supplementation as she recovers to help her with her overall recovery Blood and urine cultures are pending and will further help direct antibiotic therapy in the future. High-grade fevers up yesterday have not resolved. Is improved and mentation is improved some 2. Antimicrobial therapy continues for now. Status: Acute
[2017-02-10 07:54] LABS: Glucose,Whole Blood 78 mg/dL (75-99)
[2017-02-10 08:50] LABS: Aty Lym Flag Marked; CH 31.9; CHCM 33.8; HCT 24.2 % (34.0-46.0); HDW 3.28; HGB 8.2 gm/dL (11.4-16.0); MCH 32.1 pg (25.0-35.0); MCHC 33.9 g/dL (31.0-37.0); MCV 94.7 fL (80.0-100.0); Mean Platelet Volume 9.3; RBC 2.56 m/uL (3.80-5.40); RDW 15.9 % (11.5-15.5); WBC (Perox) 0.74
[2017-02-10 08:53] LABS: WBC 0.8 k/uL (3.8-10.6)
[2017-02-10] MEDS: FAMOTIDINE 20 MG TAB PO SCH (09:06)
[2017-02-10] MEDS: AMIODARONE 200 MG TAB PO SCH (09:06)
[2017-02-10] MEDS: MAGNESIUM OXIDE 400 MG TAB PO SCH (09:06)
[2017-02-10] MEDS: GABAPENTIN 100 MG CAP PO SCH (09:06)
[2017-02-10] MEDS: CEFEPIME 2 GM in SODIUM CHLORIDE 0.9% 50 ML IVPB SCH ×2 (09:06→22:18)
[2017-02-10] MEDS: CLOPIDOGREL 75 MG TAB PO SCH (09:06)
[2017-02-10] MEDS: ASPIRIN 81 MG CHEW PO SCH (09:06)
[2017-02-10] MEDS: METOPROLOL TARTRATE 25 MG TAB PO SCH ×2 (09:06→22:19)
[2017-02-10 10:04] LABS: Add Differential Manual Differential
[2017-02-10 12:06] VITALS: BMI 27.4
[2017-02-10 12:36] LABS: Glucose,Whole Blood 74 mg/dL (75-99)
--- NOTE | 2017-02-10 14:25 | P.PN ---
Subjective Principal diagnosis: Breast and endometrial cancer, on chemotherapy, neutropenic fever Pt seen in followup, she had a Tmax 100.9F last night, she was incontinent of urine x 1. She is tolerating moderate oral intake of clear and full liquids, mouth is not sore, no difficulty swallowing, cough, SOB, nausea or vomiting, dysuria, no BM today, she had been getting up with staff but did not get out of bed today. Objective - Vital Signs Vital signs: Vital Signs Temp 98.1 F 02/10/17 07:00 Pulse 65 02/10/17 07:00 Resp 18 02/10/17 08:00 BP 117/59 02/10/17 07:00 Pulse Ox 92 L 02/10/17 08:01 Intake & Output 02/09/17 02/10/17 02/10/17 18:59 06:59 18:59 Intake Total 1080 Balance 1080 Weight 72.53 kg 72.53 kg Intake: Intake, IV Titration 300 Amount Cefepime 2 gm In Sodium 50 Chloride 0.9% 50 ml @ 100 mls/hr IVPB Q12HR [facility] Rx #:[id number] Vancomycin 1,250 mg In 250 Sodium Chloride 0.9% 250 ml @ 125 mls/hr IVPB Q16H [facility] Rx#:[id number] Oral 780 Other: Voiding Method Bedside Commode Bedside Commode Bedside Commode Urinal Urinal Urinal # Voids 2 1 # Bowel Movements 1 - Constitutional General appearance: Present: average body habitus, cooperative, no acute distress - EENT Eyes: Present: EOMI, normal appearance ENT: Present: normal oropharynx - Respiratory Respiratory: bilateral: CTA - Cardiovascular Rhythm: regular Heart sounds: normal: S1, S2 - Peripheral edema leg Peripheral Edema: bilateral: None - Gastrointestinal General gastrointestinal: Present: normal bowel sounds, soft - Integumentary Integumentary: Present: pale - Neurologic Neurologic: Present: CNII-XII intact - Musculoskeletal Musculoskeletal: Present: generalized weakness, strength equal bilaterally - Psychiatric Psychiatric: Present: A&O x's 3, appropriate affect, intact judgment & insight - Labs CBC & Chem 7: 02/10/17 07:54 02/09/17 07:21 Labs: Abnormal Lab Results - Last 24 Hours (Table) 02/10/17 02/10/17 Range/Units 07:54 12:33 WBC 0.8 L* (3.8-10.6) k/uL RBC 2.56 L (3.80-5.40) m/uL Hgb 8.2 L (11.4-16.0) gm/dL Hct 24.2 L (34.0-46.0) % RDW 15.9 H (11.5-15.5) % Plt Count 92 L (150-450) k/uL POC Glucose (mg/dL) 74 L (75-99) mg/dL Microbiology - Last 24 Hours (Table) 02/08/17 17:40 Urine Culture - Preliminary Urine,Voided Gram Neg Bacilli 02/08/17 15:29 Blood Culture - Preliminary Blood No Growth after 24 hours Assessment and Plan (1) Generalized weakness Narrative/Plan: PT already consulted, encouraged pt to get ambulating and spoke with staff to encourage pt to get out of bed Status: Acute (2) Pancytopenia Narrative/Plan: Hgb and Plt stable, WBC continues to be nil. GCSF can be started as she is 10 days out from [place] Status: Acute (3) Febrile neutropenia Narrative/Plan: T max 100.9F overnight, ID following, antibiotics ordered, UA + culture pending , blood cultures negative at 24 hours. Status: Acute Plan: PET scan and follow up with Dr. Cervantes have been rescheduled, new appt dates and times on DC plan.
[2017-02-10] MEDS: VANCOMYCIN 1,250 MG in SODIUM CHLORIDE 0.9% 250 ML IVPB SCH (16:51)
[2017-02-10 17:12] LABS: Glucose,Whole Blood 84 mg/dL (75-99)
[2017-02-10] MEDS: FILGRASTIM-SNDZ 480 MCG/0.8 ML SYRINGE SQ SCH (18:03)
--- NOTE | 2017-02-10 18:52 | PN ---
DATE OF SERVICE: 02/10/2017 PRESENTING COMPLAINT: Weak and tired. INTERVAL HISTORY: This is a 61-year-old female who is status post chemotherapy. Overnight patient had a fever on one episode; however, she did not have any further fevers. Blood cultures are pending. Today patient is somewhat lethargic, lying in bed. She states she feels very tired, does not feel well. Patient remains weak, unmotivated; does not really want to get out of bed today. Review of systems done for constitutional, cardiovascular, GI, pulmonary, with relevant findings as above. CURRENT MEDICATIONS: 1. Tylenol. 2. [place]. 3. Lipitor. 4. Plavix. 5. Neurontin. 6. Lopressor. 7. Ondansetron. 8. Vancomycin. 9. Cefepime. PHYSICAL EXAMINATION: VITAL SIGNS: Temperature 98.1, pulse 65, respiratory rate 20, blood pressure 117/59, oxygen saturation 96% on room air. GENERAL APPEARANCE: Patient is awake, able to answer questions but not real interested in answering questions. Patient states she feels very tired today. She does not feel "good." EYES: Pupils equal. Conjunctivae normal. NECK: JVD not raised. Mass not palpable. LUNGS: Breath sounds diminished bilaterally. Scattered crackles throughout the upper lobes. RESPIRATORY: Effort normal, unlabored. CARDIOVASCULAR: First and second sounds normal. Trace edema noted to bilateral lower extremities. ABDOMEN: Soft, nontender. Liver and spleen not palpable. PSYCHIATRY: Alert and oriented x3. Mood and affect are flat. INVESTIGATIONS: White blood cell count 0.8, hemoglobin 8.2, platelet count 92. ASSESSMENT: 1. Febrile neutropenia. Fever could be the result of the administration of Neupogen, improving. Awaiting infectious workup and blood cultures. 2. Pancytopenia, on chemotherapy. 3. Breast and uterine carcinoma. 4. Chronic systolic congestive heart failure. 5. Medical debility from underlying chemotherapy. 6. Chronic obstructive pulmonary disease in an ex-smoker. 7. Paroxysmal atrial fibrillation. 8. Stage II sacral decubitus ulcer, present on admission. PLAN: Patient remains empirically on antibiotics. ID continues to follow. Awaiting blood cultures. Hematology is recommending physical therapy consult for patient to increase activity and gait training and strengthening. Additionally, Hematology/Oncology will continue with ( ) administration. Patient was seen and examined by nurse practitioner, Dorothea Minaya. All elements of the case were discussed with attending, Dr. Arreaga.
[2017-02-10 20:36] LABS: Glucose,Whole Blood 80 mg/dL (75-99)
--- NOTE | 2017-02-10 20:55 | PN ---
DATE OF SERVICE: 02/09/2017 ATTENDING NOTE: This patient was seen examined by me yesterday on 02/09/17. I reviewed the note of my nurse practitioner Ms. Minaya and discussed with her. Patient presented with pancytopenia following chemotherapy; also had a fever. She was empirically placed on antibiotics. Patient is eating somewhat better, though feels tired, lying in bed. Denies any cough. No urinary symptoms. Patient is on IV cefepime and vancomycin. On examination, temperature 98.5, pulse 50, respiration 16, blood pressure 96/51, pulse ox 98% on room air. GENERAL APPEARANCE: Lying in bed, tired-appearing. RESPIRATORY: Effort increased. LUNGS: Decreased breath sounds. CARDIOVASCULAR: First and second seconds normal. INVESTIGATIONS: White count 0.6, hemoglobin 8.1, platelets 74. ASSESSMENT: 1. Febrile neutropenia. ( ) empirically on antibiotics. 2. Pancytopenia from chemotherapy. PLAN: Continue current medication and treatment plan. Patient is on filgrastim to be started hopefully in the next 24 hours. Antibiotics to continue.
[2017-02-10] MEDS: ATORVASTATIN 40 MG TAB PO SCH (22:19)
--- NOTE | 2017-02-10 22:24 | PN ---
DATE OF SERVICE: 02/10/2017 ATTENDING NOTE: This patient examined by me earlier today. I reviewed the note of my nurse practitioner, Ms. Minaya. Agree with the same. This is a patient admitted with pancytopenia, febrile neutropenia. Did tolerate some diet. Still feels tired. Current medications are reviewed that include IV cefepime, filgrastim and vancomycin. On examination fever of 100.9 last night, blood pressure 117/59. On examination, lungs decreased breath sounds. CARDIOVASCULAR: First and second sounds normal. Minimal edema. PSYCH: Awake, answering questions. INVESTIGATIONS: White count 0.8, hemoglobin 8.2. Urine cultures growing E. coli and Klebsiella Oxytoca. ASSESSMENT: 1. Febrile neutropenia secondary to acute urinary tract infection with urine cultures growing E. coli and Klebsiella Oxytoca. Blood cultures are negative. 2. Pancytopenia on chemotherapy on Filgrastim. 3. Ischemic cardiomyopathy; ejection fraction 35% to 40% from underlying coronary artery disease. 4. Proximal atrial fibrillation. 5. Essential hypertension. 6. Coronary artery disease with prior history of coronary artery bypass. PLAN: Continue current medication and treatment continue with antibiotics. We will discontinue the vancomycin.
[2017-02-10 22:40] VITALS: RESP 16
--- NOTE | 2017-02-10 23:31 | P.PN ---
Subjective Principal diagnosis: Weakness 61-year-old female who is a very extensive recent past medical history. She has underlying known coronary artery disease with a myocardial infarction and CABG. At the time of surgery there is evidence of a left breast mass. Biopsy revealed evidence of breast carcinoma that was locally advanced. There is abnormalities when further imaging was performed to the pelvic lymph nodes. A secondary primary of the uterus was found. The patient was seen by gynecology. Goal was to have preoperative chemotherapy and resection of the cancers. The patient was originally treated with anastrozole but this was stopped and now has been treated with carboplatinum and Taxol. Last cycle she did have significant pancytopenia. Also ill. With the third cycle she again has become quite ill with pancytopenia. Fevers and chills and constantly was brought into hospital. Febrile neutropenia was noted. Overall reported to marked improvement today but is still neutropenic.he does have an appetite and is eating Objective - Vital Signs Vital signs: Vital Signs Temp 98.6 F 02/10/17 22:39 Pulse 68 02/10/17 22:39 Resp 16 02/10/17 22:39 BP 103/51 02/10/17 22:39 Pulse Ox 99 02/10/17 22:39 Intake & Output 02/10/17 02/10/17 02/11/17 06:59 18:59 06:59 Intake Total 1080 300 Balance 1080 300 Weight 72.53 kg 72.53 kg Intake: Intake, IV Titration 300 300 Amount Cefepime 2 gm In Sodium 50 50 Chloride 0.9% 50 ml @ 100 mls/hr IVPB Q12HR [facility] Rx #:[id number] Vancomycin 1,250 mg In 250 250 Sodium Chloride 0.9% 250 ml @ 125 mls/hr IVPB Q16H [facility] Rx#:[id number] Oral 780 Other: Voiding Method Bedside Commode Bedside Commode Urinal Urinal # Voids 1 1 # Bowel Movements 1 - Exam 61 year old woman who appears older than her stated age. Does have some obesity with evidence of weight loss. HEENT: Anicteric conjunctiva are pink and moist nasal mucosa grossly intact without significant lesions, there is no thrush. Poor dentition Neck: The neck is supple without significant lymphadenopathy or thyromegaly. Lungs: Good bilateral air entry without significant crackles wheezes are scattered. There is no significant bronchial sounds. There is no egophony or dullness. Heart: Regular rate and rhythm with an audible S1-S2, no S3 no S4. There is no significant murmur click or rub, PMI was nondisplaced. Abdomen: Obese Positive bowel sounds soft and some tenderness in the lower quadrants. No masses palpable There was no guarding or rebound. Extremities: The upper extremities have excellent pulses they are symmetric, no significant petechiae or telangiectasia. No splinter hemorrhages were noted. The lower extremities are free from significant edema. The peripheral pulses were 2+ and symmetric. Neuro: Arousable less irritable - Labs CBC & Chem 7: 02/10/17 07:54 02/09/17 07:21 Labs: Abnormal Lab Results - Last 24 Hours (Table) 02/10/17 02/10/17 Range/Units 07:54 12:33 WBC 0.8 L* (3.8-10.6) k/uL RBC 2.56 L (3.80-5.40) m/uL Hgb 8.2 L (11.4-16.0) gm/dL Hct 24.2 L (34.0-46.0) % RDW 15.9 H (11.5-15.5) % Plt Count 92 L (150-450) k/uL POC Glucose (mg/dL) 74 L (75-99) mg/dL Microbiology - Last 24 Hours (Table) 02/08/17 17:40 Urine Culture - Final Urine,Voided Escherichia coli Klebsiella oxytoca 02/08/17 15:29 Blood Culture - Preliminary Blood No Growth after 48 hours Laboratory Results WBC 0.8 k/uL (3.8-10.6) L* 02/10/17 07:54 RBC 2.56 m/uL (3.80-5.40) L 02/10/17 07:54 Hgb 8.2 gm/dL (11.4-16.0) L 02/10/17 07:54 Hct 24.2 % (34.0-46.0) L 02/10/17 07:54 MCV 94.7 fL (80.0-100.0) 02/10/17 07:54 MCH 32.1 pg (25.0-35.0) 02/10/17 07:54 MCHC 33.9 g/dL (31.0-37.0) 02/10/17 07:54 RDW 15.9 % (11.5-15.5) H 02/10/17 07:54 Plt Count 92 k/uL (150-450) L 02/10/17 07:54 Neutrophils % 55 % 02/05/17 10:15 Neutrophils % (Manual) 6.0 % 02/08/17 08:35 Band Neutrophils % 1.0 % 02/08/17 08:35 Lymphocytes % 30 % 02/05/17 10:15 Lymphocytes % (Manual) 81.0 % 02/08/17 08:35 Monocytes % 5 % 02/05/17 10:15 Monocytes % (Manual) 7.0 % 02/08/17 08:35 Eosinophils % 10 % 02/05/17 10:15 Eosinophils % (Manual) 5.0 % 02/08/17 08:35 Basophils % 0 % 02/05/17 10:15 Neutrophils # 1.5 k/uL (1.3-7.7) 02/05/17 10:15 Neutrophils # (Manual) 0.1 k/uL (1.3-7.7) L 02/08/17 08:35 Lymphocytes # 0.8 k/uL (1.0-4.8) L 02/05/17 10:15 Lymphocytes # (Manual) 1.0 k/uL (1.0-4.8) 02/08/17 08:35 Monocytes # 0.1 k/uL (0-1.0) 02/05/17 10:15 Monocytes # (Manual) 0.1 k/uL (0-1.0) 02/08/17 08:35 Eosinophils # 0.3 k/uL (0-0.7) 02/05/17 10:15 Eosinophils # (Manual) 0.1 k/uL (0-0.7) 02/08/17 08:35 Basophils # 0.0 k/uL (0-0.2) 02/05/17 10:15 Nucleated RBCs 0 /100 WBC (0-0) 02/08/17 08:35 Differential Comment P 02/10/17 07:54 Manual Slide Review Performed 02/09/17 07:21 Large Platelets Present 02/08/17 08:35 Poikilocytosis (manual Present 02/10/17 07:54 Anisocytosis Slight 02/09/17 07:21 Anisocytosis (manual) Present 02/10/17 07:54 Macrocytosis Slight 02/09/17 07:21 PT 10.7 sec (9.0-12.0) 02/05/17 10:15 INR 1.1 (<1.1) 02/05/17 10:15 APTT 19.2 sec (22.0-30.0) L 02/05/17 10:15 Sodium 138 mmol/L (137-145) 02/09/17 07:21 Potassium 3.9 mmol/L (3.5-5.1) 02/09/17 07:21 Chloride 106 mmol/L (98-107) 02/09/17 07:21 Carbon Dioxide 23 mmol/L (22-30) 02/09/17 07:21 Anion Gap 9 mmol/L 02/09/17 07:21 BUN 17 mg/dL (7-17) 02/09/17 07:21 Creatinine 1.15 mg/dL (0.52-1.04) H 02/09/17 07:21 Est GFR (MDRD) Af Amer 58 (>60 ml/min/1.73 sqM) 02/09/17 07:21 Est GFR (MDRD) Non-Af 48 (>60 ml/min/1.73 sqM) 02/09/17 07:21 Glucose 79 mg/dL (74-99) 02/09/17 07:21 POC Glucose (mg/dL) 80 mg/dL (75-99) 02/10/17 20:16 POC Glu [employer] Of [employer] B[employer]al Morejon 02/10/17 20:16 Calcium 8.1 mg/dL (8.4-10.2) L 02/09/17 07:21 Magnesium 2.0 mg/dL (1.6-2.3) 02/05/17 10:15 Total Bilirubin 1.0 mg/dL (0.2-1.3) 02/05/17 10:15 AST 68 U/L (14-36) H 02/05/17 10:15 ALT 58 U/L (9-52) H 02/05/17 10:15 Alkaline Phosphatase 115 U/L (38-126) 02/05/17 10:15 Total Creatine Kinase 40 U/L (30-135) 02/05/17 10:15 CK-MB (CK-2) 0.8 ng/mL (0.0-2.4) 02/05/17 10:15 CK-MB (CK-2) Rel Index 2.0 02/05/17 10:15 Troponin I <0.012 ng/mL (0.000-0.034) 02/05/17 10:15 Total Protein 6.7 g/dL (6.3-8.2) 02/05/17 10:15 Albumin 3.4 g/dL (3.5-5.0) L 02/05/17 10:15 Urine Color Yellow 02/08/17 17:40 Urine Appearance Cloudy (Clear) H 02/08/17 17:40 Urine pH 5.5 (5.0-8.0) 02/08/17 17:40 Ur Specific [place] 1.008 (1.001-1.035) 02/08/17 17:40 Urine Protein Trace (Negative) H 02/08/17 17:40 Urine Glucose (UA) Negative (Negative) 02/08/17 17:40 Urine Ketones Negative (Negative) 02/08/17 17:40 Urine Blood Negative (Negative) 02/08/17 17:40 Urine Nitrite Positive (Negative) H 02/08/17 17:40 Urine Bilirubin Negative (Negative) 02/08/17 17:40 Urine Urobilinogen <2.0 mg/dL (<2.0) 02/08/17 17:40 Ur Leukocyte Esterase Negative (Negative) 02/08/17 17:40 Urine RBC 1 /hpf (0-5) 02/08/17 17:40 Urine WBC 3 /hpf (0-5) 02/08/17 17:40 Ur Squamous Epith Cells 10 /hpf (0-4) H 02/08/17 17:40 Urine Bacteria Many /hpf (None) H 02/08/17 17:40 Urine Mucus Rare /hpf (None) H 02/08/17 17:40 Blood Type A Positive 02/07/17 10:07 Blood Type Recheck No 02/07/17 10:07 Antibody Screen NEGATIVE 02/07/17 10:07 Crossmatch See Detail 02/07/17 10:07 Spec Expiration Date 02/10/2017230602/07/17 10:07 Microbiology 02/08/17 17:40 Urine,Voided Urine Culture - Final Escherichia coli Klebsiella oxytoca 02/08/17 15:29 Blood Blood Culture - Preliminary No Growth after 48 hours Assessment and Plan (1) Febrile neutropenia Narrative/Plan: 61-year-old woman who has a history of breast carcinoma as well as uterine cancer who is undergoing neoadjuvant chemotherapy at this point in time. Has developed febrile neutropenia and pancytopenia. She is quite ill at this point in time requiring transfusion. There was a concern she may have had a seizure neurology is seeing but so far no evidence of seizures and she's been admitted. With the neutropenia and mucositis antibiotic therapy with cefepime and vancomycin has been initiated. She is still able to eat at this point in time. If she does not improve antifungal therapy will be initiated. Albumin is low and will need protein supplementation as she recovers to help her with her overall recovery Blood and urine cultures are pending and will further help direct antibiotic therapy in the future. High-grade fevers have resolved. Is improved and mentation is improved also noted. Antimicrobial therapy continues for now. Status: Acute
[2017-02-11] MEDS ORDERED: VANCOMYCIN TROUGH DUE 1 EACH MISC MISCELLANE ONE (05:00)
[2017-02-11 05:56] LABS: Aty Lym Flag Slight; CH 31.9; CHCM 34.5; HCT 23.8 % (34.0-46.0); HGB 8.3 gm/dL (11.4-16.0); Immature Gran Flag Marked; MCH 32.4 pg (25.0-35.0); MCV 92.7 fL (80.0-100.0); Mean Platelet Volume 8.7; Poikilocytosis Slight; RBC 2.57 m/uL (3.80-5.40); RDW 15.8 % (11.5-15.5); WBC 2.7 k/uL (3.8-10.6)
[2017-02-11 06:20] LABS: Anion Gap 8 mmol/L; Blood Urea Nitrogen 13 mg/dL (7-17); Calcium 7.9 mg/dL (8.4-10.2); Carbon Dioxide 22 mmol/L (22-30); Chloride 106 mmol/L (98-107); Glucose 73 mg/dL (74-99); Non-African American GFR(MDRD) 50 (>60 ml/min/1.73 sqM); Potassium 3.2 mmol/L (3.5-5.1); Sodium 136 mmol/L (137-145)
[2017-02-11 06:21] LABS: Add Differential Manual Differential
[2017-02-11 06:59] LABS: Nucleated Red Blood Cells 0 /100 WBC (0-0); Total Cells Counted 200
[2017-02-11 07:00] LABS: Manual Review Performed
[2017-02-11 08:07] LABS: Glucose,Whole Blood 73 mg/dL (75-99)
[2017-02-11] MEDS: MAGNESIUM OXIDE 400 MG TAB PO SCH (08:59)
[2017-02-11] MEDS: GABAPENTIN 100 MG CAP PO SCH (08:59)
[2017-02-11] MEDS: CLOPIDOGREL 75 MG TAB PO SCH (08:59)
[2017-02-11] MEDS: METOPROLOL TARTRATE 25 MG TAB PO SCH ×2 (08:59→22:01)
[2017-02-11] MEDS: AMIODARONE 200 MG TAB PO SCH (08:59)
[2017-02-11] MEDS: ASPIRIN 81 MG CHEW PO SCH (08:59)
[2017-02-11] MEDS: FAMOTIDINE 20 MG TAB PO SCH (08:59)
[2017-02-11] MEDS: CEFEPIME 2 GM in SODIUM CHLORIDE 0.9% 50 ML IVPB SCH ×2 (09:00→22:00)
[2017-02-11] MEDS: FILGRASTIM-SNDZ 480 MCG/0.8 ML SYRINGE SQ SCH (10:31)
[2017-02-11 12:49] LABS: Glucose,Whole Blood 78 mg/dL (75-99)
--- NOTE | 2017-02-11 15:24 | P.PN ---
Subjective Principal diagnosis: Weakness 61-year-old female who is a very extensive recent past medical history. She has underlying known coronary artery disease with a myocardial infarction and CABG. At the time of surgery there is evidence of a left breast mass. Biopsy revealed evidence of breast carcinoma that was locally advanced. There is abnormalities when further imaging was performed to the pelvic lymph nodes. A secondary primary of the uterus was found. The patient was seen by gynecology. Goal was to have preoperative chemotherapy and resection of the cancers. The patient was originally treated with anastrozole but this was stopped and now has been treated with carboplatinum and Taxol. Last cycle she did have significant pancytopenia. Also ill. With the third cycle she again has become quite ill with pancytopenia. Fevers and chills and constantly was brought into hospital. Febrile neutropenia was noted. Patient is improving. Was feeling a bit stronger today. However when she was up with the aid she did lose her balance. Objective - Vital Signs Vital signs: Vital Signs Temp 98.1 F 02/11/17 08:00 Pulse 69 02/11/17 08:58 Resp 16 02/11/17 08:00 BP 113/57 02/11/17 08:58 Pulse Ox 96 02/11/17 08:00 Intake & Output 02/10/17 02/11/17 02/11/17 18:59 06:59 18:59 Intake Total 300 Balance 300 Weight 72.53 kg 74.5 kg Intake: Intake, IV Titration 300 Amount Cefepime 2 gm In Sodium 50 Chloride 0.9% 50 ml @ 100 mls/hr IVPB Q12HR [facility] Rx #:[id number] Vancomycin 1,250 mg In 250 Sodium Chloride 0.9% 250 ml @ 125 mls/hr IVPB Q16H [facility] Rx#:[id number] Other: Voiding Method Bedside Commode Bedside Commode Bedside Commode Urinal Diaper Diaper Incontinent Incontinent # Voids 1 # Bowel Movements 1 - Exam 61 year old woman who appears older than her stated age. Does have some obesity with evidence of weight loss. HEENT: Anicteric conjunctiva are pink and moist nasal mucosa grossly intact without significant lesions, there is no thrush. Poor dentition Neck: The neck is supple without significant lymphadenopathy or thyromegaly. Lungs: Good bilateral air entry without significant crackles wheezes are scattered. There is no significant bronchial sounds. There is no egophony or dullness. Heart: Regular rate and rhythm with an audible S1-S2, no S3 no S4. There is no significant murmur click or rub, PMI was nondisplaced. Abdomen: Obese Positive bowel sounds soft and some tenderness in the lower quadrants. No masses palpable There was no guarding or rebound. Extremities: The upper extremities have excellent pulses they are symmetric, no significant petechiae or telangiectasia. No splinter hemorrhages were noted. The lower extremities are free from significant edema. The peripheral pulses were 2+ and symmetric. Neuro: Arousable less irritable - Labs CBC & Chem 7: 02/11/17 05:21 02/11/17 05:21 Labs: Abnormal Lab Results - Last 24 Hours (Table) 02/11/17 02/11/17 02/11/17 Range/Units 05: 05:21 07:55 WBC 2.7 L (3.8-10.6) k/uL RBC 2.57 L (3.80-5.40) m/uL Hgb 8.3 L (11.4-16.0) gm/dL Hct 23.8 L (34.0-46.0) % RDW 15.8 H (11.5-15.5) % Plt Count 101 L (150-450) k/uL Lymphocytes # (Manual) 0.6 L (1.0-4.8) k/uL Sodium 136 L (137-145) mmol/L Potassium 3.2 L (3.5-5.1) mmol/L Creatinine 1.10 H (0.52-1.04) mg/dL Glucose 73 L (74-99) mg/dL POC Glucose (mg/dL) 73 L (75-99) mg/dL Calcium 7.9 L (8.4-10.2) mg/dL Microbiology - Last 24 Hours (Table) 02/08/17 17:40 Urine Culture - Final Urine,Voided Escherichia coli Klebsiella oxytoca 02/08/17 15:29 Blood Culture - Preliminary Blood No Growth after 48 hours Laboratory Results WBC 2.7 k/uL (3.8-10.6) L 02/11/17 05:21 RBC 2.57 m/uL (3.80-5.40) L 02/11/17 05:21 Hgb 8.3 gm/dL (11.4-16.0) L 02/11/17 05:21 Hct 23.8 % (34.0-46.0) L 02/11/17 05:21 MCV 92.7 fL (80.0-100.0) 02/11/17 05:21 MCH 32.4 pg (25.0-35.0) 02/11/17 05:21 MCHC 35.0 g/dL (31.0-37.0) 02/11/17 05:21 RDW 15.8 % (11.5-15.5) H 02/11/17 05:21 Plt Count 101 k/uL (150-450) L 02/11/17 05:21 Neutrophils % [employer] TE[employer]ER 02/11/17 05:21 Neutrophils % (Manual) 36.0 % 02/11/17 05:21 Band Neutrophils % 20.0 % 02/11/17 05:21 Lymphocytes % [employer] TE[employer]ER 02/11/17 05:21 Lymphocytes % (Manual) 22.0 % 02/11/17 05:21 Monocytes % [employer] TE[employer]ER 02/11/17 05:21 Monocytes % (Manual) 15.0 % 02/11/17 05:21 Eosinophils % [employer] TE[employer]ER 02/11/17 05:21 Eosinophils % (Manual) 2.0 % 02/11/17 05:21 Basophils % [employer] TE[employer]ER 02/11/17 05:21 Metamyelocytes % 5.0 % 02/11/17 05:21 Neutrophils # [employer] TEACHER 02/11/17 05:21 Neutrophils # (Manual) 1.5 k/uL (1.3-7.7) 02/11/17 05:21 Lymphocytes # [employer] TE[employer]ER 02/11/17 05:21 Lymphocytes # (Manual) 0.6 k/uL (1.0-4.8) L 02/11/17 05:21 Monocytes # [employer] TE[employer]ER 02/11/17 05:21 Monocytes # (Manual) 0.4 k/uL (0-1.0) 02/11/17 05:21 Eosinophils # [employer] TE[employer]ER 02/11/17 05:21 Eosinophils # (Manual) 0.1 k/uL (0-0.7) 02/11/17 05:21 Basophils # [employer] TE[employer]ER 02/11/17 05:21 Nucleated RBCs 0 /100 WBC (0-0) 02/11/17 05:21 Differential Comment P 02/10/17 07:54 Manual Slide Review Performed 02/11/17 05:21 Large Platelets Present 02/08/17 08:35 Poikilocytosis Slight 02/11/17 05:21 Poikilocytosis (manual Present 02/11/17 05:21 Anisocytosis Slight 02/09/17 07:21 Anisocytosis (manual) Present 02/11/17 05:21 Macrocytosis Slight 02/09/17 07:21 PT 10.7 sec (9.0-12.0) 02/05/17 10:15 INR 1.1 (<1.1) 02/05/17 10:15 APTT 19.2 sec (22.0-30.0) L 02/05/17 10:15 Sodium 136 mmol/L (137-145) L 02/11/17 05:21 Potassium 3.2 mmol/L (3.5-5.1) L 02/11/17 05:21 Chloride 106 mmol/L (98-107) 02/11/17 05:21 Carbon Dioxide 22 mmol/L (22-30) 02/11/17 05:21 Anion Gap 8 mmol/L 02/11/17 05:21 BUN 13 mg/dL (7-17) 02/11/17 05:21 Creatinine 1.10 mg/dL (0.52-1.04) H 02/11/17 05:21 Est GFR (MDRD) Af Amer >60 (>60 ml/min/1.73 sqM) 02/11/17 05:21 Est GFR (MDRD) Non-Af 50 (>60 ml/min/1.73 sqM) 02/11/17 05:21 Glucose 73 mg/dL (74-99) L 02/11/17 05:21 POC Glucose (mg/dL) 78 mg/dL (75-99) 02/11/17 12:26 POC Glu Ethylbenzene Oxidizer ID Madhu Hawkins 02/11/17 12:26 Calcium 7.9 mg/dL (8.4-10.2) L 02/11/17 05:21 Magnesium 2.0 mg/dL (1.6-2.3) 02/05/17 10:15 Total Bilirubin 1.0 mg/dL (0.2-1.3) 02/05/17 10:15 AST 68 U/L (14-36) H 02/05/17 10:15 ALT 58 U/L (9-52) H 02/05/17 10:15 Alkaline Phosphatase 115 U/L (38-126) 02/05/17 10:15 Total Creatine Kinase 40 U/L (30-135) 02/05/17 10:15 CK-MB (CK-2) 0.8 ng/mL (0.0-2.4) 02/05/17 10:15 CK-MB (CK-2) Rel Index 2.0 02/05/17 10:15 Troponin I <0.012 ng/mL (0.000-0.034) 02/05/17 10:15 Total Protein 6.7 g/dL (6.3-8.2) 02/05/17 10:15 Albumin 3.4 g/dL (3.5-5.0) L 02/05/17 10:15 Urine Color Yellow 02/08/17 17:40 Urine Appearance Cloudy (Clear) H 02/08/17 17:40 Urine pH 5.5 (5.0-8.0) 02/08/17 17:40 Ur Specific [place] 1.008 (1.001-1.035) 02/08/17 17:40 Urine Protein Trace (Negative) H 02/08/17 17:40 Urine Glucose (UA) Negative (Negative) 02/08/17 17:40 Urine Ketones Negative (Negative) 02/08/17 17:40 Urine Blood Negative (Negative) 02/08/17 17:40 Urine Nitrite Positive (Negative) H 02/08/17 17:40 Urine Bilirubin Negative (Negative) 02/08/17 17:40 Urine Urobilinogen <2.0 mg/dL (<2.0) 02/08/17 17:40 Ur Leukocyte Esterase Negative (Negative) 02/08/17 17:40 Urine RBC 1 /hpf (0-5) 02/08/17 17:40 Urine WBC 3 /hpf (0-5) 02/08/17 17:40 Ur Squamous Epith Cells 10 /hpf (0-4) H 02/08/17 17:40 Urine Bacteria Many /hpf (None) H 02/08/17 17:40 Urine Mucus Rare /hpf (None) H 02/08/17 17:40 Vancomycin Trough 29.3 ug/mL 02/11/17 05:21 C. difficile (EIA) Intrp Negative (Negative) 02/11/17 00:41 Blood Type A Positive 02/07/17 10:07 Blood Type Recheck No 02/07/17 10:07 Antibody Screen NEGATIVE 02/07/17 10:07 Crossmatch See Detail 02/07/17 10:07 Spec Expiration Date 02/10/2017 - 230602/07/17 10:07 Microbiology 02/08/17 17:40 Urine,Voided Urine Culture - Final Escherichia coli Klebsiella oxytoca 02/08/17 15:29 Blood Blood Culture - Preliminary No Growth after 48 hours Assessment and Plan (1) Febrile neutropenia Narrative/Plan: 61-year-old woman who has a history of breast carcinoma as well as uterine cancer who is undergoing neoadjuvant chemotherapy at this point in time. Has developed febrile neutropenia and pancytopenia. She is quite ill at this point in time requiring transfusion. There was a concern she may have had a seizure neurology is seeing but so far no evidence of seizures and she's been admitted. With the neutropenia and mucositis antibiotic therapy with cefepime and vancomycin has been initiated. She is still able to eat at this point in time. If she does not improve antifungal therapy will be initiated. Albumin is low and will need protein supplementation as she recovers to help her with her overall recovery Blood and urine cultures are pending and will further help direct antibiotic therapy in the future. High-grade fevers have resolved. Mentation is improved and closer to baseline. Her granddaughter is here with one of her caretakers and agrees. Patient did have some weakness today upon attempting to transfer. No injuries noted. She does have a white count of 2.7 today. Showing some resolution of her significant neutropenia. Her white blood cell count remains elevated tomorrow out of the neutropenic range. She was then have her antibiotic therapy altered to oral Levaquin to complete 10 days of therapy for her recent urinary infection with E. coli and Klebsiella oxytoca Status: Acute
[2017-02-11 17:54] LABS: Glucose,Whole Blood 76 mg/dL (75-99)
--- NOTE | 2017-02-11 18:51 | PN ---
DATE OF SERVICE: 02/11/2017 PRESENTING COMPLAINT: Weak and tired. INTERVAL HISTORY: This is a patient who is status post chemotherapy. Overnight patient had no episodes of fever. Today patient is awake, alert, sitting up in bed, eating her breakfast. States she feels better than she did yesterday. Reviews review of systems done for constitutional, cardiovascular, GI, pulmonary with relevant findings as above. CURRENT MEDICATIONS: Tylenol, Saxon Lipitor, Plavix, Neurontin, Lopressor, ondansetron, cefepime. PHYSICAL EXAMINATION: VITAL SIGNS: Temperature 98.1, pulse 65, respirations 16, oxygen saturation 96% on room air. Blood pressure 113/57. GENERAL APPEARANCE: Patient is sitting up in bed eating her breakfast. EYES: Pupils equal. Conjunctivae normal. NECK: JVD not raised. Mass not palpable. LUNGS: Diminished bilaterally. RESPIRATORY: Effort normal. CARDIOVASCULAR: First and second sounds normal. No edema. ABDOMEN: Soft, nontender. Liver and spleen not palpable. PSYCHIATRY: Alert and oriented x3. Mood and affect are normal. INVESTIGATIONS: White blood cell count 2.7, hemoglobin 8.3, platelet count 101, sodium 136, potassium 3.2, BUN 13, creatinine 1.1. ASSESSMENT: 1. Febrile neutropenia. Fever could be the result of administration of Neupogen, improving. 2. Pancytopenia on chemotherapy. 3. Breast and uterine carcinoma. 4. Chronic systolic congestive heart failure. 5. Medical debility from underlying chemotherapy. 6. Chronic obstructive pulmonary disease in an ex-smoker. 7. Paroxysmal atrial fibrillation. 8. Stage II sacral decubitus ulcer present on admission. PLAN: Patient remains on antibiotics per ID recommendations. Physical therapy is also following for gait training and strengthening. Will continue with current treatment plan regimen and medication regimen. Patient was seen and examined by nurse practitioner, Dortohea Minaya, and all of the elements of the case were discussed with attending, Dr. Arreaga.
[2017-02-11 21:40] LABS: Glucose,Whole Blood 79 mg/dL (75-99)
[2017-02-11] MEDS: ATORVASTATIN 40 MG TAB PO SCH (22:01)
--- NOTE | 2017-02-11 22:37 | P.PN ---
Subjective Pt feels stronger, though she is still weak overall. Fever pattern is improved. No n/v Objective - Vital Signs Vital signs: Vital Signs Temp 97.8 F 02/11/17 15:00 Pulse 64 02/11/17 16:00 Resp 16 02/11/17 16:00 BP 94/54 02/11/17 15:00 Pulse Ox 100 02/11/17 15:00 Intake & Output 02/11/17 02/11/17 02/12/17 06:59 18:59 06:59 Weight 74.5 kg Other: Voiding Method Bedside Commode Bedside Commode Diaper Diaper Incontinent Incontinent # Voids 1 2 # Bowel Movements 1 1 - Constitutional General appearance: Present: no acute distress - EENT Eyes: Present: EOMI, PERRLA ENT: Present: hearing grossly normal, normal oropharynx - Respiratory Respiratory: bilateral: CTA - Cardiovascular Rhythm: regular Heart sounds: normal: S1, S2 - Gastrointestinal General gastrointestinal: Present: normal bowel sounds, soft - Integumentary Integumentary: Present: normal - Musculoskeletal Musculoskeletal: Present: generalized weakness, strength equal bilaterally - Psychiatric Psychiatric: Present: A&O x's 3, appropriate affect - Labs CBC & Chem 7: 02/11/17 05:21 02/11/17 05:21 Labs: Abnormal Lab Results - Last 24 Hours (Table) 02/11/17 02/11/17 02/11/17 Range/Units 05:21 05:21 07:55 WBC 2.7 L (3.8-10.6) k/uL RBC 2.57 L (3.80-5.40) m/uL Hgb 8.3 L (11.4-16.0) gm/dL Hct 23.8 L (34.0-46.0) % RDW 15.8 H (11.5-15.5) % Plt Count 101 L (150-450) k/uL Lymphocytes # (Manual) 0.6 L (1.0-4.8) k/uL Sodium 136 L (137-145) mmol/L Potassium 3.2 L (3.5-5.1) mmol/L Creatinine 1.10 H (0.52-1.04) mg/dL Glucose 73 L (74-99) mg/dL POC Glucose (mg/dL) 73 L (75-99) mg/dL Calcium 7.9 L (8.4-10.2) mg/dL Microbiology - Last 24 Hours (Table) 02/08/17 15:29 Blood Culture - Preliminary Blood No Growth after 72 hours 02/08/17 17:40 Urine Culture - Final Urine,Voided Escherichia coli Klebsiella oxytoca Assessment and Plan (1) Generalized weakness Narrative/Plan: This is improving, though her activity level remains quite low. She was strongly urged to increase her activity, work with PT, and do ROM exercises in bed Status: Acute (2) Pancytopenia Narrative/Plan: Hgb and plt are stable. WBC has increased to 2.7, with ANC > 1000. Continue to monitor. Continue G-CSF for now Status: Acute (3) Febrile neutropenia Narrative/Plan: Fever pattern has improved. Neutropenia is resolving, with ANC now > 1000. Urine C/s was positive for E coli and Klebsiella. ID is following and pt has been continued on Cefepime with Vanco stopped. The plan is to switch her to PO levaquin subsequently Status: Acute
--- NOTE | 2017-02-12 07:20 | PN ---
DATE OF SERVICE: 02/11/2017 ATTENDING NOTE: Patient was seen and examined earlier today. I reviewed the note of my nurse practitioner, Ms. Minaya and discussed with her. Patient is status post chemotherapy and febrile neutropenia. Source for urine, found to be UTI. Actually doing much better. Still a bit tired. On examination, afebrile, blood pressure 103/57. RESPIRATORY: Effort normal. LUNGS: Decreased breath sounds. CARDIOVASCULAR: First and second sounds. PSYCH: Awake, answering questions. Granddaughter is at the bedside. INVESTIGATIONS: White count 2.7. Hemoglobin 8.3, potassium 3.2. ASSESSMENT: 1. Febrile neutropenia with urinary tract infection growing Escherichia coli and Klebsiella oxytoca. Blood cultures remain negative. 2. Pancytopenia on chemotherapy responding to ( ). PLAN: Overall doing better. Vancomycin discontinued yesterday. Patient is afebrile, can be switched over to oral antibiotic tomorrow. Follow.
[2017-02-12 07:52] LABS: Anisocytosis Slight; CH 31.4; CHCM 33.2; HCT 23.4 % (34.0-46.0); HDW 3.37; HGB 7.7 gm/dL (11.4-16.0); Immature Gran Flag Moderate; MCH 31.2 pg (25.0-35.0); MCHC 32.9 g/dL (31.0-37.0); MCV 95.1 fL (80.0-100.0); Mean Platelet Volume 8.4; RBC 2.46 m/uL (3.80-5.40); RDW 16.3 % (11.5-15.5)
[2017-02-12 08:00] LABS: Glucose,Whole Blood 75 mg/dL (75-99)
[2017-02-12 08:39] LABS: Calcium 7.8 mg/dL (8.4-10.2); Potassium 3.3 mmol/L (3.5-5.1)
[2017-02-12 08:42] LABS: Add Differential Manual Differential
[2017-02-12 08:46] LABS: Band Neutrophils % 6.5 %; Manual Review Performed; Myelocytes % 0.5 %; Nucleated Red Blood Cells 0 /100 WBC (0-0); Total Cells Counted 200
[2017-02-12 08:47] LABS: Toxic Granulation Present
[2017-02-12] MEDS: GABAPENTIN 100 MG CAP PO SCH (09:28)
[2017-02-12] MEDS ORDERED: ASPIRIN 81 MG CHEW ONE (09:28)
[2017-02-12] MEDS ORDERED: AMIODARONE 200 MG TAB ONE (09:28)
[2017-02-12] MEDS: ASPIRIN 81 MG CHEW PO SCH (09:28)
[2017-02-12] MEDS ORDERED: CLOPIDOGREL 75 MG TAB ONE (09:28)
[2017-02-12] MEDS ORDERED: MAGNESIUM OXIDE 400 MG TAB ONE (09:28)
[2017-02-12] MEDS: CLOPIDOGREL 75 MG TAB PO SCH (09:28)
[2017-02-12] MEDS: MAGNESIUM OXIDE 400 MG TAB PO SCH (09:28)
[2017-02-12] MEDS ORDERED: SODIUM CHLORIDE 0.9% 50 ML BAG ONE (09:28)
[2017-02-12] MEDS ORDERED: METOPROLOL TARTRATE 25 MG TAB ONE (09:28)
[2017-02-12] MEDS: METOPROLOL TARTRATE 25 MG TAB PO SCH (09:28)
[2017-02-12] MEDS ORDERED: GABAPENTIN 100 MG CAP ONE (09:28)
[2017-02-12] MEDS ORDERED: CEFEPIME 2 GM VIAL IVPB ONE (09:28)
[2017-02-12] MEDS ORDERED: FAMOTIDINE 20 MG TAB ONE (09:28)
[2017-02-12] MEDS: AMIODARONE 200 MG TAB PO SCH (09:28)
[2017-02-12] MEDS: CEFEPIME 2 GM in SODIUM CHLORIDE 0.9% 50 ML IVPB SCH (09:29)
[2017-02-12] MEDS: FAMOTIDINE 20 MG TAB PO SCH (09:29)
[2017-02-12 12:02] LABS: Glucose,Whole Blood 95 mg/dL (75-99)
[2017-02-12 16:05] VITALS: PULSE 69
[2017-02-12 17:27] VITALS: BP 94/56; TEMP 98.2
--- NOTE | 2017-02-14 10:05 | DS ---
DATE OF ADMISSION: 02/05/2017 DATE OF DISCHARGE: 02/12/2017 FINAL DIAGNOSES: 1. Febrile neutropenia from underlying urinary tract infection from Escherichia coli and Klebsiella oxytoca. 2. General medical debility from the ( ) chemotherapy. 3. Breast cancer, uterine cancer, adenocarcinoma, status post chemotherapy. 4. Chronic obstructive pulmonary disease in an ex-smoker. 5. Essential hypertension. 6. Coronary artery disease with prior history of coronary artery bypass. 7. Ischemic cardiomyopathy; ejection fraction 35% to 40%, underlying coronary artery disease. 8. Pancytopenia from chemotherapy. 9. Paroxysmal atrial fibrillation. 10. Stage II sacral decubitus ulcer, present on admission. HOSPITAL COURSE: This patient was getting chemotherapy, presented weak, tired, and picked up a fever. Urine culture did come back positive as above. Doing better by the time of discharge, tolerating a diet and doing better. Overall prognosis is guarded because of underlying malignancy. Care was discussed with the patient and ( ) at the bedside. CONSULTATION: 1. Dr. Cervantes from Oncology. 2. Dr. Payton from Infectious Disease. Patient's white count was 12. Hemoglobin 7.7, platelets 116 by the time of discharge. DISCHARGE MEDICATIONS: 1. Cordarone 200 mg a day. 2. Plavix 75 mg a day. 3. Lopressor 25 mg p.o. b.i.d. 4. Lipitor 40 mg q.h.s. 5. Aspirin 81 mg a day. 6. Vitamin D2 fifty thousand units on . 7. Magnesium oxide 400 mg p.o. daily. 8. Zofran 8 mg p.o. q.8 p.r.n. 9. Pepcid 20 mg b.i.d. 10. Neurontin 100 mg p.o. daily. 11. [place] 5 one tablet q.6 p.r.n. 12. Levaquin 500 mg a day for [address] Cervantes and 02/24/2017. Follow with Dr. Paredes in 1 week. CBC, BMP in 3 to 5 days. Patient also arranged for a PET scan 02/18/2017.
--- NOTE | 2017-03-16 22:38 | PN ---
DATE OF SERVICE: 02/07/2017 PRESENTING COMPLAINT: Weak and tired. INTERVAL HISTORY: This is a patient with multiple problems, including getting chemotherapy. She presents with feeling weak and tired, eating small amounts. Patient did drop her hemoglobin and white count. Granddaughter is at the bedside. Review of systems done for constitutional, cardiovascular, GI, pulmonary; relevant findings as above. Current medications are reviewed. On examination, temperature 97.6, pulse 58, respiration 16, blood pressure 132/61, pulse ox 98% on room air. GENERAL APPEARANCE: Lying in bed, tired-appearing. EYES: Pupils equal. Conjunctivae pale. NECK: JVD not raised. Mass not palpable. RESPIRATORY: Effort normal. LUNGS: Decreased breath sounds. CARDIOVASCULAR: First and second sounds normal. Minimal edema. ABDOMEN: Soft, nontender. Liver and spleen not palpable. PSYCHIATRY: Awake. Alert and oriented x3. Mood and affect low-appearing. Generalized weakness is present. INVESTIGATIONS: White count 0.6, hemoglobin 6.9, platelets 79. Potassium 4.0. BUN 15, creatinine 1.10. ASSESSMENT: 1. Severe medical debility from underlying chemotherapy and ( ) cancer. 2. Breast cancer, uterine cancer, adenocarcinoma, status post chemotherapy. 3. Chronic obstructive pulmonary disease in an ex-smoker. 4. Essential hypertension. 5. Coronary artery disease with prior history of coronary artery bypass. 6. Ischemic cardiomyopathy; ejection fraction 35% to 40%, underlying coronary artery disease. 7. Pancytopenia, on chemotherapy. 8. Paroxysmal atrial fibrillation. 9. Stage II sacral decubitus ulcer, present on admission. PLAN: Patient will be started on white cell stimulant per Oncology. Will also be transfused blood. Care was discussed with the patient and granddaughter at the bedside. Will follow.
== END 2017-02-12 17:40 | disposition home health service (06) | DRG 689 ==
LOC: EC 09:29 → 5MS5E 11:33 → 5ONC 15:43
PROVIDERS: ADMIT Hospitalist; ATTEND Hospitalist
PROC: 30233N1 Transfusion of Nonautologous Red Blood Cells into Peripheral Vein, Percutaneous Approach (ICD-10-PCS; principal; 2017-02-07)
DX: N39.0 Urinary tract infection, site not specified (principal); D61.810 Antineoplastic chemotherapy induced pancytopenia; N17.9 Acute kidney failure, unspecified; I50.22 Chronic systolic (congestive) heart failure; L89.152 Pressure ulcer of sacral region, stage 2; I11.0 Hypertensive heart disease with heart failure; B96.20 Unspecified Escherichia coli [E. coli] as the cause of diseases classified elsewhere; C50.911 Malignant neoplasm of unspecified site of right female breast; B96.89 Other specified bacterial agents as the cause of diseases classified elsewhere; C54.1 Malignant neoplasm of endometrium; G62.0 Drug-induced polyneuropathy; I48.0 Paroxysmal atrial fibrillation; E11.9 Type 2 diabetes mellitus without complications; R50.81 Fever presenting with conditions classified elsewhere; T45.8X5A Adverse effect of other primarily systemic and hematological agents, initial encounter; E78.5 Hyperlipidemia, unspecified; I25.10 Atherosclerotic heart disease of native coronary artery without angina pectoris; I25.2 Old myocardial infarction; I25.5 Ischemic cardiomyopathy; K12.30 Oral mucositis (ulcerative), unspecified; E66.9 Obesity, unspecified; K02.9 Dental caries, unspecified; J44.9 Chronic obstructive pulmonary disease, unspecified; R56.9 Unspecified convulsions; I65.21 Occlusion and stenosis of right carotid artery; R29.6 Repeated falls; R32 Unspecified urinary incontinence; T45.1X5A Adverse effect of antineoplastic and immunosuppressive drugs, initial encounter; Z17.0 Estrogen receptor positive status [ER+]; Z79.02 Long term (current) use of antithrombotics/antiplatelets; Z79.811 Long term (current) use of aromatase inhibitors; Z79.82 Long term (current) use of aspirin; Z79.899 Other long term (current) drug therapy; Z95.1 Presence of aortocoronary bypass graft; Z87.891 Personal history of nicotine dependence; Z82.49 Family history of ischemic heart disease and other diseases of the circulatory system; W05.0XXA Fall from non-moving wheelchair, initial encounter; Y92.009 Unspecified place in unspecified non-institutional (private) residence as the place of occurrence of the external cause
CPT/HCPCS: 36415; 71020; 80048; 80053; 80202; 81001; 82550; 82553; 83735; 84484; 85025; 85610; 85730; 86850; 86900; 86901; 86920; 87040; 87077; 87086; 87186; 87324; 93005; 94760; 96360; 96361; 99285

== ENCOUNTER → 2017-02-18 | Outpatient (CLI) | payer OTHER ==
--- NOTE | 2017-02-21 10:49 | PE ---
Nuclear medicine PET/CT HISTORY: Breast carcinoma Patient received 13.4 mCi F-18 FDG intravenously and delayed scanning was performed from the skull ba se through the mid thighs. Localization and attenuation correction CT scan was also performed. Correlation to prior CT abdomen pelvis 09 January 2017, prior nuclear medicine PET/CT third of August 2016 Neck and chest: There is no adenopathy. Patient is post median sternotomy. Coronary artery calcificat ions are present. Right breast shows a soft tissue mass with associated mild hypermetabolic uptake me asuring 2.8 cm., SUV is 2 which is decreased from 3.4. No internal mammary adenopathy. Pulmonary nodu le in the right lower lobe on axial image 99 measures only approximately 4 mm and shows no associated hypermetabolic uptake Abdomen pelvis: No retroperitoneal adenopathy. No adrenal or liver mass evident, the uterus show incr eased uptake SUV 13. Left inguinal node is not enlarged but shows some mild increased uptake SUV 1.7. Right inguinal mass is present measuring approximately 4.4 cm in greatest dimension and has develope d in the interval, SUV 2.6. Retroperitoneal adenopathy shows interval development of calcification on the left, the node is decreased in size. Aortic caval node on the right is also decreased in size, S UV approximately 3. Iliac adenopathy has normalized in size, mild hypermetabolic uptake on the left s hows SUV 3.3 Osseous structures: Anterior left sixth rib shows SUV 3.9. This may be related to a fracture, correla te for tenderness, appropriate history Degenerative disc changes are present in the lower lumbar spin e, there is associated facet arthropathy. Uptake noted at the superior aspect of the sternotomy site. IMPRESSION: 1.Findings compatible with patient's history of right breast carcinoma. There has been some interval improvement in retroperitoneal and iliac adenopathy. 2. Indeterminate right groin node is suspected which is developed in the interval. Abnormal hypermeta bolic uptake within the uterus, suggest RN TRAVEL consult. 3. Findings along the anterior left rib as described. Correlate for history of trauma.
== END | disposition home or self-care (01) ==
LOC: RADPETMAIN 09:45
PROVIDERS: ATTEND Internal Medicine Hematology & Oncology
DX: C50.211 Malignant neoplasm of upper-inner quadrant of right female breast (principal); R59.9 Enlarged lymph nodes, unspecified; N85.8 Other specified noninflammatory disorders of uterus; R93.5 Abnormal findings on diagnostic imaging of other abdominal regions, including retroperitoneum; Z98.890 Other specified postprocedural states
CPT/HCPCS: 78815; A9552

== ENCOUNTER 2017-03-02 12:58 | Inpatient (IN) | payer OTHER ==
[2017-03-02] MEDS ORDERED: SODIUM CHLORIDE 0.9% 500 ML IV STA (13:57)
--- NOTE | 2017-03-02 14:01 | ED ---
General Adult HPI - General Chief complaint: Weakness Stated complaint: Low blood pressure Time Seen by Provider: 03/02/17 13:43 Source: patient, EMS, RN notes reviewed Mode of arrival: EMS Limitations: altered mental status - History of Present Illness Initial comments: Patient is a pleasant 61-year-old female presenting to the emergency department with complaints of weakness. Patient has known breast and uterus cancer and is on chemotherapy, last was a couple weeks ago. Today patient admits to not feeling well. Patient feels drowsy and weak all over. Otherwise no specific complaints. EMS did report low blood pressure. - Related Data Home Medications Medication Instructions Recorded Confirmed Atorvastatin [Lipitor] 40 mg PO HS 08/16/16 03/02/17 Ergocalciferol (Vitamin D2) 50,000 unit PO TH 01/09/17 03/02/17 [Vitamin D2] Magnesium Oxide [Mag-Ox] 400 mg PO DAILY 01/09/17 03/02/17 Ondansetron HCl [Zofran] 8 mg PO Q8H PRN 01/09/17 03/02/17 Gabapentin [Neurontin] 100 mg PO DAILY 02/05/17 03/02/17 HYDROcodone/APAP 5-325MG [[place] 1 tab PO Q6H PRN 02/05/17 03/02/17 5-325] Previous Rx's Medication Instructions Recorded Amiodarone [Cordarone] 200 mg PO DAILY #30 tab 07/04/16 Clopidogrel [Plavix] 75 mg PO DAILY #30 tab 07/04/16 Metoprolol Tartrate [Lopressor] 25 mg PO BID #60 tab 07/04/16 Aspirin 81 mg PO DAILY #30 chew 08/20/16 Famotidine [Pepcid] 20 mg PO BID #60 tablet 01/13/17 Allergies Allergy/AdvReac Type Severity Reaction Status Date / Time No Known Allergies Allergy Verified 03/02/17 15:52 Review of Systems ROS Statement: Those systems with pertinent positive or pertinent negative responses have been documented in the HPI. ROS Other: All systems not noted in ROS Statement are negative. Constitutional: Denies: fever Eyes: Denies: eye pain ENT: Denies: ear pain Respiratory: Denies: cough Cardiovascular: Denies: chest pain Endocrine: Reports: fatigue Gastrointestinal: Denies: vomiting Genitourinary: Denies: dysuria Musculoskeletal: Denies: back pain Skin: Denies: rash Neurological: Reports: weakness (Generalized) Past Medical History Past Medical History: COPD, Diabetes Mellitus, Hypertension, Myocardial Infarction ([place]) Additional Past Medical History / Comment(s): Obesity, coronary artery disease, hypertension, hyperlipidemia, diabetes mellitus, right internal carotid artery disease with less than 70% blockage, poor dental hygiene with multiple decayed teeth both in the upper and lower jaws, COPD with a baseline FEV1 of 62% of predicted, CHF with a preoperative ejection fraction of 35-40%, recently dx w/ rt breast cancer-no tx as of yet.PT HAD A PNE VACCINE NOT SURE OF DATE BUT PER OLD HX PT DUE IN 2017. Last Myocardial Infarction Date:: "I was young" unsure of year| History of Any Multi-Drug Resistant Organisms: None Reported Past Surgical History: Coronary Bypass/CABG, Heart Catheterization, Tubal Ligation Additional Past Surgical History / Comment(s): double cabg 06-28-16 Past Anesthesia/Blood Transfusion Reactions: No Reported Reaction Past Psychological History: No Psychological Hx Reported Smoking Status: Former smoker Past Alcohol Use History: None Reported Additional Past Alcohol Use History / Comment(s): smoked x 40 years, quit jun 20 2016. Past Drug Use History: None Reported - Past Family History Mother History Unknown: Yes Family Medical History: Diabetes Mellitus Additional Family Medical History / Comment(s): complications of DM at 57 Father History Unknown: Yes Family Medical History: Myocardial Infarction ([place]) Additional Family Medical History / Comment(s): passed in 60's alcoholism General Exam Limitations: altered mental status General appearance: alert, in no apparent distress Head exam: Present: atraumatic Eye exam: Present: normal appearance, PERRL, EOMI ENT exam: Present: normal oropharynx Neck exam: Present: normal inspection Respiratory exam: Present: normal lung sounds bilaterally Cardiovascular Exam: Present: regular rate, normal rhythm GI/Abdominal exam: Present: soft. Absent: distended, tenderness Extremities exam: Present: normal inspection. Absent: pedal edema, calf tenderness Neurological exam: Present: alert, CN II-XII intact. Absent: motor sensory deficit Expanded Cranial nerves: EOM's Intact: Normal Sensory exam: Upper Extremity Light Touch: Normal, Lower Extremity Light Touch: Normal Motor strength exam: RUE: 5, LUE: 5, RLE: 5, LLE: 5 Eye Response: (4) open spontaneously Motor Response: (6) obeys commands Verbal Response: (5) oriented Psychiatric exam: Present: normal affect, normal mood Skin exam: Present: normal color Course Vital Signs 03/02/17 03/02/17 03/02/17 13:15 14:19 15:47 Pulse Rate 52 L 61 52 L Respiratory 20 17 18 Rate Blood Pressure 80/51 114/65 155/69 O2 Sat by Pulse 98 100 100 Oximetry 03/02/17 16:32 Pulse Rate 52 L Respiratory 18 Rate Blood Pressure 154/84 O2 Sat by Pulse 100 Oximetry - Reevaluation(s) Reevaluation #1: 03/02/17 14:17 Patient had a near syncopal episode. Patient reevaluated and is slightly drowsy but arousable and appropriate. Patient states she feels not well and fatigue. Patient also admits she feels slightly short of breath. EKG Findings - EKG Comments: EKG Findings:: Sinus bradycardia 51. TN 12. QRS 96. QT 488. QTC 449. Normal axis. Normal QRS. Inferior and lateral T wave inversion. Medical Decision Making - Medical Decision Making Patient reexamined and does appear improved. Patient resting comfortably in bed. Patient is alert and appropriate. Patient and family updated on results and plan. Case discussed with Dr. Hu and Dr. walter, who will admit. - Lab Data Result diagrams: 03/02/17 14:45 03/02/17 14:45 Lab Results 03/02/17 03/02/17 03/02/17 Range/Units 14:45 14:45 14:45 WBC 4.7 (3.8-10.6) k/uL RBC 2.52 L (3.80-5.40) m/uL Hgb 8.0 L (11.4-16.0) gm/dL Hct 24.3 L (34.0-46.0) % MCV 96.5 (80.0-100.0) fL MCH 31.8 (25.0-35.0) pg MCHC 33.0 (31.0-37.0) g/dL RDW 18.2 H (11.5-15.5) % Plt Count 138 L (150-450) k/uL Neutrophils % 77 % Lymphocytes % 13 % Monocytes % 7 % Eosinophils % 1 % Basophils % 1 % Neutrophils # 3.6 (1.3-7.7) k/uL Lymphocytes # 0.6 L (1.0-4.8) k/uL Monocytes # 0.3 (0-1.0) k/uL Eosinophils # 0.0 (0-0.7) k/uL Basophils # 0.0 (0-0.2) k/uL Poikilocytosis Slight Anisocytosis Slight Macrocytosis Slight PT (9.0-12.0) sec INR (<1.1) APTT (22.0-30.0) sec Sodium 138 (137-145) mmol/L Potassium 3.4 L (3.5-5.1) mmol/L Chloride 109 H (98-107) mmol/L Carbon Dioxide 22 (22-30) mmol/L Anion Gap 7 mmol/L BUN 16 (7-17) mg/dL Creatinine 0.98 (0.52-1.04) mg/dL Est GFR (MDRD) Af Amer >60 (>60 ml/min/1.73 sqM) Est GFR (MDRD) Non-Af 58 (>60 ml/min/1.73 sqM) Glucose 72 L (74-99) mg/dL Calcium 7.3 L (8.4-10.2) mg/dL Ionized Calcium Isi (4.5-5.3) mg/dL Magnesium 1.3 L (1.6-2.3) mg/dL Total Bilirubin 1.4 H (0.2-1.3) mg/dL AST 37 H (14-36) U/L ALT 39 (9-52) U/L Alkaline Phosphatase 103 (38-126) U/L Total Creatine Kinase 49 (30-135) U/L CK-MB (CK-2) 1.5 (0.0-2.4) ng/mL CK-MB (CK-2) Rel Index 3.1 Troponin I 0.027 (0.000-0.034) ng/mL Total Protein 5.4 L (6.3-8.2) g/dL Albumin 2.5 L (3.5-5.0) g/dL TSH 0.074 L (0.465-4.680) mIU/L 03/02/17 03/02/17 Range/Units 14:45 16:24 WBC (3.8-10.6) k/uL RBC (3.80-5.40) m/uL Hgb (11.4-16.0) gm/dL Hct (34.0-46.0) % MCV (80.0-100.0) fL MCH (25.0-35.0) pg MCHC (31.0-37.0) g/dL RDW (11.5-15.5) % Plt Count (150-450) k/uL Neutrophils % % Lymphocytes % % Monocytes % % Eosinophils % % Basophils % % Neutrophils # (1.3-7.7) k/uL Lymphocytes # (1.0-4.8) k/uL Monocytes # (0-1.0) k/uL Eosinophils # (0-0.7) k/uL Basophils # (0-0.2) k/uL Poikilocytosis Anisocytosis Macrocytosis PT 13.1 H (9.0-12.0) sec INR 1.3 (<1.1) APTT 22.1 (22.0-30.0) sec Sodium (137-145) mmol/L Potassium (3.5-5.1) mmol/L Chloride (98-107) mmol/L Carbon Dioxide (22-30) mmol/L Anion Gap mmol/L BUN (7-17) mg/dL Creatinine (0.52-1.04) mg/dL Est GFR (MDRD) Af Amer (>60 ml/min/1.73 sqM) Est GFR (MDRD) Non-Af (>60 ml/min/1.73 sqM) Glucose (74-99) mg/dL Calcium (8.4-10.2) mg/dL Ionized Calcium Isi 4.5 (4.5-5.3) mg/dL Magnesium (1.6-2.3) mg/dL Total Bilirubin (0.2-1.3) mg/dL AST (14-36) U/L ALT (9-52) U/L Alkaline Phosphatase (38-126) U/L Total Creatine Kinase (30-135) U/L CK-MB (CK-2) (0.0-2.4) ng/mL CK-MB (CK-2) Rel Index Troponin I (0.000-0.034) ng/mL Total Protein (6.3-8.2) g/dL Albumin (3.5-5.0) g/dL TSH (0.465-4.680) mIU/L - Radiology Data Radiology results: report reviewed (Computed tomography scan of the brain shows no acute process. Correlate for mastoiditis. CT angiogram of the chest shows no pulmonary embolism. Right breast mass. Pulmonary nodule.), image reviewed ( Chest x-ray shows cardiomegaly.) Disposition Clinical Impression: Near syncope Disposition: ADMITTED IP TO THIS HOSP Referrals: Osvaldo Paredes DO [Primary Care Provider] - 1-2 days
[2017-03-02] MEDS ORDERED: RX INFO: IV CONTRAST WAS GIVEN 1 EACH MISC MISCELLANE PRN (14:18)
[2017-03-02 14:57] LABS: Anisocytosis Slight; Basophils % (A) 1 %; CH 32.2; CHCM 33.6; Eosinophils % (A) 1 %; HCT 24.3 % (34.0-46.0); HDW 3.55; Luc # (Auto) 0.08; Luc % (Auto) 2; Lymphocytes # (A) 0.6 k/uL (1.0-4.8); Lymphocytes % (A) 13 %; MCH 31.8 pg (25.0-35.0); MCV 96.5 fL (80.0-100.0); Macrocytosis Slight; Mean Platelet Volume 8.3; Monocytes # (A) 0.3 k/uL (0-1.0); Monocytes % (A) 7 %; Neutrophils # (A) 3.6 k/uL (1.3-7.7); Neutrophils % (A) 77 %; Poikilocytosis Slight; RBC 2.52 m/uL (3.80-5.40); RDW 18.2 % (11.5-15.5); WBC 4.7 k/uL (3.8-10.6); WBC (Perox) 4.54
[2017-03-02 15:05] LABS: INR 1.3 (<1.1); Partial Thromboplastin Time 22.1 sec (22.0-30.0); Prothrombin Time 13.1 sec (9.0-12.0)
[2017-03-02 15:10] LABS: ALT 39 U/L (9-52); AST 37 U/L (14-36); Alkaline Phosphatase 103 U/L (38-126); Anion Gap 7 mmol/L; Blood Urea Nitrogen 16 mg/dL (7-17); Calcium 7.3 mg/dL (8.4-10.2); Carbon Dioxide 22 mmol/L (22-30); Chloride 109 mmol/L (98-107); Glucose 72 mg/dL (74-99); Magnesium 1.3 mg/dL (1.6-2.3); Non-African American GFR(MDRD) 58 (>60 ml/min/1.73 sqM); Potassium 3.4 mmol/L (3.5-5.1); Sodium 138 mmol/L (137-145); Total Bilirubin 1.4 mg/dL (0.2-1.3); Total Protein 5.4 g/dL (6.3-8.2)
--- NOTE | 2017-03-02 15:20 | XR ---
EXAMINATION TYPE: XR chest 2V DATE OF EXAM: 03/02/2017 COMPARISON: Chest x-ray February 05, 2017. PET CT February 18, 2017. HISTORY: History of breast cancer on chemotherapy presents with lethargy weakness and hypotension. TECHNIQUE: Frontal and lateral views of the chest are obtained. FINDINGS: Sternal wires and mediastinal clips are redemonstrated. There is no focal air space opacity , pleural effusion, or pneumothorax seen. The cardiac silhouette size remains enlarged. Multilevel s purring in the spine is present. IMPRESSION: Cardiomegaly without acute pulmonary process.
[2017-03-02 15:32] LABS: Creatine Kinase MB 1.5 ng/mL (0.0-2.4); Troponin I 0.027 ng/mL (0.000-0.034)
--- NOTE | 2017-03-02 15:48 | CT ---
EXAMINATION TYPE: CT brain wo con DATE OF EXAM: 03/02/2017 COMPARISON: 01/09/2017 HISTORY: 61-year-old female with low blood pressure and unresponsiveness. Syncope. TECHNIQUE: Examination was done in axial plane without intravenous contrast. Coronal and sagittal r econstructions performed. CT DLP: 1070.00 mGycm Automated exposure control for dose reduction was used. FINDINGS: There is no evidence of acute intracranial hemorrhage, acute ischemic changes, mass, mass-effect, or extra-axial fluid collection. There is no effacement of cerebral sulci or basal subarachnoid cister ns. There is no hydrocephalus. There is no midline shift. Martinez-white matter distinction is preserv ed. Moderate patchy subcortical and deep white matter hypodensities similar to prior exam. There is opacification within the inferior left mastoid air cells. Rightward nasal septal deviation. Paranasal sinuses are clear. IMPRESSION: 1. No acute intracranial abnormality seen. Similar moderate patchy changes of chronic small vessel is chemic disease. 2. Minimal trapped fluid in the inferior left mastoid air cells. Correlate for any mastoid pain to ex clude mastoiditis.
--- NOTE | 2017-03-02 15:57 | CT ---
EXAMINATION TYPE: CT angio chest DATE OF EXAM: 03/02/2017 COMPARISON: PET/CT 02/18/2017 HISTORY: 61-year-old female with low blood pressure. TECHNIQUE: Contiguous axial scanning of the chest performed with IV Contrast, patient injected with 7 2 mL of Visipaque 320. Coronal/sagittal MIP reconstructions performed. CT DLP: 609.00 mGycm Automated exposure control for dose reduction was used. FINDINGS: Median sternotomy wires are present with post-CABG changes and mediastinum. Heart is normal size without pericardial effusion. Aorta is normal caliber with very direct takeoff of the left vertebral artery directly from the aorti c arch. Heterogeneous enlargement of the thyroid gland again seen, possible goiter. There is a 2.5 cm soft tissue lesion in the medial right breast. This was present on the 02/18/2017 an d has not significantly changed in size. No thoracic lymphadenopathy by CT size criteria. Satisfactory opacification of the pulmonary artery system without evidence for pulmonary embolus. Mild diffuse bronchial wall thickening could represent bronchitis/asthma. A 5 mm pulmonary nodule ant erior right base on axial image 93 is stable from 08/27/2016 and can continue to be reassessed at foll ow-up. Some strandy atelectasis in the lingula. Otherwise, no consolidation or pleural effusion. Visualized upper abdomen shows some similar diffuse thickening of the left adrenal gland. Bones: Bridging anterior endplate spondylosis suggestive of dish in the mid to lower thoracic spine. IMPRESSION: 1. NO EVIDENCE FOR PULMONARY EMBOLUS. 2. MILD DIFFUSE BRONCHIAL WALL THICKENING COULD REPRESENT BRONCHITIS OR CHRONIC ASTHMA. 3. KNOWN 2.5 CM MEDIAL RIGHT BREAST MASS COMPATIBLE WITH PATIENT'S HISTORY OF BREAST CANCER. 4. A 5 MM ANTERIOR RIGHT BASILAR PULMONARY NODULE, STABLE COMPARED TO 08/27/2016. THIS CAN CONTINUE TO BE REASSESSED AT FOLLOW-UP.
[2017-03-02] MEDS: MAGNESIUM SULFATE-D5W PMX 1 GM in DEXTROSE/WATER 1 100ML.BAG IVPB SCH ×2 (16:49→17:52)
[2017-03-02] MEDS ORDERED: NALOXONE 0.4 MG/ML 1 ML VIAL IV PRN (18:19)
[2017-03-02] MEDS ORDERED: SODIUM CHLORIDE 0.9% 1,000 ML IV SCH (18:30)
[2017-03-02 20:07] LABS: Glucose,Whole Blood 90 mg/dL (75-99)
[2017-03-02] MEDS ORDERED: HYDROcodone/APAP 5-325MG 1 EACH TAB PO PRN (21:01)
[2017-03-02] MEDS ORDERED: ONDANSETRON 4 MG TAB PO PRN (21:01)
[2017-03-02] MEDS ORDERED: METOPROLOL TARTRATE 25 MG TAB PO SCH (21:15)
[2017-03-02] MEDS ORDERED: ERGOCALCIFEROL 50,000 UNIT CAP PO SCH (21:15)
[2017-03-02] MEDS: ATORVASTATIN 40 MG TAB PO SCH (21:30)
[2017-03-02] MEDS: FAMOTIDINE 20 MG TAB PO SCH (21:30)
[2017-03-02] MEDS: ENOXAPARIN 40 MG/0.4 ML SYRINGE SQ SCH (21:30)
[2017-03-02] MEDS: LACTATED RINGERS 1,000 ML IV SCH (21:34)
[2017-03-03 05:10] LABS: Appearance,Urine Cloudy (Clear); Bilirubin,Urine Negative (Negative); Glucose,Urine (UA) Negative (Negative); Ketones,Urine Trace (Negative); Leukocyte Esterase,Urine Moderate (Negative); Mucus,Urine Rare /hpf; Nitrite,Urine Negative (Negative); Particle Count 4234; Protein,Urine Trace (Negative); RBC,Urine 22 /hpf (0-5); Specific Gravity,Urine 1.017 (1.001-1.035); Squamous Epithelial Cell,Urine 1 /hpf (0-4); UA Billing (MACRO vs. MICRO) MICRO; Urobilinogen,Urine <2.0 mg/dL (<2.0); WBC,Urine 24 /hpf (0-5)
[2017-03-03 07:30] LABS: Glucose,Whole Blood 70 mg/dL (75-99)
[2017-03-03 07:41] LABS: Anisocytosis Slight; Basophils % (A) 1 %; CH 32.7; CHCM 33.1; Eosinophils # (A) 0.1 k/uL (0-0.7); Eosinophils % (A) 2 %; HCT 25.3 % (34.0-46.0); HGB 8.3 gm/dL (11.4-16.0); Luc # (Auto) 0.09; Luc % (Auto) 2; Lymphocytes # (A) 0.8 k/uL (1.0-4.8); Lymphocytes % (A) 19 %; MCH 32.6 pg (25.0-35.0); MCHC 32.8 g/dL (31.0-37.0); MCV 99.4 fL (80.0-100.0); Macrocytosis Moderate; Mean Platelet Volume 7.9; Monocytes # (A) 0.4 k/uL (0-1.0); Monocytes % (A) 8 %; Neutrophils # (A) 2.9 k/uL (1.3-7.7); Neutrophils % (A) 68 %; Poikilocytosis Slight; RBC 2.55 m/uL (3.80-5.40); RDW 18.4 % (11.5-15.5); WBC 4.3 k/uL (3.8-10.6); WBC (Perox) 4.28
[2017-03-03 07:52] LABS: ALT 38 U/L (9-52); AST 32 U/L (14-36); Alkaline Phosphatase 113 U/L (38-126); Anion Gap 10 mmol/L; Blood Urea Nitrogen 17 mg/dL (7-17); Calcium 8.4 mg/dL (8.4-10.2); Carbon Dioxide 23 mmol/L (22-30); Chloride 107 mmol/L (98-107); Glucose 66 mg/dL (74-99); Magnesium 1.9 mg/dL (1.6-2.3); Non-African American GFR(MDRD) 57 (>60 ml/min/1.73 sqM); Potassium 3.6 mmol/L (3.5-5.1); Sodium 140 mmol/L (137-145); Total Bilirubin 1.5 mg/dL (0.2-1.3); Total Protein 5.8 g/dL (6.3-8.2)
[2017-03-03] MEDS ORDERED: GABAPENTIN 100 MG CAP PO SCH (09:00)
[2017-03-03] MEDS: FAMOTIDINE 20 MG TAB PO SCH ×2 (09:29→20:52)
[2017-03-03] MEDS: AMIODARONE 200 MG TAB PO SCH (09:29)
[2017-03-03] MEDS: METOPROLOL TARTRATE 12.5 MG TAB PO SCH ×2 (09:29→20:52)
[2017-03-03] MEDS: LISINOPRIL-HCTZ 10-12.5 MG 1 EACH TAB PO SCH (09:29)
[2017-03-03] MEDS: ENOXAPARIN 40 MG/0.4 ML SYRINGE SQ SCH (09:30)
[2017-03-03] MEDS: ASPIRIN 81 MG CHEW PO SCH (09:30)
[2017-03-03] MEDS: CLOPIDOGREL 75 MG TAB PO SCH (09:30)
[2017-03-03] MEDS: MAGNESIUM OXIDE 400 MG TAB PO SCH (09:30)
[2017-03-03 11:56] VITALS: BMI 26.1
--- NOTE | 2017-03-03 11:59 | HP ---
DATE OF ADMISSION: 03/02/2017 PRESENTING COMPLAINT: Weak and tired. HISTORY OF PRESENTING COMPLAINT: This is a 61-year-old patient with rather extensive medical history of Dr. Paredes. Patient diagnosed with breast cancer in June 2016 and uterine cancer 3 months ago. Patient did get chemotherapy, Dr. Cervantes. Patient progressively continues to get more and more weak and tired. Chemotherapy is recently being held. Patient has got multiple family members at home. Today patient became ( ) pale, hence, the home care nurse decided to send the patient in. The patient finds it difficult to stand up, gets numbness and tingling in both the hands and feet. REVIEW OF SYSTEMS: CONSTITUTIONAL: Weak, tired, weight loss. HEENT: Hair loss. RESPIRATORY: Sometimes wheezing. CARDIOVASCULAR: None. GASTROINTESTINAL: None. GENITOURINARY: None. MUSCULOSKELETAL: Pain in the joints. DERMATOLOGICAL: None. HEMATOLOGIC: None. LYMPHATICS: None. PSYCHIATRY: Slightly depressed. NEUROLOGICAL: Numbness and tingling in both the hands and feet. Past medical history of COPD, diabetes mellitus type 2, hypertension, coronary artery disease, CHF with EF 35% to 40%, right internal carotid artery blockage less than ( ) %, poor dental hygiene, breast and ( ) cancer. PAST SURGICAL HISTORY: Coronary artery bypass in 2016, cardiac catheterization, tubal ligation, history of paroxysmal atrial fibrillation. SOCIAL HISTORY: Patient stopped smoking in May 2016, smoked for over 40 years. Lives with daughter and other family members. No alcohol. FAMILY HISTORY: Diabetes. ALLERGIES: None. HOME MEDICATIONS: 1. Plavix 75 mg a day. 2. Lipitor 40 mg q.h.s. 3. Aspirin 81 mg p.o. daily. 4. Cordarone 200 mg a day. 5. Zofran 8 mg p.o. q.8 p.r.n. 6. Lopressor 25 p.o. b.i.d. 7. Magnesium oxide 400 mg p.o. daily. 8. [place] 5 one tablet q.6 p.r.n. 9. Neurontin 100 mg p.o. daily. 10. Pepcid 20 mg p.o. b.i.d. 11. Vitamin D2, 50,000 units p.o. . ALLERGIES: None. On examination, temperature 96.7, pulse 49, respirations 18, blood pressure 139/77, pulse ox 100% on 2 L. GENERAL APPEARANCE: Average build, lying in bed, tired appearing. EYES: Pupils equal. Conjunctivae normal. HEENT: External appearance of the nose and ears normal. Oral cavity dry mucous membranes. Loss of scalp hair. NECK: JVD not raised. Mass not palpable. RESPIRATORY: Effort normal. LUNGS: Diminished breath sounds. CARDIOVASCULAR: First and second sounds normal. No edema. ABDOMEN: Soft, nontender. Liver and spleen not palpable. LYMPHATIC: No lymph nodes palpable in the neck or axillae. PSYCHIATRY: Able to answer questions. Mood and affect somewhat low appearing. NEUROLOGICAL: Pupils equal. Cranial nerves grossly intact. Power and sensation decreased distally. INVESTIGATIONS: White count 4.7, hemoglobin 8, platelets 138. Potassium 3.4. BUN and creatinine normal. Albumin is 2.5. TSH 0.074. ASSESSMENT: 1. Severe medical asthenia and debility from underlying cancer that probably likely is progressive. 2. Protein calorie malnutrition. Patient's albumin is gone done to 2.5. Appetite is low. 3. Hypomagnesemia. 4. Hypoglycemia. Glucose was 72, probably due to decreased oral intake. 5. Breast and uterine cancer/adenocarcinoma, status post chemotherapy. 6. Chronic obstructive pulmonary disease in an ex-smoker. 7. Coronary artery disease with prior history of coronary artery bypass. 8. Essential hypertension. 9. Ischemic cardiomyopathy; ejection fraction of 35% to 40%. 10. Paroxysmal atrial fibrillation. 11. Stage II sacral decubitus ulcer, present on admission. 12. Peripheral neuropathy, probably secondary to chemotherapy. 13. 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 Patient also somewhat bradycardic. Will cut back the dose of beta marvni. Will add lisinopril hydrochlorothiazide if needed. Also consult Dr. Cervantes. Overall prognosis is guarded. Also get physical therapy involved. Prognosis does not look good.
[2017-03-03 12:14] LABS: Glucose,Whole Blood 100 mg/dL (75-99)
[2017-03-03] MEDS: LACTATED RINGERS 1,000 ML IV SCH (16:35)
--- NOTE | 2017-03-03 16:53 | P.CONS ---
History of Present Illness - Reason for Consult Consult date: 03/03/17 oncology care Requesting physician: Hima Murillo - Chief Complaint weakness - History of Present Illness Ms. Denton is a pleasant female pt of Dr. Cervantes who was noted to have an irregular mass in the upper inner quadrant rt. breast by her cardiac surgeon during CABG done on 06/28/16. She had a mammogram on 07/22/16 for this palpable abnormality, revealing a 3cm nodule, with architectural distortion. She had bilateral breast US on the same day confirming a 2.7 x 2.7 x 3.3 cm mass at 3 o' clock on the right as well as an 1 x 0.9 x 0.7 cm mass in the axillary tail on the left. She was referred for an US guided core biopsy on 08/03/16. The left sided lesion was not found on this exam. She had a biopsy on the right confirming an invasive ductal carcinoma, grade 2, ER/SC strongly positive, Her2 Trevon negative. PET was positive in the rt breast mass. It also showed suspicious uptake in para aortic, retroperitoneal and bilateral iliac lymph nodes. Her case was discussed in the [facility] and uptake was also noted in the uterus. She was referred to [facility] for an endometrial biopsy as there were concerns for another priamry, she was started on Anastrozole in the meantime for disease control. Endometrial biopsy on 10/26/16 revealed poorly and moderately differentiated endometroid carcinoma, she was referred to [facility] , Dr. Félix Hu who agreed with neoadjuvant chemo followed by evaluation for both surgeries. She is s/p 3 cycles of Carbo/Taxol. With dose reduction after cycle 2. Pt has not tolerated well, she has been hospitalized after each cycle. She had a PET after cycle 3 that showed good partial response in both cancers and it was decided due to persistent debility to reassess her in 2 weeks for resumption of chemo, her last cycle of chemo was 01/31. Her home care nurse noted low BP, systolic in 80"s, pt was lethargic and less responsive, concern for seizure so, she was brought to the ER for evaluation, pt denies fever, chills, ZHOU, dizziness, nausea, vomiting, SOB, chest pain, diarrhea, constipation, she is feeling better after hydration, appetite is low, she cannot "feel the ground" therefore she is not ambulating Review of Systems All systems: negative Constitutional: Reports as per HPI Past Medical History Past Medical History: COPD, Diabetes Mellitus, Hypertension, Myocardial Infarction ([place]) Additional Past Medical History / Comment(s): Obesity, coronary artery disease, hypertension, hyperlipidemia, diabetes mellitus, right internal carotid artery disease with less than 70% blockage, poor dental hygiene with multiple decayed teeth both in the upper and lower jaws, COPD with a baseline FEV1 of 62% of predicted, CHF with a preoperative ejection fraction of 35-40%, recently dx w/ rt breast cancer-chemo 3 weeks ago. PT HAD A PNE VACCINE NOT SURE OF DATE BUT PER OLD HX PT DUE IN 2017. Last Myocardial Infarction Date:: "I was young" unsure of year| History of Any Multi-Drug Resistant Organisms: None Reported Past Surgical History: Coronary Bypass/CABG, Heart Catheterization, Tubal Ligation Additional Past Surgical History / Comment(s): double cabg 06-28-16 Past Anesthesia/Blood Transfusion Reactions: No Reported Reaction Past Psychological History: No Psychological Hx Reported Smoking Status: Former smoker Past Alcohol Use History: None Reported Additional Past Alcohol Use History / Comment(s): smoked x 40 years, quit jun 20 2016. Past Drug Use History: None Reported - Past Family History Mother History Unknown: Yes Family Medical History: Diabetes Mellitus Additional Family Medical History / Comment(s): complications of DM at 57 Father History Unknown: Yes Family Medical History: Myocardial Infarction ([place]) Additional Family Medical History / Comment(s): passed in 60's alcoholism Medications and Allergies Home Medications Medication Instructions Recorded Confirmed Type Atorvastatin [Lipitor] 40 mg PO HS 08/16/16 03/02/17 History Ergocalciferol (Vitamin D2) 50,000 unit PO TH 01/09/17 03/02/17 History [Vitamin D2] Magnesium Oxide [Mag-Ox] 400 mg PO DAILY 01/09/17 03/02/17 History Ondansetron HCl [Zofran] 8 mg PO Q8H PRN 01/09/17 03/02/17 History Gabapentin [Neurontin] 100 mg PO DAILY 02/05/17 03/02/17 History HYDROcodone/APAP 5-325MG [[place] 1 tab PO Q6H PRN 02/05/17 03/02/17 History 5-325] Allergies Allergy/AdvReac Type Severity Reaction Status Date / Time No Known Allergies Allergy Verified 03/02/17 15:52 Physical Exam Vitals: Vital Signs Temp Pulse Pulse Resp BP BP Pulse Ox 03/03/17 08:00 71 16 03/03/17 07:00 97.4 F L 51 L 16 110/58 97 03/02/17 23:00 97.4 F L 71 16 93/55 99 03/02/17 19:04 96.7 F L 49 L 18 139/77 100 03/02/17 16:32 52 L 18 154/84 100 03/02/17 15:47 52 L 18 155/69 100 Intake and Output 03/02/17 03/03/17 03/03/17 22:59 06:59 14:59 Intake Total 110 990 590 Balance 110 990 590 Intake: IV 110 400 350 Lactated Ringers 1,000 ml 50 400 350 @ 50 mls/hr IV .Q20H ROMEO Rx#:[id number] Sodium Chloride 0.9% 1, 60 000 ml @ 20 mls/hr IV . Q24H ROMEO Rx#:[id number] Oral 590 240 Other: Voiding Method Bedpan Bedpan # Voids 2 2 Weight 69 kg 69 kg Patient Weight 03/04/17 06:59 Weight 69 kg - Constitutional General appearance: cooperative, no acute distress - EENT Eyes: anicteric sclerae ENT: normal oropharynx - Neck Neck: no lymphadenopathy - Respiratory Respiratory: bilateral: CTA - Cardiovascular Heart sounds: normal: S1, S2 leg Peripheral Edema: bilateral: None - Gastrointestinal General gastrointestinal: no absent bowel sounds, no decreased bowel sounds, no distended, no hepatomegaly, no hyperactive bowel sounds, normal bowel sounds, no organomegaly, no rigid, no scaphoid, soft, no splenomegaly, no tenderness, no umbilical hernia, no ventral hernia - Integumentary Integumentary: pale - Neurologic Neurologic: CNII-XII intact - Musculoskeletal Musculoskeletal: strength equal bilaterally - Psychiatric Psychiatric: A&O x's 3, appropriate affect, intact judgment & insight Results CBC & Chem 7: 03/03/17 07:15 03/03/17 07:15 Labs: Abnormal Lab Results - Last 24 Hours (Table) 03/02/17 03/02/17 03/02/17 Range/Units 14:45 14:45 14:45 RBC 2.52 L (3.80-5.40) m/uL Hgb 8.0 L (11.4-16.0) gm/dL Hct 24.3 L (34.0-46.0) % RDW 18.2 H (11.5-15.5) % Plt Count 138 L (150-450) k/uL Lymphocytes # 0.6 L (1.0-4.8) k/uL PT 13.1 H (9.0-12.0) sec Potassium 3.4 L (3.5-5.1) mmol/L Chloride 109 H (98-107) mmol/L Glucose 72 L (74-99) mg/dL POC Glucose (mg/dL) (75-99) mg/dL Calcium 7.3 L (8.4-10.2) mg/dL Magnesium 1.3 L (1.6-2.3) mg/dL Total Bilirubin 1.4 H (0.2-1.3) mg/dL AST 37 H (14-36) U/L Total Protein 5.4 L (6.3-8.2) g/dL Albumin 2.5 L (3.5-5.0) g/dL TSH 0.074 L (0.465-4.680) mIU/L Free T4 3.67 H (0.78-2.19) ng/dL Urine Appearance (Clear) Urine Protein (Negative) Urine Ketones (Negative) Urine Blood (Negative) Ur Leukocyte Esterase (Negative) Urine RBC (0-5) /hpf Urine WBC (0-5) /hpf Urine Mucus (None) /hpf 03/03/17 03/03/17 03/03/17 Range/Units 04:55 07:15 07:15 RBC 2.55 L (3.80-5.40) m/uL Hgb 8.3 L (11.4-16.0) gm/dL Hct 25.3 L (34.0-46.0) % RDW 18.4 H (11.5-15.5) % Plt Count 135 L (150-450) k/uL Lymphocytes # 0.8 L (1.0-4.8) k/uL PT (9.0-12.0) sec Potassium (3.5-5.1) mmol/L Chloride (98-107) mmol/L Glucose 66 L (74-99) mg/dL POC Glucose (mg/dL) (75-99) mg/dL Calcium (8.4-10.2) mg/dL Magnesium (1.6-2.3) mg/dL Total Bilirubin 1.5 H (0.2-1.3) mg/dL AST (14-36) U/L Total Protein 5.8 L (6.3-8.2) g/dL Albumin 2.7 L (3.5-5.0) g/dL TSH (0.465-4.680) mIU/L Free T4 (0.78-2.19) ng/dL Urine Appearance Cloudy H (Clear) Urine Protein Trace H (Negative) Urine Ketones Trace H (Negative) Urine Blood Moderate H (Negative) Ur Leukocyte Esterase Moderate H (Negative) Urine RBC 22 H (0-5) /hpf Urine WBC 24 H (0-5) /hpf Urine Mucus Rare H (None) /hpf 03/03/17 03/03/17 Range/Units 07:27 12:12 RBC (3.80-5.40) m/uL Hgb (11.4-16.0) gm/dL Hct (34.0-46.0) % RDW (11.5-15.5) % Plt Count (150-450) k/uL Lymphocytes # (1.0-4.8) k/uL PT (9.0-12.0) sec Potassium (3.5-5.1) mmol/L Chloride (98-107) mmol/L Glucose (74-99) mg/dL POC Glucose (mg/dL) 70 L 100 H (75-99) mg/dL Calcium (8.4-10.2) mg/dL Magnesium (1.6-2.3) mg/dL Total Bilirubin (0.2-1.3) mg/dL AST (14-36) U/L Total Protein (6.3-8.2) g/dL Albumin (3.5-5.0) g/dL TSH (0.465-4.680) mIU/L Free T4 (0.78-2.19) ng/dL Urine Appearance (Clear) Urine Protein (Negative) Urine Ketones (Negative) Urine Blood (Negative) Ur Leukocyte Esterase (Negative) Urine RBC (0-5) /hpf Urine WBC (0-5) /hpf Urine Mucus (None) /hpf Chest x-ray: report reviewed CT scan - chest: report reviewed CT Scan - head: report reviewed Assessment and Plan (1) Breast cancer Status: Chronic (2) Endometrial adenocarcinoma Status: Chronic (3) Physical debility Narrative/Plan: Reports difficulty in walking and transfer, fear of falling as she cannot feel the floor beneath her feet. Main problem is neuropathy, multifactorial including chemo and diabetic neuropathy. PT/OT, gait training while inpatient. Status: Acute (4) Anemia aplastic aregenerative Narrative/Plan: Secondary to chemo. CBC daily, conservative transfusions, no acute intervention at this time. Status: Chronic Plan: Pt has 2 locally advanced primary cancers, breast and endometrial malignancies. Pt has not treatment since 01/31/17, her PET showed good partial response so it was felt that pt could use some time to regain some strength and improve her performance status. Case discussed extensively with Attending regarding the plan of care. We recommend rehab placement for more extensive therapy. Treatment continues to be on hold
[2017-03-03 17:45] LABS: Glucose,Whole Blood 83 mg/dL (75-99)
--- NOTE | 2017-03-03 17:56 | P.PN ---
Progress Note - Text DATE OF SERVICE: 03/03/2017 PRESENTING COMPLAINT: Weak and tired INTERVAL HISTORY: 61-year-old female presented with severe medical asthenia and debility secondary to cancer. She is preparing today to work with physical therapy, appears tired, almost disinterested in participating. REVIEW OF SYSTEMS: Done for constitutional ,cardiovascular, GI, pulmonary with relevant findings as above. CURRENT MEDICATIONS PHYSICAL EXAM: VITAL SIGNS: GENERAL APPEARANCE: Average build. Lying in bed, not in distress. EYES: Pupils equal. Conjunctiva normal. NECK: JVD not raised. Mass not palpable. RESPIRATORY: Respiratory effort normal. Lungs clear to auscultation. CARDIOVASCULAR: First and second sounds normal. No edema. ABDOMEN: Soft. Liver and spleen not palpable. No tenderness. No mass palpable. PSYCHIATRY: Alert and oriented x3. Mood and affect normal. NEUROLOGICAL: Cranial nerves grossly intact. No facial asymmetry. Power and sensation grossly intact INVESTIGATIONS: White blood cell count 4.3 hemoglobin 8.3 platelet count 135, Computed tomography scan, no evidence of PE, right breast mass consistent with history of breast cancer, right pulmonary nodule stable present on previous exam Brain CT: No acute abnormality seen ASSESSMENT: 1. Severe medical ischemia and debility from underlying cancer that probably is progressive 2. Protein calorie malnutrition patient's albumin has gone down to 2.5 appetite is low. 3. Hypomagnesemia. 4. Hypoglycemia, glucose is between 60 and 70. Probably due to decreased oral intake. 5. Breast and uterine cancer/adenocarcinoma, status post chemotherapy. 6. Chronic obstructive pulmonary disease in an ex-smoker. 7. Coronary artery disease with prior history of coronary artery bypass. 8. Essential hypertension. 9. Ischemic cardiomyopathy, ejection fraction of 35-40%. 10. Paroxysmal atrial fibrillation, 11. Stage II sacral decubitus ulcer, present on admission. 12. Peripheral neuropathy, probably secondary to chemotherapy. 13 alopecia secondary to chemotherapy. PLAN: Adjust adjust glycemic medications to eliminate episodes of hypoglycemia., PT and OT to see patient and work with her, hematology oncology will continue to hold chemotherapy treatments until patient great regains more strength, suggest rehab placement for patient strengthening. We'll continue to monitor closely POT WASHER statement: Patient was seen and examined by nurse practitioner Dorothea Minaya in all elements of the case discussed with attending is Dr. Arreaga
[2017-03-03] MEDS: GABAPENTIN 100 MG CAP PO SCH (20:52)
[2017-03-03] MEDS: ATORVASTATIN 40 MG TAB PO SCH (20:52)
[2017-03-03 20:57] LABS: Glucose,Whole Blood 106 mg/dL (75-99)
[2017-03-04 07:27] LABS: Glucose,Whole Blood 87 mg/dL (75-99)
[2017-03-04] MEDS: GABAPENTIN 100 MG CAP PO SCH ×2 (09:19→23:35)
[2017-03-04] MEDS: AMIODARONE 200 MG TAB PO SCH (09:19)
[2017-03-04] MEDS: ENOXAPARIN 40 MG/0.4 ML SYRINGE SQ SCH (09:19)
[2017-03-04] MEDS: CLOPIDOGREL 75 MG TAB PO SCH (09:19)
[2017-03-04] MEDS: ASPIRIN 81 MG CHEW PO SCH (09:19)
[2017-03-04] MEDS: FAMOTIDINE 20 MG TAB PO SCH ×2 (09:19→20:37)
[2017-03-04] MEDS: METOPROLOL TARTRATE 12.5 MG TAB PO SCH ×2 (09:20→20:40)
[2017-03-04] MEDS: LISINOPRIL-HCTZ 10-12.5 MG 1 EACH TAB PO SCH (09:20)
[2017-03-04] MEDS: MAGNESIUM OXIDE 400 MG TAB PO SCH (09:20)
[2017-03-04 09:40] LABS: Anisocytosis Slight; Basophils % (A) 1 %; CH 32.9; CHCM 34.2; Eosinophils # (A) 0.1 k/uL (0-0.7); Eosinophils % (A) 3 %; HCT 22.2 % (34.0-46.0); HDW 3.69; HGB 7.5 gm/dL (11.4-16.0); Luc # (Auto) 0.07; Luc % (Auto) 2; Lymphocytes # (A) 0.8 k/uL (1.0-4.8); Lymphocytes % (A) 23 %; MCH 32.6 pg (25.0-35.0); MCHC 33.8 g/dL (31.0-37.0); MCV 96.7 fL (80.0-100.0); Macrocytosis Slight; Mean Platelet Volume 7.6; Monocytes # (A) 0.2 k/uL (0-1.0); Monocytes % (A) 7 %; Neutrophils # (A) 2.2 k/uL (1.3-7.7); Neutrophils % (A) 65 %; Poikilocytosis Slight; RDW 18.4 % (11.5-15.5); WBC 3.3 k/uL (3.8-10.6)
[2017-03-04 10:07] LABS: Anion Gap 5 mmol/L; Blood Urea Nitrogen 17 mg/dL (7-17); Calcium 8.5 mg/dL (8.4-10.2); Carbon Dioxide 28 mmol/L (22-30); Chloride 107 mmol/L (98-107); Glucose 80 mg/dL (74-99); Non-African American GFR(MDRD) 56 (>60 ml/min/1.73 sqM); Potassium 3.7 mmol/L (3.5-5.1); Sodium 140 mmol/L (137-145)
[2017-03-04 11:23] LABS: Glucose,Whole Blood 95 mg/dL (75-99)
--- NOTE | 2017-03-04 15:27 | P.PN ---
Progress Note - Text DATE OF SERVICE: 03/04/2017 PRESENTING COMPLAINT: Weak and tired INTERVAL HISTORY: 61-year-old female presented with severe medical asthenia and debility secondary to cancer. Lying in her bed, has worked with physical therapy, maximum assist. Is eating 10% of her meals. Complains about food "not tasting good". REVIEW OF SYSTEMS: Done for constitutional ,cardiovascular, GI, pulmonary, neurological, with relevant findings as above. CURRENT MEDICATIONS [place], Cordarone, Lipitor, Plavix, Lovenox, Zofran. PHYSICAL EXAM: VITAL SIGNS: Temperature 97.8, pulse 53, respiratory rate 18, blood pressure 155 /72, oxygen saturation 95% on room air. GENERAL APPEARANCE: In a chair, comfortable. EYES: Pupils equal. Conjunctiva normal. NECK: JVD not raised. Mass not palpable. RESPIRATORY: Respiratory effort normal. Lungs clear to auscultation. CARDIOVASCULAR: First and second sounds normal. Mild edema. ABDOMEN: Soft. Liver and spleen not palpable. No tenderness. No mass palpable. PSYCHIATRY: Alert and oriented x3. Mood and affect normal. INVESTIGATIONS: White blood cell count 3.3, hemoglobin 7.5, platelet count 124. ASSESSMENT: 1. Severe medical asthenia and debility from underlying cancer that probably is progressive 2. Moderate Protein calorie malnutrition patient's albumin has gone down to 2.5 appetite is low. 3. Hypomagnesemia, corrected 4. Hypoglycemia, glucose is between 60 and 70. Probably due to decreased oral intake. 5. Breast and uterine cancer/adenocarcinoma, status post chemotherapy. 6. Chronic obstructive pulmonary disease in an ex-smoker. 7. Coronary artery disease with prior history of coronary artery bypass. 8. Essential hypertension. 9. Ischemic cardiomyopathy, ejection fraction of 35-40%. 10. Paroxysmal atrial fibrillation, patient is currently in sinus rhythm rate in the 60's. 11. Stage II sacral decubitus ulcer, present on admission. 12. Peripheral neuropathy, probably secondary to chemotherapy. 13 Alopecia secondary to chemotherapy. 14. Gait dysfunction secondary to cancer diagnosis, uses a walker or cane, currently full assist. 15. Pancytopenia, from chemotherapy. PLAN: PT to see patient and work with her, hematology oncology will continue to hold chemotherapy treatments until patient regains more strength, suggest rehab placement. Discussed inpatient rehab with patient and jonny in room. We 'll continue to monitor closely. ONLINE MEDIA DIRECTOR statement: Patient was seen and examined by nurse practitioner Dorothea Minaya in all elements of the case discussed with attending is Dr. Arreaga
[2017-03-04 17:48] LABS: Glucose,Whole Blood 95 mg/dL (75-99)
--- NOTE | 2017-03-04 18:02 | PN ---
DATE OF SERVICE: 03/03/2017 ATTENDING NOTE: This patient was seen and examined by me on 03/03/17. I reviewed the note of my nurse practitioner, Ms. Minaya, discussed it. Additional findings below. Patient admitted with medical debility, asthenia secondary to cancer. Chemotherapy has been held off temporarily. Physical Therapy is working. Patient did tolerate some diet, though still less. On examination, LUNGS: Decreased breath sounds. CARDIOVASCULAR: First and second seconds normal. Patient is able to answer simple questions. ASSESSMENT: 1. Medical asthenia and debility from underlying cancer. 2. Peripheral neuropathy, probably from underlying cancer and chemotherapy. PT, OT consulted. Overall prognosis remains guarded. Discussed at length with Dr. Cervantes from Oncology and with the patient. Will try to do muscle strengthening and will talk to the patient about rehab. Total time spent today was about 40 minutes, including 25 minutes of discussion.
[2017-03-04] MEDS: LACTATED RINGERS 1,000 ML IV SCH (18:22)
[2017-03-04] MEDS: ATORVASTATIN 40 MG TAB PO SCH (20:37)
[2017-03-04 20:58] LABS: Glucose,Whole Blood 87 mg/dL (75-99)
[2017-03-05 07:06] LABS: Glucose,Whole Blood 95 mg/dL (75-99)
[2017-03-05 07:41] LABS: Anisocytosis Slight; Basophils % (A) 0 %; CH 32.9; CHCM 33.6; Eosinophils # (A) 0.1 k/uL (0-0.7); Eosinophils % (A) 4 %; HCT 23.4 % (34.0-46.0); HDW 3.47; HGB 7.8 gm/dL (11.4-16.0); Luc # (Auto) 0.06; Luc % (Auto) 2; Lymphocytes % (A) 31 %; MCH 32.9 pg (25.0-35.0); MCHC 33.4 g/dL (31.0-37.0); MCV 98.5 fL (80.0-100.0); Macrocytosis Slight; Mean Platelet Volume 7.6; Monocytes # (A) 0.3 k/uL (0-1.0); Monocytes % (A) 10 %; Neutrophils # (A) 1.7 k/uL (1.3-7.7); Neutrophils % (A) 52 %; Poikilocytosis Slight; RBC 2.37 m/uL (3.80-5.40); RDW 18.9 % (11.5-15.5); WBC 3.3 k/uL (3.8-10.6); WBC (Perox) 3.24
[2017-03-05 08:15] LABS: Anion Gap 7 mmol/L; Blood Urea Nitrogen 21 mg/dL (7-17); Calcium 8.7 mg/dL (8.4-10.2); Carbon Dioxide 31 mmol/L (22-30); Chloride 104 mmol/L (98-107); Glucose 80 mg/dL (74-99); Non-African American GFR(MDRD) 50 (>60 ml/min/1.73 sqM); Potassium 3.6 mmol/L (3.5-5.1); Sodium 142 mmol/L (137-145)
[2017-03-05] MEDS: LISINOPRIL-HCTZ 10-12.5 MG 1 EACH TAB PO SCH (08:49)
[2017-03-05] MEDS: GABAPENTIN 100 MG CAP PO SCH ×2 (08:49→21:06)
[2017-03-05] MEDS: ENOXAPARIN 40 MG/0.4 ML SYRINGE SQ SCH (08:49)
[2017-03-05] MEDS: MAGNESIUM OXIDE 400 MG TAB PO SCH (08:50)
[2017-03-05] MEDS: AMIODARONE 200 MG TAB PO SCH (08:50)
[2017-03-05] MEDS: FAMOTIDINE 20 MG TAB PO SCH ×2 (08:50→21:06)
[2017-03-05] MEDS: ASPIRIN 81 MG CHEW PO SCH (08:50)
[2017-03-05] MEDS: CLOPIDOGREL 75 MG TAB PO SCH (08:50)
[2017-03-05] MEDS: METOPROLOL TARTRATE 12.5 MG TAB PO SCH ×2 (08:53→21:06)
[2017-03-05 11:29] LABS: Glucose,Whole Blood 103 mg/dL (75-99)
--- NOTE | 2017-03-05 11:30 | PN ---
DATE OF SERVICE: 03/04/2017 ATTENDING NOTE: This patient was seen and examined by me earlier today. I reviewed the note of my nurse practitioner, Ms. Minaya. Discussed additional findings below. This patient presented with asthenia following cancer, has got peripheral neuropathy. Patient is a full assist with physical therapy, eating small amounts. Granddaughter is at the bedside. On examination, LUNGS: Decreased breath sounds. CARDIOVASCULAR: First and second sounds normal. Mood and affect low -appearing. ASSESSMENT: 1. Severe medical asthenia. 2. Protein calorie malnutrition. 3. Peripheral neuropathy, secondary to chemotherapy. PLAN: I did talk to the patient and granddaughter. They are okay with going to rehab. Will hopefully happen on Monday. Patient encouraged to increase oral intake and given ordered milkshakes.
[2017-03-05] MEDS: LACTATED RINGERS 1,000 ML IV SCH (11:50)
--- NOTE | 2017-03-05 16:16 | P.PN ---
Progress Note - Text DATE OF SERVICE: 03/05/2017 PRESENTING COMPLAINT: Weak and tired INTERVAL HISTORY: 61-year-old female presented with severe medical asthenia and debility secondary to cancer. Lying in her bed, is not been out of the bed today . Appears bright-eyed, making jokes. Is eating 25% of her meals. Complains about food "not tasting good". Willing to drink ensure shakes. REVIEW OF SYSTEMS: Done for constitutional ,cardiovascular, GI, pulmonary, neurological, with relevant findings as above. CURRENT MEDICATIONS [place], Cordarone, Lipitor, Plavix, Lovenox, Zofran. PHYSICAL EXAM: VITAL SIGNS: Temperature 97.8, pulse 53, respiratory rate 18, blood pressure 155 /72, oxygen saturation 95% on room air. GENERAL APPEARANCE: Lying in the bed, comfortable. EYES: Pupils equal. Conjunctiva normal. NECK: JVD not raised. Mass not palpable. RESPIRATORY: Respiratory effort normal. Lungs clear to auscultation. CARDIOVASCULAR: First and second sounds normal. Mild edema. ABDOMEN: Soft. Liver and spleen not palpable. No tenderness. No mass palpable. PSYCHIATRY: Alert and oriented x3. Mood and affect normal. NEUROLOGICAL: Weakness present in both lower extremities, strength 4/5. INVESTIGATIONS: White blood cell count 3.3, hemoglobin 7.5, platelet count 124. ASSESSMENT: 1. Severe medical asthenia and debility from underlying cancer that probably is progressive 2. Moderate Protein calorie malnutrition patient's albumin has gone down to 2.5 appetite is low. 3. Hypomagnesemia, corrected 4. Hypoglycemia, glucose is between 60 and 70. Probably due to decreased oral intake. 5. Breast and uterine cancer/adenocarcinoma, status post chemotherapy. 6. Chronic obstructive pulmonary disease in an ex-smoker. 7. Coronary artery disease with prior history of coronary artery bypass. 8. Essential hypertension. 9. Ischemic cardiomyopathy, ejection fraction of 35-40%. 10. Paroxysmal atrial fibrillation, patient is currently in sinus rhythm rate in the 60's. 11. Stage II sacral decubitus ulcer, present on admission. 12. Peripheral neuropathy, probably secondary to chemotherapy. 13 Alopecia secondary to chemotherapy. 14. Gait dysfunction secondary to cancer diagnosis, uses a walker or cane, currently full assist. 15. Pancytopenia, from chemotherapy. PLAN: Discussion had again today with granddaughters and patient regarding diet and plan for discharge. Patient and family agreeable, questions answered. We will continue current medications and treatment plan. CLIP ON SUNGLASSES INSPECTOR statement: Patient was seen and examined by nurse practitioner Dorothea Minaya in all elements of the case discussed with attending is Dr. Arreaga
[2017-03-05 17:21] LABS: Glucose,Whole Blood 146 mg/dL (75-99)
[2017-03-05 20:15] LABS: Glucose,Whole Blood 159 mg/dL (75-99)
[2017-03-05] MEDS: ATORVASTATIN 40 MG TAB PO SCH (21:06)
[2017-03-05] MEDS: DRONABINOL 2.5 MG CAP PO SCH (21:28)
[2017-03-06 07:52] LABS: Glucose,Whole Blood 95 mg/dL (75-99)
[2017-03-06 08:03] LABS: Anisocytosis Slight; Basophils % (A) 0 %; CH 33.4; CHCM 33.4; Eosinophils # (A) 0.1 k/uL (0-0.7); Eosinophils % (A) 3 %; HCT 24.1 % (34.0-46.0); HDW 3.35; HGB 7.8 gm/dL (11.4-16.0); Luc # (Auto) 0.06; Luc % (Auto) 2; Lymphocytes % (A) 25 %; MCH 32.6 pg (25.0-35.0); MCHC 32.4 g/dL (31.0-37.0); MCV 100.6 fL (80.0-100.0); Macrocytosis Moderate; Mean Platelet Volume 8.1; Monocytes # (A) 0.3 k/uL (0-1.0); Monocytes % (A) 8 %; Neutrophils # (A) 2.6 k/uL (1.3-7.7); Neutrophils % (A) 63 %; RBC 2.39 m/uL (3.80-5.40); RDW 18.8 % (11.5-15.5); WBC 4.1 k/uL (3.8-10.6)
[2017-03-06 08:13] LABS: Anion Gap 6 mmol/L; Blood Urea Nitrogen 29 mg/dL (7-17); Calcium 8.8 mg/dL (8.4-10.2); Carbon Dioxide 31 mmol/L (22-30); Chloride 104 mmol/L (98-107); Glucose 88 mg/dL (74-99); Non-African American GFR(MDRD) 51 (>60 ml/min/1.73 sqM); Potassium 3.9 mmol/L (3.5-5.1); Sodium 141 mmol/L (137-145)
[2017-03-06] MEDS: DRONABINOL 2.5 MG CAP PO SCH ×2 (09:06→18:25)
[2017-03-06] MEDS: FAMOTIDINE 20 MG TAB PO SCH ×2 (09:07→20:56)
[2017-03-06] MEDS: ENOXAPARIN 40 MG/0.4 ML SYRINGE SQ SCH (09:07)
[2017-03-06] MEDS: METOPROLOL TARTRATE 12.5 MG TAB PO SCH ×2 (09:07→20:56)
[2017-03-06] MEDS: LISINOPRIL-HCTZ 10-12.5 MG 1 EACH TAB PO SCH (09:07)
[2017-03-06] MEDS: MAGNESIUM OXIDE 400 MG TAB PO SCH (09:07)
[2017-03-06] MEDS: GABAPENTIN 100 MG CAP PO SCH ×2 (09:07→20:56)
[2017-03-06] MEDS: AMIODARONE 200 MG TAB PO SCH (09:08)
[2017-03-06] MEDS: ASPIRIN 81 MG CHEW PO SCH (09:08)
[2017-03-06] MEDS: CLOPIDOGREL 75 MG TAB PO SCH (09:08)
--- NOTE | 2017-03-06 10:43 | PN ---
DATE OF SERVICE: 03/05/2017 ATTENDING NOTE: The patient was seen and examined by me earlier today. Patient has a double cancer, awaiting rehab, not eating much. Tired. Family at the bedside. On examination, LUNGS: Decreased breath sounds. CARDIOVASCULAR: First and second sounds heard. Awake, answering questions. ASSESSMENT: 1. Medical debility from underlying dual cancer, awaiting rehab. 2. Peripheral neuropathy. PLAN: Care was discussed with the patient and family again encouraged to increase her oral intake. Will add Marinol. Looking at inpatient rehab.
--- NOTE | 2017-03-06 11:33 | P.DS ---
Providers Date of admission: 03/02/17 18:19 Expected date of discharge: 03/06/17 Attending physician: Matthew Arreaga Consults: 03/02/17 18:20 Consult Physician Urgent Consulting Provider: Yanni Hu Consult Reason/Comments: near syncope, oncological care Do you want consulting provider notified?: Already Contacted 03/04/17 15:05 Consult Physician Routine Consulting Provider: Jevon Govea Consult Reason/Comments: toenails clipped Do you want consulting provider notified?: Yes Primary care physician: Osvaldo Paredes [facility] Course: FINAL Diagnoses: 1. Severe medical asthenia and debility form underlying cancer that probably is progressive. 2. Moderate protein calorie malnutriiton patient albumin ihas gone down to 2.5, appetite is low. 3. Hypomagnesemia, corrected 4. Hypoglycemia, glucose between 60 and 70. Probably due to decreased oral intake. 5. Breast uterine cancer, adenocarcinoma. Status post chemotherapy. 6. Chronic obstructive pleuritic disease and an ex-smoker. 7. Coronary artery disease with prior history of coronary artery bypass. 8 essential hypertension. 9. Ischemic cardiomyopathy, ejection fraction of 35-40%. 10. Paroxysmal atrial fibrillation, patient is currently in sinus rhythm rate in the 60s. 11. Stage II sacral decubitus all current ulcer present on admission. 12. Peripheral neuropathy, probably secondary to chemotherapy. 13. Alopecia secondary to chemotherapy. 14. Gait dysfunction secondary to cancer diagnosis, uses a walker or cane, currently full cyst. 15. Pancytopenia, from chemotherapy. 16. Anorexia secondary to cancer. HOSPITAL COURSE: This is 61-year-old female patient of Dr. Paredes. Patient diagnosed with breast cancer and uterine cancer receive chemotherapy with Dr. Cervantes. Presented to the hospital with severe medical asthenia secondary to cancer/treatments treatments currently on hold. Has difficulty standing up, has numbness and tingling in both hands and feet Physical therapy consulted and worked with the patient. Patient has a poor appetite and eating a low percentage of her meals nutritional services consulted. Shakes added and encouragement provided to eat. Patient needs more intensive therapy therefore will be transferred to [facility] for physical therapy and strengthening. Patient seen and examined by nurse practitioner Dorothea Minaya in all elements of the case discussed with attending Dr. Arreaga. PHYSICAL EXAM: GENERAL APPEARANCE: Lying in the bed, comfortable. RESPIRATORY: Respiratory effort normal. Lungs clear to auscultation. CARDIOVASCULAR: First and second sounds normal. Mild edema. . PSYCHIATRY: Alert and oriented x3. Mood and affect normal. NEUROLOGICAL: Weakness present in both lower extremities, strength 4/5. Pertinent Studies: CHEST CTA: No evidence for pulmonary embolus BRAIN CT: No acute abnormality seen in all trapped air to the inferior left mastoid cells correlate clinically Plan - Discharge Summary New Discharge Prescriptions: New Dronabinol [Marinol] 5 mg PO AC-BID #60 cap Gabapentin [Neurontin] 200 mg PO BID #60 cap Lisinopril-Hctz 10-12.5 mg [Zestoretic 10-12.5] 1 each PO DAILY #30 tab Metoprolol Tartrate [Lopressor] 12.5 mg PO BID #30 tab Continue Amiodarone [Cordarone] 200 mg PO DAILY #30 tab Clopidogrel [Plavix] 75 mg PO DAILY #30 tab Atorvastatin [Lipitor] 40 mg PO HS Aspirin 81 mg PO DAILY #30 chew Ergocalciferol (Vitamin D2) [Vitamin D2] 50,000 unit PO TH Magnesium Oxide [Mag-Ox] 400 mg PO DAILY Ondansetron HCl [Zofran] 8 mg PO Q8H PRN PRN Reason: Nausea Famotidine [Pepcid] 20 mg PO BID #60 tablet HYDROcodone/APAP 5-325MG [[place] 5-325] 1 tab PO Q6H PRN PRN Reason: Pain Gabapentin [Neurontin] 100 mg PO DAILY Discontinued Metoprolol Tartrate [Lopressor] 25 mg PO BID #60 tab Discharge Medication List Amiodarone [Cordarone] 200 mg PO DAILY #30 tab 07/04/16 [Rx] Clopidogrel [Plavix] 75 mg PO DAILY #30 tab 07/04/16 [Rx] Atorvastatin [Lipitor] 40 mg PO HS 08/16/16 [History] Aspirin 81 mg PO DAILY #30 chew 08/20/16 [Rx] Ergocalciferol (Vitamin D2) [Vitamin D2] 50,000 unit PO TH 01/09/17 [History] Magnesium Oxide [Mag-Ox] 400 mg PO DAILY 01/09/17 [History] Ondansetron HCl [Zofran] 8 mg PO Q8H PRN 01/09/17 [History] Famotidine [Pepcid] 20 mg PO BID #60 tablet 01/13/17 [Rx] Gabapentin [Neurontin] 100 mg PO DAILY 02/05/17 [History] HYDROcodone/APAP 5-325MG [[place] 5-325] 1 tab PO Q6H PRN 02/05/17 [History] Dronabinol [Marinol] 5 mg PO AC-BID #60 cap 03/06/17 [Rx] Gabapentin [Neurontin] 200 mg PO BID #60 cap 03/06/17 [Rx] Lisinopril-Hctz 10-12.5 mg [Zestoretic 10-12.5] 1 each PO DAILY #30 tab [Rx] Metoprolol Tartrate [Lopressor] 12.5 mg PO BID #30 tab 03/06/17 [Rx] Follow up Appointment(s)/Referral(s): James Cervantes MD [STAFF PHYSICIAN] - 1 Week Jason Cedeno DO [STAFF PHYSICIAN] - 03/07/17 Osvaldo Paredes DO [Primary Care Provider] - As Needed Ambulatory/Diagnostic Orders: Basic Metabolic Panel [LAB.AMB] Location: Determined By Patient
[2017-03-06 11:41] LABS: Glucose,Whole Blood 127 mg/dL (75-99)
[2017-03-06 17:32] LABS: Glucose,Whole Blood 134 mg/dL (75-99)
[2017-03-06 20:37] LABS: Glucose,Whole Blood 169 mg/dL (75-99)
[2017-03-06] MEDS: ATORVASTATIN 40 MG TAB PO SCH (20:56)
[2017-03-06 23:54] VITALS: PULSE 60
[2017-03-07 07:11] LABS: Glucose,Whole Blood 92 mg/dL (75-99)
[2017-03-07 07:24] VITALS: BP 152/67; RESP 18; TEMP 97.9
[2017-03-07] MEDS: DRONABINOL 2.5 MG CAP PO SCH (07:40)
[2017-03-07] MEDS: METOPROLOL TARTRATE 12.5 MG TAB PO SCH (07:40)
[2017-03-07] MEDS: GABAPENTIN 100 MG CAP PO SCH (07:41)
[2017-03-07] MEDS: AMIODARONE 200 MG TAB PO SCH (07:41)
[2017-03-07] MEDS: ENOXAPARIN 40 MG/0.4 ML SYRINGE SQ SCH (07:41)
[2017-03-07] MEDS: FAMOTIDINE 20 MG TAB PO SCH (07:42)
[2017-03-07] MEDS: ASPIRIN 81 MG CHEW PO SCH (07:42)
[2017-03-07] MEDS: CLOPIDOGREL 75 MG TAB PO SCH (07:42)
[2017-03-07] MEDS: MAGNESIUM OXIDE 400 MG TAB PO SCH (07:43)
[2017-03-07] MEDS: LISINOPRIL-HCTZ 10-12.5 MG 1 EACH TAB PO SCH (07:43)
--- NOTE | 2017-03-07 09:18 | DS ---
DATE OF ADMISSION: 03/02/2017 DATE OF DISCHARGE: 03/06/2017 ATTENDING NOTE: This patient was seen and examined by me today. I reviewed the discharge summary by my nurse practitioner, Ms. Minaya. Discussed additional note as before. This is a patient admitted with severe asthenia from being treated with chemotherapy for her dual cancer, has got peripheral neuropathy for which Neurontin was added. Because of poor appetite, Marinol was added. Depending how she does functionally. Further treatment will be done. ON EXAM: LUNGS: Decreased breath sounds. CARDIOVASCULAR: First and second sounds normal. Patient is answering questions. DISPOSITION: [place]. Rest as per note of Dorothea Minaya, please refer to her discharge summary. Discharge planning more than 35 minutes.
== END 2017-03-07 10:42 | DRG 73 ==
LOC: EC 12:58 → 5ONC 18:19
PROVIDERS: ADMIT Hospitalist; ATTEND Hospitalist
DX: G62.0 Drug-induced polyneuropathy (principal); D61.810 Antineoplastic chemotherapy induced pancytopenia; E44.0 Moderate protein-calorie malnutrition; I11.0 Hypertensive heart disease with heart failure; L89.152 Pressure ulcer of sacral region, stage 2; I50.9 Heart failure, unspecified; E11.649 Type 2 diabetes mellitus with hypoglycemia without coma; E83.42 Hypomagnesemia; I48.0 Paroxysmal atrial fibrillation; E11.40 Type 2 diabetes mellitus with diabetic neuropathy, unspecified; C50.211 Malignant neoplasm of upper-inner quadrant of right female breast; C54.1 Malignant neoplasm of endometrium; Z17.0 Estrogen receptor positive status [ER+]; R00.1 Bradycardia, unspecified; M62.81 Muscle weakness (generalized); T45.1X5A Adverse effect of antineoplastic and immunosuppressive drugs, initial encounter; I25.5 Ischemic cardiomyopathy; J44.9 Chronic obstructive pulmonary disease, unspecified; I25.10 Atherosclerotic heart disease of native coronary artery without angina pectoris; E78.5 Hyperlipidemia, unspecified; I25.2 Old myocardial infarction; R26.2 Difficulty in walking, not elsewhere classified; L65.9 Nonscarring hair loss, unspecified; Z95.1 Presence of aortocoronary bypass graft; Z87.891 Personal history of nicotine dependence; Z79.02 Long term (current) use of antithrombotics/antiplatelets; Z79.82 Long term (current) use of aspirin; Z79.899 Other long term (current) drug therapy; Y92.009 Unspecified place in unspecified non-institutional (private) residence as the place of occurrence of the external cause
CPT/HCPCS: 36415; 70450; 71020; 71275; 80048; 80053; 81001; 82330; 82550; 82553; 83735; 84439; 84443; 84484; 85025; 85610; 85730; 93005; 96365; 99285